=== PATIENT | female | born 1955 | race Caucasian/White ===

== ENCOUNTER 2016-10-08 17:24 | Emergency (ER) | payer MEDICARE ==
[2016-10-08 18:21] VITALS: PULSE 87
--- NOTE | 2016-10-08 18:54 | ERPHSYRPT ---
- History of Present Illness Source: patient, family Exam Limitations: no limitations Patient Subjective Stated Complaint: fall at noon Triage Nursing Assessment: fell back weedeating today and injured lt wrist and skin tear x2 to lt elbow. radial pulse present. swelling lt wrist noted. no other injury. pain with any movement Occurred: hours ago (6) Method of Injury: fell Quality: constant Severity of Pain-Max: moderate Severity of Pain-Current: moderate Extremities Pain Location: elbow: left, wrist: left Modifying Factors: Improves With: movement Hx Tetanus, Diphtheria Vaccination/Date Given: Yes Hx Influenza Vaccination/Date Given: No Hx Pneumococcal Vaccination/Date Given: No Immunizations Up to Date: Yes <ABEBE OLIVER - Last Filed: 10/08/16 18:50> <ARABELLA LIPSCOMB - Last Filed: 10/08/16 19:47> - History of Present Illness Time Seen by Provider: 10/08/16 18:30 Physician History: PT STATES SHE WAS WEED-EATING AT HOME AND FELL BACKWARDS WITH RESULTANT PAIN IN THE LEFT WRIST AND A SKIN TEAR ON THE LEFT ELBOW; PT CAN FEEL HER LEFT HAND DIGITS; DENIES ANY OTHER PAIN; DENIES PRIOR INJURY TO THE LEFT WRIST. (ARABELLA LIPSCOMB) Allergies/Adverse Reactions: No Known Drug Allergies Allergy (Verified 10/08/16 18:21) Home Medications: Clopidogrel Bisulfate [Plavix] 75 mg PO HS 04/09/12 [History] Albuterol Sulfate [Proventil Hfa] 2 puff IH QID 01/28/15 [History] Amlodipine Besylate 5 mg [Norvasc 5 mg] 5 mg PO HS 01/28/15 [History] Baclofen 20 mg PO QID 01/28/15 [History] Fluticasone/Salmeterol [Advair 250-50 Diskus] 1 puff IH BID 01/28/15 [History] Gabapentin Enacarbil [Horizant] 900 mg PO BID 01/28/15 [History] Ropinirole HCl 4 mg PO HS 01/28/15 [History] Tiotropium [place] [Spiriva] 18 mcg IH QAM 01/28/15 [History] Albuterol 2.5 mg/3 ml Neb [Proventil 2.5 mg/3 ml Neb] 2.5 mg IH Q6H [History] Escitalopram Oxalate 10 mg [Lexapro 10 MG] 20 mg PO HS 05/08/15 [History] Nitroglycerin 0.4 mg Tablet [Nitrostat 0.4 MG Tablet] 0.4 mg SL UD [History] Prednisone 10 mg [Deltasone 10 mg] 10 mg PO DAILY 08/24/15 [History] - Review of Systems Constitutional: No Symptoms Eyes: No Symptoms Ears, Nose, & Throat: No Symptoms Respiratory: No Symptoms Cardiac: No Symptoms Abdominal/Gastrointestinal: No Symptoms Musculoskeletal: Joint Pain (Left wrist and elbow), Joint Swelling Skin: Other (skin tear 3 cm length left elbow. Bleeding controlled.) Neurological: No Symptoms Psychological: No Symptoms Endocrine: No Symptoms Hematologic/Lymphatic: No Symptoms Immunological/Allergic: No Symptoms <ABEBE OLIVER - Last Filed: 10/08/16 18:50> - Past Medical History Pertinent Past Medical History: Yes Neurological History: Peripheral Neuropathy ENT History: No Pertinent History Cardiac History: Coronary Artery Disease, High Cholesterol, Hypertension, Myocardial Infarction ([place]) Respiratory History: COPD Endocrine Medical History: No Pertinent History Musculoskeletal History: Degenerative Disk Disease, Osteoarthritis GI Medical History: GERD, Gallbladder Disease History: No Pertinent History Psycho-Social History: Depression Female Reproductive Disorders: Fibroids Other Medical History: CERVICAL FUSION 08/2015. LEFT SHOULDER SURGERY 11/2015 - PER PATIENT HAD SPURS REMOVED. RESTLESS LEG SYNDROME. DEPRESSION - Past Surgical History Past Surgical History: Yes Neuro Surgical History: No Pertinent History Cardiac: Cardiac Catheterization, Cardiac Stent Respiratory: No Pertinent History Gastrointestinal: Cholecystectomy Genitourinary: No Pertinent History Musculoskeletal: Orthopedic Surgery Female Surgical History: Hysterectomy Other Surgical History: left knee scope. toe nail removel. shoulder surgery. thumb surgery - Social History Smoking Status: Current every day smoker How long have you smoked: 45 Exposure to second hand smoke: No Drug Use: none Patient Lives Alone: Yes - Female History Hx Now: No <ABEBE OLIVER - Last Filed: 10/08/16 18:50> - Physical Exam General Appearance: moderate distress Eyes, Ears, Nose, Throat Exam: normal ENT inspection, pharynx normal Neck Exam: normal inspection, non-tender, supple, full range of motion Cardiovascular/Respiratory Exam: chest non-tender, normal breath sounds Abdominal Exam: non-tender, soft Back Exam: normal inspection, normal range of motion Shoulder Exam: normal inspection, non-tender Elbow/Forearm Exam: abrasions Wrist Exam: bone tenderness, deformity, ecchymosis, soft tissue tenderness, swelling Hand Exam: normal inspection, non-tender, no evidence of injury Neuro/Tendon Exam: normal sensation, normal motor functions Mental Status Exam: alert, oriented x 3, cooperative Skin Exam: normal color, warm, dry SpO2 Interpretation: normal SpO2: 95 Oxygen Delivery: Room Air <ABEBE OLIVER - Last Filed: 10/08/16 18:50> - Course Nursing assessment & vital signs reviewed: Yes - Radiology Exams Left Wrist X-ray Interpretation: Interpreted by me, No Fracture <ARABELLA LIPSCOMB - Last Filed: 10/08/16 19:47> Ordered Tests: Active Orders 24 hr Category Date Time Status WRIST (MIN 3 VIEWS) Stat Exams 10/08/16 18:39 Taken <ABEBE OLIVER - Last Filed: 10/08/16 18:50> - Departure Time of Disposition: 19:47 Departure Disposition: Home Critical Care Time: No <ARABELLA LIPSCOMB - Last Filed: 10/08/16 19:47> - Departure Clinical Impression: SKIN TEAR TO THE LEFT ELBOW, LEFT WRIST SPRAIN Condition: Fair Referrals: JASVIR CALIXTO [Primary Care Provider] - Instructions: Prevent Falls, Wrist Sprain Additional Instructions: FOLLOW UP WITH PRIVATE DOCTOR TOMORROW. WEAR LEFT ARM SLING FOR COMFORT. WEAR FRED WRAP TO LEFT WRIST FOR 4 DAYS. ELEVATE LEFT WRIST ABOVE HEART LEVEL FOR 24 HOURS. KEEP BANDAGE ON LEFT ELBOW WOUND UNTIL PRIVATE DOCTOR IS SEEN TOMORROW. Prescriptions: Tramadol HCl 50 mg [Ultram 50 mg] 50 mg PO Q4H PRN PRN #14 tablet PRN Reason: Pain Cephalexin Monohydrate [Keflex] 500 mg PO TID #20 capsule
[2016-10-08] MEDS ORDERED: ULTRAM 50 MG PO ONE (19:47)
[2016-10-08] MEDS ORDERED: Rocephin 1000 MG INJ IM ONE (19:47)
[2016-10-08] MEDS ORDERED: Rocephin 1000 MG INJ ONE (19:59)
[2016-10-08] MEDS ORDERED: ULTRAM 50 MG ONE (19:59)
[2016-10-08] MEDS ORDERED: XYLOCAINE 1% HCL 20 ML MDV ONE (19:59)
[2016-10-08 20:31] VITALS: BP 118/60; O2SAT 100
--- NOTE | 2016-10-09 08:48 | XRAY ---
Indication: Pain following fall. Comparison: None 3 views of the left wrist demonstrates radiocarpal degenerative joint space narrowing, mild first metacarpal multangular degenerative changes, and what appears to be old nonunited ulnar styloid fracture. No other bony, articular, or soft tissue abnormalities.
== END 2016-10-08 20:31 | disposition home or self-care (01) ==
LOC: ED 17:24
DX: S51.012A Laceration without foreign body of left elbow, initial encounter (principal); S63.502A Unspecified sprain of left wrist, initial encounter; W01.0XXA Fall on same level from slipping, tripping and stumbling without subsequent striking against object, initial encounter; Y93.H2 Activity, gardening and landscaping
CPT/HCPCS: 73110; 96372; 99284; J0696; A9270-GY

== ENCOUNTER 2016-12-02 17:14 | Emergency (ER) | payer MEDICARE ==
[2016-12-02] MEDS ORDERED: NORCO 5/325 MG PO ONE (17:29)
[2016-12-02] MEDS ORDERED: BACIGUENT PACKET TP ONE (17:29)
[2016-12-02] MEDS ORDERED: BACIGUENT PACKET ONE (17:33)
[2016-12-02] MEDS ORDERED: NORCO 5/325 MG ONE (17:34)
[2016-12-02] MEDS ORDERED: Adacel Vial IM ONE ×2 (17:41→17:44)
--- NOTE | 2016-12-02 17:41 | ERPHSYRPT ---
- History of Present Illness Time Seen by Provider: 12/02/16 17:28 Source: patient Patient Subjective Stated Complaint: pt states she fell off of a ladder and injured left foot and ankle. pt c/o joshi to that area. denies hitting head. Triage Nursing Assessment: pt recinos, warm, dry. swelling and bruising noted to left foot. abrasion to left foot noted. pedal pulse strong. no deformity to ankle noted. Physician History: CC: fall Hx: 61 y/o patient of ROSIE Olson. She fell on a ladder. Hurt the left foot/ankle. She has an abrasion. Pain is moderate. Unsure last tetanus vaccine. No neck or back pain. Takes plavix. No head injury. No allergies. Hurts to walk. Occurred: just prior to arrival Lower Extremities Pain: foot: left, ankle: left Allergies/Adverse Reactions: No Known Drug Allergies Allergy (Verified 12/02/16 17:24) Home Medications: Clopidogrel Bisulfate [Plavix] 75 mg PO HS 04/09/12 [History] Albuterol Sulfate [Proventil Hfa] 2 puff IH QID 01/28/15 [History] Amlodipine Besylate 5 mg [Norvasc 5 mg] 5 mg PO HS 01/28/15 [History] Baclofen 20 mg PO QID 01/28/15 [History] Fluticasone/Salmeterol [Advair 250-50 Diskus] 1 puff IH BID 01/28/15 [History] Gabapentin Enacarbil [Horizant] 900 mg PO BID 01/28/15 [History] Ropinirole HCl 4 mg PO HS 01/28/15 [History] Tiotropium [place] [Spiriva] 18 mcg IH QAM 01/28/15 [History] Albuterol 2.5 mg/3 ml Neb [Proventil 2.5 mg/3 ml Neb] 2.5 mg IH Q6H [History] Escitalopram Oxalate 10 mg [Lexapro 10 MG] 20 mg PO HS 05/08/15 [History] Nitroglycerin 0.4 mg Tablet [Nitrostat 0.4 MG Tablet] 0.4 mg SL UD [History] Prednisone 10 mg [Deltasone 10 mg] 10 mg PO DAILY 08/24/15 [History] Hx Tetanus, Diphtheria Vaccination/Date Given: Yes (up to date) Hx Influenza Vaccination/Date Given: No Hx Pneumococcal Vaccination/Date Given: No Immunizations Up to Date: Yes - Review of Systems Constitutional: No Symptoms Eyes: No Symptoms Respiratory: No Dyspnea Cardiac: No Chest Pain, No Syncope Abdominal/Gastrointestinal: No Abdominal Pain, No Nausea, No Vomiting Musculoskeletal: Fall, Injury (left foot/ankle), No Back Pain, No Neck Pain Skin: No Rash Neurological: No Focal Weakness, No Headache, No Parasthesia All Other Systems: Reviewed and Negative - Past Medical History Pertinent Past Medical History: Yes Neurological History: Peripheral Neuropathy ENT History: No Pertinent History Cardiac History: Coronary Artery Disease, High Cholesterol, Hypertension, Myocardial Infarction ([place]) Respiratory History: COPD Endocrine Medical History: No Pertinent History Musculoskeletal History: Degenerative Disk Disease, Osteoarthritis GI Medical History: GERD, Gallbladder Disease History: No Pertinent History Psycho-Social History: Depression Female Reproductive Disorders: Fibroids Other Medical History: CERVICAL FUSION 08/2015. LEFT SHOULDER SURGERY 11/2015 - PER PATIENT HAD SPURS REMOVED. RESTLESS LEG SYNDROME. DEPRESSION - Past Surgical History Past Surgical History: Yes Neuro Surgical History: No Pertinent History Cardiac: Cardiac Catheterization, Cardiac Stent Respiratory: No Pertinent History Gastrointestinal: Cholecystectomy Genitourinary: No Pertinent History Musculoskeletal: Orthopedic Surgery Female Surgical History: Hysterectomy Other Surgical History: left knee scope. toe nail removel. shoulder surgery. thumb surgery - Social History Smoking Status: Current every day smoker How long have you smoked: 50 Exposure to second hand smoke: No Drug Use: none Patient Lives Alone: No - Female History Hx Now: No - Nursing Vital Signs Nursing Vital Signs: Initial Vital Signs Pulse Rate 76 Respiratory Rate 18 Blood Pressure [Right Arm] 144/71 Pain Intensity 9 - Physical Exam General Appearance: alert Eyes, Ears, Nose, Throat Exam: moist mucous membranes Neck Exam: normal inspection, non-tender, supple Cardiovascular/Respiratory Exam: chest non-tender, normal breath sounds, regular rate/rhythm Gastrointestinal/Abdominal Exam: non-tender, soft Hips Exam: bilateral: non-tender, normal inspection, normal range of motion Legs Exam: bilateral leg: non-tender, normal inspection, normal range of motion Knees Exam: bilateral knee: non-tender, normal inspection, normal range of motion Neuro/Tendon Exam: normal sensation, normal motor functions Mental Status Exam: alert, oriented x 3, cooperative Skin Exam: warm, dry, abrasion (left lateral ankle) Comments: swelling with ecchymosis left foot prox. Pulses intact. Some tenderness to foot and ankle. Left ankle tender. No fibular head or knee tenderness. - Course Nursing assessment & vital signs reviewed: Yes - Radiology Exams left foot/ankle X-ray Interpretation: Reviewed by me, No Fracture Ordered Tests: Active Orders 24 hr Category Date Time Status Cristobal Bandage Application -[facility] STAT Care 12/02/16 18:26 Active Cold Application STAT Care 12/02/16 17:29 Active Splint STAT Care 12/02/16 18:26 Active Wound Care STAT Care 12/02/16 17:29 Active ANKLE (3 VIEWS) Stat Exams 12/02/16 17:29 Taken FOOT (MINIMUM 3 VIEWS) Stat Exams 12/02/16 17:29 Taken Medication Summary Discontinued Medications Generic Name Dose Route Start Last Admin Trade Name Freq PRN Reason Stop Dose Admin Hydrocodone Bitart/Acetaminophen 1 tab 12/02/16 17:29 12/02/16 17:37 [place] 5/325 Mg PO 12/02/16 17:30 1 tab STAT ONE Administration Hydrocodone Bitart/Acetaminophen Confirm 12/02/16 17:34 [place] 5/325 Mg Administered 12/02/16 17:35 Dose 1 tab .ROUTE .STK-MED ONE Bacitracin 0.9 gm 12/02/16 17:29 12/02/16 17:57 Baciguent Packet TP 12/02/16 17:30 0.9 gm STAT ONE Administration Bacitracin Confirm 12/02/16 17:33 Baciguent Packet Administered 12/02/16 17:34 Dose 1 gm .ROUTE .STK-MED ONE Diphtheria/Tetanus/Acell Pertussis 0.5 ml 12/02/16 17:41 12/02/16 17:45 Adacel Vial IM 12/02/16 17:42 0.5 ml .ONCE ONE Administration Diphtheria/Tetanus/Acell Pertussis Confirm 12/02/16 17:44 Adacel Vial Administered 12/02/16 17:45 Dose 0.5 ml IM .STK-MED ONE - Progress Progress Note: 05/23/17 18:27 Sprain instructions given. Counseled pt/family regarding: diagnosis, need for follow-up, rad results - Departure Time of Disposition: 18:27 Departure Disposition: Home Clinical Impression: Abrasion of left ankle Left ankle sprain Qualifiers: Encounter type: initial encounter Involved ligament of ankle: other ligament Qualified Code(s): S93.492A - Sprain of other ligament of left ankle, initial encounter Condition: Stable Critical Care Time: No Referrals: JASVIR OLSON [Primary Care Provider] - Instructions: Ankle Sprain, Abrasion Additional Instructions: SPRAINS/STRAINS/CONTUSIONS 1. Rest the affected area as much as possible for the next few days. 2. Apply ice to the affected area for 20-30 minutes at a time, several times a day. 3. If you receive an elastic wrap, wear it only while awake for comfort and support. Re-wrap the elastic wrap if it feels too tight or too loose. 4. If swelling is present, elevate the affected part above the level of the heart for at least 2 to 3 days. 5. Use splints, slings, or crutches as instructed. 6. Watch for severe swelling, coldness, numbness, and discoloration of the fingers and toes. See your family physician or return to the emergency department if any of these are noted. Use ibuprofen 600mg three times a day with food. Follow up with ROSIE Olson. Limit weight bearing and ice, rest, cristobal, splint. Prescriptions: Ibuprofen 600 mg PO TID PRN PRN #20 tablet PRN Reason: Pain
[2016-12-02 18:43] VITALS: BP 148/70; PULSE 72; O2SAT 100
--- NOTE | 2016-12-03 08:55 | XRAY ---
Indication: Pain following fall. Comparison: January 28, 2015. 3 views of the left ankle demonstrates stable cuboid accessory ossicle. No new/acute bony, articular, or soft tissue abnormalities.
--- NOTE | 2016-12-03 08:57 | XRAY ---
Indication: Pain following fall. Comparison: January 28, 2015. 3 nonweightbearing views of the left foot demonstrates stable accessory ossicle adjacent to the cuboid and talonavicular articulation. No new/acute bony, articular, or soft tissue abnormalities.
== END 2016-12-02 18:43 | disposition home or self-care (01) ==
LOC: ED 17:14
DX: S93.492A Sprain of other ligament of left ankle, initial encounter (principal); S90.512A Abrasion, left ankle, initial encounter; S90.812A Abrasion, left foot, initial encounter; W11.XXXA Fall on and from ladder, initial encounter
CPT/HCPCS: 73610; 73630; 90471; 90715; 96372; 99283; 99284; A9270-GY

== ENCOUNTER 2017-06-28 07:20 | Emergency (ER) | payer MEDICARE ==
[2017-06-28] MEDS ORDERED: DUONEB 0.5-3 MG/3 ml Neb IH ONE ×2 (07:49→07:56)
[2017-06-28] MEDS ORDERED: solu-MEDROL 125 MG IV ONE (07:49)
[2017-06-28] MEDS ORDERED: Ativan 2 MG/1 ML VIAL IV ONE (07:49)
[2017-06-28] MEDS ORDERED: TORAdol 30 mg Injection IV ONE (07:51)
--- NOTE | 2017-06-28 07:52 | ERPHSYRPT ---
- History of Present Illness Time Seen by Provider: 06/28/17 07:44 Source: patient Exam Limitations: no limitations Patient Subjective Stated Complaint: PT C/O COUGH AND BACK PAIN FOR A COUPLE DAYS. REPORTS PAIN INCREASED WITH COUGH, Triage Nursing Assessment: PT IS AOX3, PUPILS PERRL, PT RESTLESS, UNABLE TO FIND POSITION OF COMFORT, AMBULATORY TO COT WITH STIFF GAIT, RESPS EASY AND NON LABORED, COARSE LUNG SOUNDS HEARD TO THE RIGHT MID-LOWER LOBE, DRY, NON PRODUCTIVE COUGH PRESENT, RADIAL PULSES STRONG AND EQUAL, NO EDEMA APPRECIATED. PAIN GENERALIZED TO THE LOWER BACK THAT IS NON RADIATED, WORSE WITH COUGH AND DEEP BREATH. SHORTNESS OF BREATH WITH EXERTION. Physician History: The patient is a 61-year-old female complains of a cough and back pain that is worsening for 2 days. The coughing has made her back started to hurt. She has low back pain on both sides. She smokes and has COPD. She denies fever or chills. She was up most of the night due to the back discomfort. Her past medical history is significant for COPD, coronary artery disease, cardiac stent , hypertension, and depression. Timing/Duration: day(s) (2), gradual onset, worse Cough Quality/Degree: dry cough Possible Cause: frequent episodes Modifying Factors: Improves With: coughing, deep breath Associated Symptoms: cough, other (back pain) Allergies/Adverse Reactions: No Known Drug Allergies Allergy (Verified 06/28/17 07:43) Home Medications: Clopidogrel Bisulfate [Plavix] 75 mg PO DAILY 04/09/12 [History] Amlodipine Besylate 5 mg [Norvasc 5 mg] 5 mg PO DAILY 01/28/15 [History] Gabapentin Enacarbil [Horizant] 800 mg PO TID 01/28/15 [History] Ropinirole HCl 4 mg PO HS 01/28/15 [History] Tiotropium [place] [Spiriva] 18 mcg IH QAM 01/28/15 [History] Prednisone 10 mg [Deltasone 10 mg] 10 mg PO DAILY 08/24/15 [History] Albuterol Sulfate [Ventolin Hfa] 8 gm IH QID 06/28/17 [History] Atorvastatin Calcium [Lipitor 40Mg] 40 mg PO DAILY 06/28/17 [History] Carvedilol 6.25 mg [Coreg 6.25 MG] 6.25 mg PO BID 06/28/17 [History] Isosorbide Mononitrate 30 mg [Imdur 30 MG] 30 mg PO DAILY 06/28/17 [History ] Venlafaxine HCl ER 75 mg [Effexor XR 75 MG] 75 mg PO DAILY 06/28/17 [ History] Hx Tetanus, Diphtheria Vaccination/Date Given: Yes Hx Influenza Vaccination/Date Given: Yes Hx Pneumococcal Vaccination/Date Given: No Immunizations Up to Date: Yes - Review of Systems Constitutional: No Fever, No Chills Eyes: No Symptoms Ears, Nose, & Throat: No Symptoms Respiratory: Cough Cardiac: No Chest Pain, No Edema, No Syncope Abdominal/Gastrointestinal: No Abdominal Pain, No Nausea, No Vomiting, No Diarrhea Genitourinary Symptoms: No Dysuria Musculoskeletal: Back Pain Skin: No Rash Neurological: No Dizziness, No Focal Weakness, No Sensory Changes Psychological: No Symptoms Endocrine: No Symptoms Hematologic/Lymphatic: No Symptoms Immunological/Allergic: No Symptoms All Other Systems: Reviewed and Negative - Past Medical History Pertinent Past Medical History: Yes Neurological History: Peripheral Neuropathy ENT History: No Pertinent History Cardiac History: Coronary Artery Disease Respiratory History: COPD Endocrine Medical History: No Pertinent History Musculoskeletal History: Other GI Medical History: GERD, Gallbladder Disease History: No Pertinent History Psycho-Social History: Depression Female Reproductive Disorders: Fibroids Other Medical History: CAD W/ 2 STENTS 2009; L SHOULDER RTC REPAIR - Past Surgical History Past Surgical History: Yes Neuro Surgical History: No Pertinent History Cardiac: Cardiac Catheterization, Cardiac Stent Respiratory: No Pertinent History Gastrointestinal: Cholecystectomy Genitourinary: No Pertinent History Musculoskeletal: Orthopedic Surgery Female Surgical History: Hysterectomy Other Surgical History: left knee scope. toe nail removel. shoulder surgery. thumb surgery - Social History Smoking Status: Current every day smoker How long have you smoked: 50 Exposure to second hand smoke: No Drug Use: none Patient Lives Alone: Yes - Female History Hx Now: No - Nursing Vital Signs Nursing Vital Signs: Initial Vital Signs Temperature 99.0 F 06/28/17 07:27 Pulse Rate 97 H 06/28/17 07:27 Respiratory Rate 22 06/28/17 07:27 Blood Pressure 125/84 06/28/17 07:27 O2 Sat by Pulse Oximetry 93 L 06/28/17 07:27 Pain Scale Pain Intensity 10 - Physical Exam General Appearance: moderate distress Eye Exam: PERRL/EOMI, eyes nml inspection Ears, Nose, Throat Exam: normal ENT inspection, TMs normal, pharynx normal, moist mucous membranes Neck Exam: normal inspection, non-tender, supple, full range of motion Respiratory Exam: rhonchi Cardiovascular Exam: regular rate/rhythm, normal heart sounds Gastrointestinal/Abdomen Exam: soft, No tenderness Pelvic Exam: not done Rectal Exam: not done Back Exam: decreased range of motion, muscle spasm (lumbar bilateral paraspinous muscles) Extremity Exam: normal inspection, normal range of motion Neurologic Exam: alert, oriented x 3, cooperative, normal mood/affect, sensation nml, No motor deficits Skin Exam: normal color, warm, dry, No rash Lymphatic Exam: No adenopathy SpO2 Interpretation: borderline oxygenation SpO2: 93 Oxygen Delivery: Room Air - Radiology Exams Chest X-ray Interpretation: Interpreted by me, Negative (stable nonacute chest with unchanged RML atelecstasis comp CXR 05/08/15.) Ordered Tests: Active Orders 24 hr Category Date Time Status IV Insertion STAT Care 06/28/17 07:37 Active Pulse Oximetry (ED) STAT Care 06/28/17 07:49 Active CHEST 2 VIEWS (PA AND LAT) Stat Exams 06/28/17 07:50 Taken Respiratory Nebulizer STAT RT 06/28/17 07:51 Completed Medication Summary Discontinued Medications Generic Name Dose Route Start Last Admin Trade Name Freq PRN Reason Stop Dose Admin Albuterol/Ipratropium 3 ml 06/28/17 07:49 06/28/17 08:00 Duoneb 0.5-3 Mg/3 Ml Neb IH 06/28/17 07:50 3 ml STAT ONE Administration Albuterol/Ipratropium Confirm 06/28/17 07:56 Duoneb 0.5-3 Mg/3 Ml Neb Administered 06/28/17 07:57 Dose 3 ml IH .STK-MED ONE Ketorolac Tromethamine 30 mg 06/28/17 07:51 06/28/17 08:04 Toradol 30 Mg Injection IV 06/28/17 07:52 30 mg STAT ONE Administration Ketorolac Tromethamine Confirm 06/28/17 07:58 Toradol 30 Mg Injection Administered 06/28/17 07:59 Dose 30 mg .ROUTE .STK-MED ONE Lorazepam 2 mg 06/28/17 07:49 06/28/17 08:04 Ativan 2 Mg/1 Ml Vial IV 06/28/17 07:50 2 mg STAT ONE Administration Lorazepam Confirm 06/28/17 07:58 Ativan 2 Mg/1 Ml Vial Administered 06/28/17 07:59 Dose 2 mg .ROUTE .STK-MED ONE Methylprednisolone Sodium Succinate 125 mg 06/28/17 07:49 06/28/17 08:04 Solu-Medrol 125 Mg IV 06/28/17 07:50 125 mg STAT ONE Administration Methylprednisolone Sodium Succinate Confirm 06/28/17 07:58 Solu-Medrol 125 Mg Administered 06/28/17 07:59 Dose 125 mg .ROUTE .STK-MED ONE - Progress Progress: improved Air Movement: good Progress Note: 06/28/17 08:23 After duoneb and ativan 2 mg and solumedrol 125 mg IV, pt is asleep and feeling better. 06/28/17 08:23 Counseled pt/family regarding: diagnosis, need for follow-up, rad results - Departure Time of Disposition: 08:26 Departure Disposition: Home Clinical Impression: Bronchitis, Back muscle spasm Condition: Stable Critical Care Time: No Referrals: JASVIR CALIXTO [Primary Care Provider] - Additional Instructions: You have bronchitis and low back muscle spasms. You were given a DuoNeb breathing treatment and Ativan 2 mg, Toradol 30 mg, and Solu-Medrol 125 mg by IV in the ER. Take prednisone 60 mg daily for 5 days. Take doxycycline 100 mg 2 times a day for 10 days. Take Flexeril 5 mg every 8 hours as needed for spasm. Follow up tomorrow. Prescriptions: Cyclobenzaprine HCl [Flexeril] 5 mg PO Q8H PRN PRN #10 tablet PRN Reason: Muscle Spasms Doxycycline Hyclate 100 mg [Vibramycin 100 MG] 1 tab PO BID #20 tab Prednisone 20 mg [Deltasone 20 mg] 3 tab PO DAILY #15 tablet
[2017-06-28] MEDS ORDERED: Ativan 2 MG/1 ML VIAL ONE (07:58)
[2017-06-28] MEDS ORDERED: TORAdol 30 mg Injection ONE (07:58)
[2017-06-28] MEDS ORDERED: solu-MEDROL 125 MG ONE (07:58)
--- NOTE | 2017-06-28 10:03 | XRAY ---
Indication: Cough. Comparison: May 12, 2015. PA/lateral chest hyperinflated and clear. Heart and mediastinal structures within normal limits. Bony thorax intact with minimal degenerative changes and pectus excavatum deformity. Impression: Nonacute hyperinflated chest.
[2017-06-28 10:28] VITALS: BP 144/62; PULSE 97; O2SAT 94
== END 2017-06-28 09:28 | disposition home or self-care (01) ==
LOC: ED 07:20
DX: J40 Bronchitis, not specified as acute or chronic (principal); M62.830 Muscle spasm of back; M54.9 Dorsalgia, unspecified; R05 Cough; M54.5 Low back pain; J44.9 Chronic obstructive pulmonary disease, unspecified; F17.200 Nicotine dependence, unspecified, uncomplicated; I25.10 Atherosclerotic heart disease of native coronary artery without angina pectoris; Z98.61 Coronary angioplasty status; I10 Essential (primary) hypertension; F32.9 Major depressive disorder, single episode, unspecified; Z79.899 Other long term (current) drug therapy
CPT/HCPCS: 36000; 71020; 94640; 96374; 96375; 99284; J1885; J2060; J2930; A9270-GY

== ENCOUNTER 2018-06-20 12:30 | Inpatient (IN) | payer MEDICARE ==
[2018-06-20] MEDS ORDERED: PROVENTIL 2.5 MG/3 ML NEB IH ONE ×3 (12:38→13:50)
[2018-06-20] MEDS ORDERED: DUONEB 0.5-3 MG/3 ml Neb IH ONE ×4 (12:42→18:57)
[2018-06-20] MEDS ORDERED: BABY ASPIRIN 81 MG CHEW PO ONE (12:44)
[2018-06-20] MEDS ORDERED: BABY ASPIRIN 81 MG CHEW ONE (12:46)
--- NOTE | 2018-06-20 12:50 | ERPHSYRPT ---
- History of Present Illness Time Seen by Provider: 06/20/18 12:40 Source: patient Exam Limitations: no limitations Patient Subjective Stated Complaint: Pt states "I have not been feeling well since and it is getting worse." Triage Nursing Assessment: Pt alert and oriented X 3, skin pwd. Pt ambulates with an upright steady gait, able to speak in clear full sentences. Pt has intermittant cough. PT able to speak in clear full sentences. Physician History: 62-year-old white female with history of coronary artery disease COPD peripheral neuropathy he arrives with shortness of breath and states that she feels like something heavy is on her chest symptoms 4 days fevers no nausea no vomiting states she has a nonproductive cough. Past medical history includes peripheral neuropathy, coronary disease, COPD, GERD, gallbladder, depression Past surgical history includes cardiac catheter, cardiac stents, left shoulder rotator cuff repair, hysterectomy. Social history positive for tobacco use Timing/Duration: day(s) (4 days) Activities at Onset: none Severity of Dyspnea-Max: moderate Severity of Dyspnea-Current: moderate Possible Cause: occasional episodes Modifying Factors: Improves With: albuterol nebulizer (patient uses nebulizers at home) Associated Symptoms: constant, cough, chest pain/discomfort (Heaviness in chest) , wheezing, No intermittent, No anxiety, No edema, No fever, No insomnia, No loss of appetite, No lightheadedness, No weakness, No ankle swelling, No chills , No hemoptysis, No calf pain, No dizziness, No heaviness, No heart racing, No lightheadedness, No leg swelling, No muscle spasms feet, No muscle spasms hands , No painful breathing, No productive cough, No sweating, No tightness, No tingling face, No tingling hands International travel in last 2 weeks: No Allergies/Adverse Reactions: No Known Drug Allergies Allergy (Verified 06/28/17 07:43) Home Medications: Clopidogrel Bisulfate [Plavix] 75 mg PO HS 04/09/12 [History] Amlodipine Besylate 5 mg [Norvasc 5 mg] 5 mg PO HS 01/28/15 [History] Ropinirole HCl 4 mg PO HS 01/28/15 [History] Atorvastatin Calcium [Lipitor 40Mg] 40 mg PO HS 06/28/17 [History] Carvedilol 6.25 mg [Coreg 6.25 MG] 6.25 mg PO BID 06/28/17 [History] Isosorbide Mononitrate 30 mg [Imdur 30 MG] 30 mg PO HS 06/28/17 [History] Albuterol Sulfate [Proair Hfa] 8.5 gm IH DAILY 06/20/18 [History] Gabapentin 800 mg PO TID 06/20/18 [History] Nitroglycerin 0.4 mg Tablet [Nitrostat 0.4 MG Tablet] 0.4 mg SL Q5MIN PRN MR X 3 PRN 06/20/18 [History] Ranolazine 500 MG [Ranexa 500 MG] 500 mg PO BID 06/20/18 [History] Venlafaxine HCl ER 75 mg [Effexor XR 75 MG] 75 mg PO HS 06/20/18 [History] Hx Tetanus, Diphtheria Vaccination/Date Given: Yes Hx Influenza Vaccination/Date Given: No Hx Pneumococcal Vaccination/Date Given: No Immunizations Up to Date: Yes - Review of Systems Constitutional: No Fever, No Chills Eyes: No Symptoms Ears, Nose, & Throat: No Symptoms Respiratory: Cough, Dyspnea, Wheezing Cardiac: Chest Pain (heaviness in chest), No Edema, No Palpitations, No Syncope , No Orthopnea, No PND, No Other Abdominal/Gastrointestinal: No Abdominal Pain, No Nausea, No Vomiting, No Diarrhea Genitourinary Symptoms: No Dysuria Musculoskeletal: No Back Pain, No Neck Pain Skin: No Rash Neurological: No Dizziness, No Focal Weakness, No Sensory Changes Psychological: No Symptoms Endocrine: No Symptoms All Other Systems: Reviewed and Negative - Past Medical History Pertinent Past Medical History: Yes Neurological History: Peripheral Neuropathy ENT History: No Pertinent History Cardiac History: High Cholesterol, Hypertension, Other Respiratory History: COPD Endocrine Medical History: No Pertinent History Musculoskeletal History: Other GI Medical History: GERD, Gallbladder Disease History: No Pertinent History Psycho-Social History: Depression Female Reproductive Disorders: Fibroids Other Medical History: RESTLESS LEG SYNDROME, - Past Surgical History Past Surgical History: Yes Neuro Surgical History: No Pertinent History Cardiac: Cardiac Catheterization, Cardiac Stent Respiratory: No Pertinent History Gastrointestinal: Cholecystectomy Genitourinary: No Pertinent History Musculoskeletal: Orthopedic Surgery Female Surgical History: Hysterectomy Other Surgical History: left knee scope. toe nail removel. shoulder surgery. thumb surgery - Social History Smoking Status: Current every day smoker How long have you smoked: years Exposure to second hand smoke: Yes Drug Use: none Patient Lives Alone: Yes - Female History Hx Now: No - Nursing Vital Signs Nursing Vital Signs: Initial Vital Signs Temperature 98.1 F 06/20/18 12:31 Pulse Rate 102 H 06/20/18 12:31 Respiratory Rate 22 06/20/18 12:31 Blood Pressure 136/72 06/20/18 12:31 O2 Sat by Pulse Oximetry 91 L 06/20/18 12:31 Pain Scale Pain Intensity 2 - Physical Exam General Appearance: mild distress Eye Exam: PERRL/EOMI Ears, Nose, Throat Exam: hearing grossly normal, normal ENT inspection, normal pharynx, No abnormal TM (R), No abnormal TM (L), No sinus pain/drainage, No hearing decreased, No nasal congestion, No pharyngeal erythema, No tonsillar exudate, No tonsillar swelling Neck Exam: normal inspection, supple, full range of motion Respiratory Exam: diminished breath sounds, wheezing Cardiovascular/Chest Exam: normal heart sounds, regular rate/rhythm, normal peripheral pulses, No murmur Abdominal/Gastrointestinal Exam: soft, No tenderness, No distention, No mass Extremity Exam: non-tender, normal range of motion, normal inspection, no calf tenderness, no pedal edema Peripheral Pulses Exam: dorsalis-pedis (R): 2+, dorsalis-pedis (L): 2+ Neurologic Exam: alert (all), oriented x 3, cooperative, performance test consultant II-XII nml as tested, sensation nml, No motor deficits Skin Exam: normal color, warm, No dry SpO2 Interpretation: normal (92%) SpO2: 92 Oxygen Delivery: Nasal Cannula - Course Nursing assessment & vital signs reviewed: Yes EKG Interpreted by Me: RATE (96 bpm), Sinus Rhythm, NORMAL AXIS, Other (EKG: Sinus rhythm, rate 96 beats per minute, normal axis, ST depression inferior leads present on previous EKGs compared to September 09, 2016) - Radiology Exams Chest X-ray Interpretation: Interpreted by me (right middle lobe atelectasis, no acute disease process noted) - CT Exams Chest CT Interpretation: Tele-radiologist Report (CTA chest: Impression 1. No pulmonary embolism visualized. 2. bibasilar opacities more marked in the right and may be due to atelectasis, although an acute infiltrate in the right lower lobe is not excluded. Follow-up recommended until clear to exclude underlying disease.) Ordered Tests: Active Orders 24 hr Category Date Time Status Bedrest with BRP/BSC ROUTINE Activity 06/20/18 17:20 Active Call Admit Doctor for Orders ON ADMISSION Care 06/20/18 17:20 Active Government Sales Manager STAT Care 06/20/18 12:38 Completed Code Status Order ROUTINE Care 06/20/18 17:20 Active EKG-ER Only STAT Care 06/20/18 12:39 Completed IV Care Q6H Care 06/20/18 17:20 Active IV Insertion STAT Care 06/20/18 12:39 Completed Oxygen-ED Only NASAL CANNULA 2 lpm Care 06/20/18 12:[address] in Observation ROUTINE Care 06/20/18 17:20 Active Pulse Oximetry (ED) STAT Care 06/20/18 12:46 Completed Telemetry q6h Care 06/20/18 17:20 Active Weight,Daily 0600 Care 06/20/18 17:20 Active Cardiac Diet Diet 06/20/18 Breakfast Active CHEST 1 VIEW (PORTABLE) Stat Exams 06/20/18 12:38 Completed CHEST WITH CONTRAST [CT] Stat Exams 06/20/18 14:00 Completed BLOOD CULTURE Stat Lab 06/20/18 13:10 Received CBC W DIFF AM.LAB Lab 06/21/18 05:30 Completed CBC W DIFF Stat Lab 06/20/18 13:15 Completed CMP AM.LAB Lab 06/21/18 05:30 Completed CMP Stat Lab 06/20/18 12:45 Completed CULTURE,SPUTUM Stat Lab 06/20/18 12:38 Uncollected D-DIMER QUANTITATION Stat Lab 06/20/18 12:45 Completed NT PRO BNP Stat Lab 06/20/18 12:45 Completed PROTIME WITH INR Stat Lab 06/20/18 12:45 Completed PTT Stat Lab 06/20/18 12:45 Completed TROPONIN Q3H Lab 06/20/18 13:10 Completed TROPONIN Q3H Lab 06/20/18 15:45 Completed TROPONIN Q3H Lab 06/20/18 18:45 Completed TROPONIN Q3H Lab 06/20/18 21:45 Completed TROPONIN Q3H Lab 06/21/18 00:45 Completed VENOUS BLOOD GAS Stat Lab 06/20/18 12:38 Completed Oxygen NASAL CANNULA 2 lpm RT 06/20/18 17:20 Active Pulse Oximetry CONTINUOUS RT 06/20/18 17:20 Active Respiratory Nebulizer STAT RT 06/20/18 12:39 Completed Respiratory Nebulizer STAT RT 06/20/18 12:51 Completed Respiratory Nebulizer STAT RT 06/20/18 13:45 Completed Respiratory Therapy Assessment DAILY RT 06/20/18 13:09 Completed Respiratory Therapy Assessment DAILY RT 06/20/18 13:51 Completed Respiratory Therapy Consult ROUTINE RT 06/20/18 17:20 Completed Medication Summary Generic Name Dose Route Start Last Admin Trade Name Freq PRN Reason Stop Dose Admin Acetaminophen 650 mg 06/20/18 19:06 06/20/18 22:02 Tylenol 325 Mg PO 07/20/18 19:05 650 mg Q4H PRN PRN Administration PAIN AND/OR FEVER Albuterol/Ipratropium 3 ml 06/20/18 19:00 06/20/18 19:10 Duoneb 0.5-3 Mg/3 Ml Neb IH 07/20/18 18:59 3 ml QIDRT MOISES Administration Albuterol/Ipratropium 3 ml 06/20/18 19:09 Duoneb 0.5-3 Mg/3 Ml Neb IH 07/20/18 19:08 Q4HPRN PRN SHORTNESS OF BREATH/WHEEZING Amlodipine Besylate 5 mg 06/20/18 22:00 06/20/18 22:00 Norvasc 5 Mg PO 07/20/18 21:59 5 mg HS MOISES Administration Benzonatate 200 mg 06/20/18 19:06 06/20/18 22:12 Tessalon Perles 100 Mg PO 07/20/18 19:05 200 mg Q4HPRN PRN Administration COUGH Carvedilol 6.25 mg 06/20/18 22:00 06/20/18 21:59 Coreg 6.25 Mg PO 07/20/18 21:59 6.25 mg BID MOISES Administration Clopidogrel Bisulfate 75 mg 06/20/18 22:00 06/20/18 22:00 Plavix 75 Mg Tablet PO 07/20/18 21:59 75 mg HS MOISES Administration Enoxaparin Sodium 40 mg 06/21/18 21:00 Enoxaparin Sodium SQ 07/21/18 20:59 Q24H MOISES Gabapentin 800 mg 06/20/18 22:00 06/20/18 21:59 Neurontin 400 Mg PO 07/20/18 21:59 800 mg TID MOISES Administration Ceftriaxone Sodium/Dextrose 1 g in 50 mls @ 100 mls/hr 06/21/18 10:00 Rocephin 1 Gm-D5w 50 Ml Bag IV 07/21/18 09:59 Q24H10 MOISES Azithromycin 500 mg in 250 mls @ 250 mls/hr 06/20/18 19:24 06/20/18 19:25 Zithromax 500 Mg/ 250 Ml Nacl Premix IV 07/20/18 18:59 250 mls/hr 1900 MOISES Administration Isosorbide Mononitrate 30 mg 06/20/18 22:00 06/20/18 21:59 Imdur 30 Mg PO 07/20/18 21:59 30 mg HS MOISES Administration Methylprednisolone Sodium Succinate 80 mg 06/21/18 08:00 Solu-Medrol 125 Mg IV 07/21/18 07:59 Q6H MOISES Nitroglycerin 0.4 mg 06/20/18 20:10 Nitrostat 0.4 Mg Tablet SL 07/20/18 20:09 PRN PRN CHEST PAIN Ranolazine 500 mg 06/20/18 22:00 06/20/18 22:00 Ranexa 500 Mg PO 07/20/18 21:59 500 mg Q12HT MOISES Administration Ropinirole HCl 4 mg 06/20/18 22:00 06/20/18 22:00 Requip 2mg Tab PO 07/20/18 21:59 4 mg HS MOISES Administration Simvastatin 40 mg 06/20/18 22:00 06/20/18 22:01 Zocor 20mg PO 07/20/18 21:59 40 mg HS MOISES Administration Venlafaxine HCl 75 mg 06/20/18 22:00 06/20/18 21:59 Effexor Xr 75 Mg PO 07/20/18 21:59 75 mg HS MOISES Administration Discontinued Medications Generic Name Dose Route Start Last Admin Trade Name Freq PRN Reason Stop Dose Admin Albuterol Sulfate 2.5 mg 06/20/18 12:38 06/20/18 13:02 Proventil 2.5 Mg/3 Ml Neb IH 06/20/18 12:39 Not Given STAT ONE Albuterol Sulfate Confirm 06/20/18 13:45 Proventil 2.5 Mg/3 Ml Neb Administered 06/20/18 13:46 Dose 2.5 mg IH .STK-MED ONE Albuterol Sulfate 2.5 mg 06/20/18 13:50 06/20/18 14:45 Proventil 2.5 Mg/3 Ml Neb IH 06/20/18 13:51 Not Given STAT ONE Albuterol/Ipratropium Confirm 06/20/18 12:42 Duoneb 0.5-3 Mg/3 Ml Neb Administered 06/20/18 12:43 Dose 3 ml IH .STK-MED ONE Albuterol/Ipratropium 3 ml 06/20/18 12:51 06/20/18 13:06 Duoneb 0.5-3 Mg/3 Ml Neb IH 06/20/18 12:52 3 ml STAT ONE Administration Albuterol/Ipratropium 3 ml 06/20/18 13:44 06/20/18 14:46 Duoneb 0.5-3 Mg/3 Ml Neb IH 06/20/18 13:45 Not Given STAT ONE Albuterol/Ipratropium Confirm 06/20/18 18:57 Duoneb 0.5-3 Mg/3 Ml Neb Administered 06/20/18 18:58 Dose 3 ml IH .STK-MED ONE Aspirin 324 mg 06/20/18 12:44 06/20/18 12:47 Baby Aspirin 81 Mg Chew PO 06/20/18 12:45 324 mg STAT ONE Administration Aspirin Confirm 06/20/18 12:46 Baby Aspirin 81 Mg Chew Administered 06/20/18 12:47 Dose 324 mg .ROUTE .STK-MED ONE Enoxaparin Sodium 40 mg 06/20/18 19:46 06/20/18 21:58 Enoxaparin Sodium SQ 06/20/18 19:47 Not Given 1XONLY ONE Ceftriaxone Sodium/Dextrose 1 g in 50 mls @ 100 mls/hr 06/20/18 15:50 16:33 Rocephin 1 Gm-D5w 50 Ml Bag IV 06/20/18 16:19 Infused STAT STA Infusion Ceftriaxone Sodium/Dextrose Confirm 06/20/18 15:55 Rocephin 1 Gm-D5w 50 Ml Bag Administered 06/20/18 15:56 Dose 1 g in 50 mls @ ud IV .STK-MED ONE Azithromycin 500 mg in 250 mls @ 250 mls/hr 06/21/18 10:00 Zithromax 500 Mg/ 250 Ml Nacl Premix IV 07/21/18 09:59 Q24H10 MOISES Azithromycin Confirm 06/20/18 18:44 Zithromax 500 Mg/ 250 Ml Nacl Premix Administered 06/20/18 18:45 Dose 500 mg in 250 mls @ ud IV .STK-MED ONE Azithromycin 500 mg in 250 mls @ 250 mls/hr 06/20/18 19:22 Zithromax 500 Mg/ 250 Ml Nacl Premix IV 07/20/18 19:21 Q24H10 MOISES Methylprednisolone Sodium Succinate 125 mg 06/20/18 13:45 06/20/18 13:49 Solu-Medrol 125 Mg IV 06/20/18 13:46 125 mg STAT ONE Administration Methylprednisolone Sodium Succinate Confirm 06/20/18 13:47 Solu-Medrol 125 Mg Administered 06/20/18 13:48 Dose 125 mg .ROUTE .STK-MED ONE Methylprednisolone Sodium Succinate 80 mg 06/20/18 17:20 06/21/18 01:43 Solu-Medrol 125 Mg IV 07/20/18 17:19 80 mg Q6H MOISES Administration Nitroglycerin 0.4 mg 06/20/18 19:42 Nitrostat 0.4 Mg (Ed) SL 06/20/18 19:43 STAT ONE Ondansetron HCl 4 mg 06/20/18 13:52 06/20/18 13:58 Zofran 4 Mg/2 Ml Vial IV 06/20/18 13:53 4 mg STAT ONE Administration Ondansetron HCl Confirm 06/20/18 13:56 Zofran 4 Mg/2 Ml Vial Administered 06/20/18 13:57 Dose 4 mg .ROUTE .STK-MED ONE Lab/Rad Data: Laboratory Result Diagrams 06/20/18 13:15 06/20/18 12:45 Laboratory Results 06/20/18 06/20/18 06/20/18 Range/Units 15:45 13:15 13:10 WBC 10.6 H (4.0-10.5) K/mm3 RBC 4.29 (4.1-5.4) M/mm3 Hgb 14.7 (12.0-16.0) gm/dl Hct 44.8 (35-47) % MCV 104.4 H (78-100) fl MCH 34.3 H (26-32) pg MCHC 32.8 (32-36) g/dl RDW 12.2 (11.5-14.0) % Plt Count 183 (150-450) K/mm3 MPV 10.2 H (6-9.5) fl Gran % 69.7 H (36.0-66.0) % Eos # (Auto) 0.02 (0-0.5) Absolute Lymphs (auto) 1.98 (1.0-4.6) Absolute Monos (auto) 1.18 (0.0-1.3) Lymphocytes % 18.8 L (24.0-44.0) % Monocytes % 11.2 (0.0-12.0) % Eosinophils % 0.2 (0.00-5.0) % Basophils % 0.1 (0.0-0.4) % Absolute Granulocytes 7.36 H (1.4-6.9) Basophils # 0.01 (0-0.4) PT (9.95-12.35) SECONDS INR (0.8-3.0) APTT (25.3-37.0) SECONDS D-Dimer (215-500) ng/mL pO2/FiO2 Ratio % VBG pH (7.32-7.42) VBG pCO2 at Pat Temp (42-55) mm/Hg VBG pO2 at Pat Temp (25-40) mm/Hg VBG HCO3 (22-28) meq/L VBG O2 Sat (Josefina) (95-100) VBG Base Excess (-2.0-2.0) VBG Hemoglobin VBG Carboxyhemoglobin (0.0-6.9) % T HGB POC Potassium Sodium (137-145) mmol/L Potassium (3.5-5.1) mmol/L Chloride (98-107) mmol/L Carbon Dioxide (22-30) mmol/L Anion Gap (5-15) MEQ/L BUN (7-17) mg/dL Creatinine (0.52-1.04) mg/dL Estimated GFR ML/MIN Glucose (74-106) mg/dL Calcium (8.4-10.2) mg/dL Total Bilirubin (0.2-1.3) mg/dL AST (14-36) U/L ALT (0-35) U/L Alkaline Phosphatase (38-126) U/L Troponin I < 0.012 < 0.012 (0.000-0.034) ng/mL NT-Pro-B Natriuret Pep (0-900) pg/mL Serum Total Protein (6.3-8.2) g/dL Albumin (3.5-5.0) g/dL 06/20/18 06/20/18 06/20/18 Range/Units 12:45 12:45 12:38 WBC (4.0-10.5) K/mm3 RBC (4.1-5.4) M/mm3 Hgb (12.0-16.0) gm/dl Hct (35-47) % MCV (78-100) fl MCH (26-32) pg MCHC (32-36) g/dl RDW (11.5-14.0) % Plt Count (150-450) K/mm3 MPV (6-9.5) fl Gran % (36.0-66.0) % Eos # (Auto) (0-0.5) Absolute Lymphs (auto) (1.0-4.6) Absolute Monos (auto) (0.0-1.3) Lymphocytes % (24.0-44.0) % Monocytes % (0.0-12.0) % Eosinophils % (0.00-5.0) % Basophils % (0.0-0.4) % Absolute Granulocytes (1.4-6.9) Basophils # (0-0.4) PT 12.8 H (9.95-12.35) SECONDS INR 1.10 (0.8-3.0) APTT 31.1 (25.3-37.0) SECONDS D-Dimer 809 H* (215-500) ng/mL pO2/FiO2 Ratio 28.0 % VBG pH 7.41 (7.32-7.42) VBG pCO2 at Pat Temp 43 (42-55) mm/Hg VBG pO2 at Pat Temp 18 L (25-40) mm/Hg VBG HCO3 27.3 (22-28) meq/L VBG O2 Sat (Josefina) 40.4 L (95-100) VBG Base Excess 2.2 H (-2.0-2.0) VBG Hemoglobin 14.5 VBG Carboxyhemoglobin 1.9 (0.0-6.9) % T HGB POC Potassium [employer] Sodium 135 L (137-145) mmol/L Potassium 3.8 (3.5-5.1) mmol/L Chloride 100 (98-107) mmol/L Carbon Dioxide 27 (22-30) mmol/L Anion Gap 11.7 (5-15) MEQ/L BUN 17 (7-17) mg/dL Creatinine 0.87 (0.52-1.04) mg/dL Estimated GFR > 60.0 ML/MIN Glucose 112 H (74-106) mg/dL Calcium 9.1 (8.4-10.2) mg/dL Total Bilirubin 0.90 (0.2-1.3) mg/dL AST 16 (14-36) U/L ALT 15 (0-35) U/L Alkaline Phosphatase 113 (38-126) U/L Troponin I (0.000-0.034) ng/mL NT-Pro-B Natriuret Pep 123 (0-900) pg/mL Serum Total Protein 7.3 (6.3-8.2) g/dL Albumin 4.3 (3.5-5.0) g/dL - Progress Progress: improved Air Movement: fair Progress Note: 06/20/18 16:39 Patient improved but still short of breath after DuoNeb treatment, albuterol treatment IV Solu-Medrol I patient given Rocephin 1 g IV also given aspirin [address] of the chest pain secondary to elevated d-dimer negative for pulmonary embolism did show atelectasis in the bases and pneumonia could not be ruled out. Case discussed with Dr staton interventionist for Dr. Hernández will place patient on observation. Continue duo neb treatments IV Rocephin begin Zithromax continue Solu-Medrol. Continue serial troponins. Continue telemetry. - Departure Time of Disposition: 17:10 Departure Disposition: Observation Clinical Impression: Shortness of breath COPD (chronic obstructive pulmonary disease) Qualifiers: COPD type: COPD with acute exacerbation Qualified Code(s): J44.1 - Chronic obstructive pulmonary disease with (acute) exacerbation Condition: Fair Critical Care Time: No
[2018-06-20 13:05] LABS: VBG BASE EXCESS 2.2 (-2.0-2.0); VBG CARBOXYHEMOGLOBIN 1.9 % T HGB (0.0-6.9); VBG HCO3- 27.3 meq/L (22-28); VBG HEMOGLOBIN 14.5; VBG O2 SATURATION 40.4 (95-100); VBG PCO2 43 mm/Hg (42-55); VBG pH 7.41 (7.32-7.42)
[2018-06-20 13:20] LABS: BASOPHIL % 0.1 % (0.0-0.4); Basophil (Absolute #) 0.01 (0-0.4); Eosinophil % 0.2 % (0.00-5.0); Eosinophil (Absolute #) 0.02 (0-0.5); Granulocyte Absolute (ANC) 7.36 (1.4-6.9); Granulocytes % 69.7 % (36.0-66.0); Hematocrit 44.8 % (35-47); Hemoglobin 14.7 gm/dl (12.0-16.0); Lymphocyte (Absolute #) 1.98 (1.0-4.6); Lymphocytes % 18.8 % (24.0-44.0); Mean Cell Volume 104.4 fl (78-100); Mean Corpuscular Hemoglobin 34.3 pg (26-32); Mean Corpuscular Hgb Concent. 32.8 g/dl (32-36); Mean Platelet Volume 10.2 fl (6-9.5); Monocyte (Absolute #) 1.18 (0.0-1.3); Monocytes % 11.2 % (0.0-12.0); Platelet Count 183 K/mm3 (150-450); Red Blood Count 4.29 M/mm3 (4.1-5.4); Red Cell Distribution Width 12.2 % (11.5-14.0); White Blood Count 10.6 K/mm3 (4.0-10.5)
[2018-06-20 13:39] LABS: INR 1.1 (0.8-3.0); PTT 31.1 SECONDS (25.3-37.0)
[2018-06-20] MEDS ORDERED: solu-MEDROL 125 MG IV ONE (13:45)
[2018-06-20] MEDS ORDERED: solu-MEDROL 125 MG ONE (13:47)
[2018-06-20 13:51] LABS: ALBUMIN 4.3 g/dL (3.5-5.0); ALKALINE PHOSPHATASE 113 U/L (38-126); ANION GAP 11.7 MEQ/L (5-15); BLOOD UREA NITROGEN 17 mg/dL (7-17); CHLORIDE 100 mmol/L (98-107); Calcium 9.1 mg/dL (8.4-10.2); Carbon Dioxide 27 mmol/L (22-30); Creatinine 1 0.87 mg/dL (0.52-1.04); Glucose 112 mg/dL (74-106); NT PRO BNP 123 pg/mL (0-900); Potassium 3.8 mmol/L (3.5-5.1); SGOT/AST 16 U/L (14-36); SGPT/ALT 15 U/L (0-35); SODIUM 135 mmol/L (137-145); Total Protein 7.3 g/dL (6.3-8.2)
[2018-06-20] MEDS ORDERED: Zofran 4 MG/2 ML VIAL IV ONE (13:52)
[2018-06-20] MEDS ORDERED: Zofran 4 MG/2 ML VIAL ONE (13:56)
[2018-06-20] MEDS ORDERED: ROCEPHIN 1 Gm-D5w 50 ml Bag** 1 G/50 ML IVPB IV STA (15:50)
[2018-06-20] MEDS ORDERED: ROCEPHIN 1 Gm-D5w 50 ml Bag** 1 G/50 ML IVPB IV ONE (15:55)
[2018-06-20] MEDS: solu-MEDROL 125 MG IV SCH (18:36)
[2018-06-20] MEDS ORDERED: Zithromax 500 MG/ 250 ML NaCl Premix 500 MG/250 ML IVPB IV ONE (18:44)
[2018-06-20] MEDS ORDERED: Tessalon Perles 100 MG PO PRN (19:06)
[2018-06-20] MEDS ORDERED: TYLENOL 325 MG PO PRN (19:06)
[2018-06-20] MEDS ORDERED: DUONEB 0.5-3 MG/3 ml Neb IH PRN (19:09)
[2018-06-20] MEDS: DUONEB 0.5-3 MG/3 ml Neb IH SCH (19:10)
[2018-06-20] MEDS ORDERED: Zithromax 500 MG/ 250 ML NaCl Premix 500 MG/250 ML IVPB IV SCH (19:22)
[2018-06-20] MEDS: Zithromax 500 MG/ 250 ML NaCl Premix 500 MG/250 ML IVPB IV SCH (19:25)
[2018-06-20] MEDS ORDERED: Nitrostat 0.4 MG (ED) SL ONE (19:42)
[2018-06-20] MEDS ORDERED: ENOXAPARIN SODIUM SQ ONE (19:46)
--- NOTE | 2018-06-20 20:00 | XRAY ---
Indication: Short of breath and elevated d-dimer. Multiple contiguous axial images obtained through the chest using 80 cc of Isovue-370 contrast and PE protocol. Comparison: None There is satisfactory opacification of the pulmonary arteries to include the lobar and segmental branches. No filling defect or pulmonary embolus. Heart is not enlarged. Aorta minimally arteriosclerotic without aneurysm/dissection. No pathologic mediastinal/hilar lymphadenopathy. Examination of the lung parenchyma demonstrates mild pulmonary emphysema. Bilateral lower lobe and lesser degree inferior lingula infiltrates/atelectasis, right greater than left. No effusion. Bony thorax is intact. Limited upper abdomen demonstrates cholecystectomy clips. Impression: 1. Negative pulmonary embolus. 2. Bilateral lower lobe and lingula infiltrates/atelectasis. Correlate clinically. 3. Mild pulmonary emphysema. Comment: Preliminary interpretation was made by [facility]. No critical discrepancy. CTDI 10.22
--- NOTE | 2018-06-20 20:02 | XRAY ---
Indication: Short of breath. Comparison: June 28, 2017. Portable chest demonstrates new right basilar infiltrates versus atelectasis. Remaining heart and lungs unremarkable. Bony thorax intact again with cervical thoracic junction fusion surgery.
[2018-06-20] MEDS ORDERED: Nitrostat 0.4 MG Tablet SL PRN (20:10)
[2018-06-20] MEDS: Neurontin 400 MG PO SCH (21:59)
[2018-06-20] MEDS: Effexor XR 75 MG PO SCH (21:59)
[2018-06-20] MEDS: Coreg 6.25 MG PO SCH (21:59)
[2018-06-20] MEDS: PLAVIX 75 MG Tablet PO SCH (22:00)
[2018-06-20] MEDS: REQUIP 2MG TAB PO SCH (22:00)
[2018-06-20] MEDS: Ranexa 500 MG PO SCH (22:00)
[2018-06-20] MEDS: NORVASC 5 MG PO SCH (22:00)
[2018-06-20] MEDS ORDERED: Imdur 30 MG PO SCH (22:00)
[2018-06-20] MEDS: ZOCOR 20MG PO SCH (22:01)
[2018-06-21] MEDS: solu-MEDROL 125 MG IV SCH ×4 (01:43→20:27)
[2018-06-21 05:43] LABS: BASOPHIL % 0.1 % (0.0-0.4); Basophil (Absolute #) 0.01 (0-0.4); Eosinophil (Absolute #) 0 (0-0.5); Granulocyte Absolute (ANC) 8.33 (1.4-6.9); Granulocytes % 86.2 % (36.0-66.0); Hematocrit 40.4 % (35-47); Hemoglobin 13.4 gm/dl (12.0-16.0); Lymphocyte (Absolute #) 0.97 (1.0-4.6); Mean Cell Volume 102.8 fl (78-100); Mean Corpuscular Hgb Concent. 33.2 g/dl (32-36); Mean Platelet Volume 9.9 fl (6-9.5); Monocyte (Absolute #) 0.36 (0.0-1.3); Monocytes % 3.7 % (0.0-12.0); Platelet Count 173 K/mm3 (150-450); Red Blood Count 3.93 M/mm3 (4.1-5.4); Red Cell Distribution Width 11.8 % (11.5-14.0); White Blood Count 9.7 K/mm3 (4.0-10.5)
[2018-06-21 06:01] LABS: ALBUMIN 3.8 g/dL (3.5-5.0); ALKALINE PHOSPHATASE 100 U/L (38-126); ANION GAP 12.4 MEQ/L (5-15); BLOOD UREA NITROGEN 19 mg/dL (7-17); CHLORIDE 104 mmol/L (98-107); Calcium 8.9 mg/dL (8.4-10.2); Carbon Dioxide 25 mmol/L (22-30); Creatinine 1 0.76 mg/dL (0.52-1.04); Glucose 134 mg/dL (74-106); Potassium 4.1 mmol/L (3.5-5.1); SGOT/AST 15 U/L (14-36); SGPT/ALT 16 U/L (0-35); SODIUM 137 mmol/L (137-145); Total Protein 6.8 g/dL (6.3-8.2)
[2018-06-21] MEDS: DUONEB 0.5-3 MG/3 ml Neb IH SCH ×4 (07:25→21:25)
--- NOTE | 2018-06-21 09:12 | PCM.HP ---
History of Present Illness - Chief Complaint Chief Complaint: Shortness of Breath History of Present Illness: is a 62 year old female pt of [email or web address] with hx COPD and CAD who was admitted yesterday with cough, feeling poorly, and chest pain. Chest pain was 8/10, L sided, non radiating, with SOB, without nausea, diaphoresis, or palpitations. She had troponins neg x 5. She started feeling badly about 4 days ago, unsure if any fever, but increased nonproductive cough. Extremely fatigued, "sleeping all the time." Worse yesterday so she drove herself to ER. Pt was found to have CT chest negative for PE, but bilat lower lobe/lingula infiltrates v atelectasis. mild emphysema. She was admitted on IV rocephin and zithromax and nebulizer treatments. Methylprednisolone 80mg IV q6h. She is feeling better this morning. - Review of Systems Constitutional: Fatigue Respiratory: Cough, Short Of Breath Cardiac: Chest Pain Psychological: No Anxiety, No Depression, No Suicidal Ideations All Other Systems: Reviewed and Negative Medications & Allergies Home Medications: Home Medication List Clopidogrel Bisulfate [Plavix] 75 mg PO HS 04/09/12 [History Confirmed 06/20/18] Amlodipine Besylate 5 mg [Norvasc 5 mg] 5 mg PO HS 01/28/15 [History Confirmed 06/20/18] Ropinirole HCl 4 mg PO HS 01/28/15 [History Confirmed 06/20/18] Atorvastatin Calcium [Lipitor 40Mg] 40 mg PO HS 06/28/17 [History Confirmed 03/30] Carvedilol 6.25 mg [Coreg 6.25 MG] 6.25 mg PO BID 06/28/17 [History Confirmed 06/20/18] Isosorbide Mononitrate 30 mg [Imdur 30 MG] 60 mg PO HS 06/28/17 [History Confirmed 06/21/18] Albuterol Sulfate [Proair Hfa] 8.5 gm IH DAILY 06/20/18 [History Confirmed 06/20] Gabapentin 800 mg PO TID 06/20/18 [History Confirmed 06/20/18] Nitroglycerin 0.4 mg Tablet [Nitrostat 0.4 MG Tablet] 0.4 mg SL Q5MIN PRN MR X 3 PRN 06/20/18 [History Confirmed 06/20/18] Ranolazine 500 MG [Ranexa 500 MG] 500 mg PO BID 06/20/18 [History Confirmed 06/20/18] Venlafaxine HCl ER 75 mg [Effexor XR 75 MG] 75 mg PO HS 06/20/18 [History Confirmed 06/20/18] Allergies/Adverse Reactions: Allergies Allergy/AdvReac Type Severity Reaction Status Date / Time No Known Drug Allergies Allergy Verified 06/28/17 07:43 - Past Medical History Past Medical History: Yes Neurological History: Peripheral Neuropathy ENT History: No Pertinent History Cardiac History: High Cholesterol, Hypertension, Other Respiratory History: COPD Endocrine Medical History: No Pertinent History Musculoskelatal History: Other GI Medical History: GERD, Gallbladder Disease History: No Pertinent History Pyscho-Social History: Depression Reproductive Disorders: Fibroids Comment: RESTLESS LEG SYNDROME, - Female History Hx Last Menstrual Period: post Are you now?: No - Past Surgical History Past Surgical History: Yes Neuro Surgical History: No Pertinent History Cardiac History: Cardiac Catheterization, Cardiac Stent Respiratory Surgery: No Pertinent History GI Surgical History: Cholecystectomy Genitourinary Surgical Hx: No Pertinent History Musculskeletal Surgical Hx: Orthopedic Surgery Female Surgical History: Hysterectomy Other Surgical History: left knee scope. toe nail removel. shoulder surgery. thumb surgery - Social History Smoking Status: Current every day smoker How long have you smoked: years Exposure to second hand smoke: Yes Alcohol: None Drug Use: none - Physical Exam Vital Signs: Vital Signs - 24 hr Temp Pulse Resp BP Pulse Ox 06/21/18 08:00 20 06/21/18 07:32 98.4 F 87 18 126/58 93 L 06/21/18 07:28 95 H 18 96 06/21/18 07:21 92 L 06/21/18 04:00 98 F 86 18 110/60 94 L 06/21/18 00:15 98.5 F 92 H 24 124/58 93 L 06/20/18 22:09 88 21 91 L 06/20/18 20:11 98.3 F 110 H 18 124/56 97 06/20/18 17:40 98.3 F 90 20 119/59 90 L 12/09/18 17:33 98.3 F 90 20 119/59 93 L 06/20/18 17:25 86 20 95 06/20/18 17:03 90 20 131/84 94 L 06/20/18 16:05 92 H 20 106/64 94 L 06/20/18 15:15 90 22 111/71 95 06/20/18 14:46 98.1 F 90 18 139/56 98 06/20/18 13:53 86 20 94 L 06/20/18 13:39 94 H 24 107/57 95 06/20/18 13:10 84 20 97 06/20/18 13:01 96 H 22 107/61 94 L 06/20/18 12:46 92 L 06/20/18 12:31 98.1 F 102 H 22 136/72 92 L Oxygen-Last 24 hours O2 Percentage 2 Liters = 28% O2 Percentage 3 Liters = 32% O2 Percentage 3 Liters = 32% O2 Percentage 2 Liters = 28% O2 Percentage 2 Liters = 28% O2 Percentage 2 Liters = 28% O2 Percentage 2 Liters = 28% O2 Percentage 2 Liters = 28% O2 Percentage 2 Liters = 28% O2 Percentage 2 Liters = 28% O2 Percentage 2 Liters = 28% General Appearance: no apparent distress, alert Neurologic Exam: oriented x 3, cooperative Eye Exam: eyes nml inspection Ears, Nose, Throat Exam: moist mucous membranes Neck Exam: normal inspection, non-tender, No lymphadenopathy Respiratory Exam: lungs clear, diminished breath sounds (fair to good air exchange), wheezing (faint scattered), No crackles/rales, No rhonchi Cardiovascular Exam: regular rate/rhythm, normal heart sounds, No murmur Gastrointestinal/Abdomen Exam: soft, normal bowel sounds, No tenderness, No distention, No mass, No guarding, No rebound Back Exam: No CVA tenderness Extremity Exam: normal inspection, No pedal edema, No swelling Skin Exam: normal color, warm, dry, No rash Results - Labs Lab/Micro Results: Lab Results-Last 24 Hours 06/20/18 06/20/18 06/20/18 Range/Units 12:38 12:45 12:45 WBC (4.0-10.5) K/mm3 RBC (4.1-5.4) M/mm3 Hgb (12.0-16.0) gm/dl Hct (35-47) % MCV (78-100) fl MCH (26-32) pg MCHC (32-36) g/dl RDW (11.5-14.0) % Plt Count (150-450) K/mm3 MPV (6-9.5) fl Gran % (36.0-66.0) % Eos # (Auto) (0-0.5) Absolute Lymphs (auto) (1.0-4.6) Absolute Monos (auto) (0.0-1.3) Lymphocytes % (24.0-44.0) % Monocytes % (0.0-12.0) % Eosinophils % (0.00-5.0) % Basophils % (0.0-0.4) % Absolute Granulocytes (1.4-6.9) Basophils # (0-0.4) PT 12.8 H (9.95-12.35) SECONDS INR 1.10 (0.8-3.0) APTT 31.1 (25.3-37.0) SECONDS D-Dimer 809 H* (215-500) ng/mL pO2/FiO2 Ratio 28.0 % VBG pH 7.41 (7.32-7.42) VBG pCO2 at Pat Temp 43 (42-55) mm/Hg VBG pO2 at Pat Temp 18 L (25-40) mm/Hg VBG HCO3 27.3 (22-28) meq/L VBG O2 Sat (Josefina) 40.4 L (95-100) VBG Base Excess 2.2 H (-2.0-2.0) VBG Hemoglobin 14.5 VBG Carboxyhemoglobin 1.9 (0.0-6.9) % T HGB POC Potassium [employer] Sodium 135 L (137-145) mmol/L Potassium 3.8 (3.5-5.1) mmol/L Chloride 100 (98-107) mmol/L Carbon Dioxide 27 (22-30) mmol/L Anion Gap 11.7 (5-15) MEQ/L BUN 17 (7-17) mg/dL Creatinine 0.87 (0.52-1.04) mg/dL Estimated GFR > 60.0 ML/MIN Glucose 112 H (74-106) mg/dL Calcium 9.1 (8.4-10.2) mg/dL Total Bilirubin 0.90 (0.2-1.3) mg/dL AST 16 (14-36) U/L ALT 15 (0-35) U/L Alkaline Phosphatase 113 (38-126) U/L Troponin I (0.000-0.034) ng/mL NT-Pro-B Natriuret Pep 123 (0-900) pg/mL Serum Total Protein 7.3 (6.3-8.2) g/dL Albumin 4.3 (3.5-5.0) g/dL 06/20/18 06/20/18 06/20/18 Range/Units 13:10 13:15 15:45 WBC 10.6 H (4.0-10.5) K/mm3 RBC 4.29 (4.1-5.4) M/mm3 Hgb 14.7 (12.0-16.0) gm/dl Hct 44.8 (35-47) % MCV 104.4 H (78-100) fl MCH 34.3 H (26-32) pg MCHC 32.8 (32-36) g/dl RDW 12.2 (11.5-14.0) % Plt Count 183 (150-450) K/mm3 MPV 10.2 H (6-9.5) fl Gran % 69.7 H (36.0-66.0) % Eos # (Auto) 0.02 (0-0.5) Absolute Lymphs (auto) 1.98 (1.0-4.6) Absolute Monos (auto) 1.18 (0.0-1.3) Lymphocytes % 18.8 L (24.0-44.0) % Monocytes % 11.2 (0.0-12.0) % Eosinophils % 0.2 (0.00-5.0) % Basophils % 0.1 (0.0-0.4) % Absolute Granulocytes 7.36 H (1.4-6.9) Basophils # 0.01 (0-0.4) PT (9.95-12.35) SECONDS INR (0.8-3.0) APTT (25.3-37.0) SECONDS D-Dimer (215-500) ng/mL pO2/FiO2 Ratio % VBG pH (7.32-7.42) VBG pCO2 at Pat Temp (42-55) mm/Hg VBG pO2 at Pat Temp (25-40) mm/Hg VBG HCO3 (22-28) meq/L VBG O2 Sat (Josefina) (95-100) VBG Base Excess (-2.0-2.0) VBG Hemoglobin VBG Carboxyhemoglobin (0.0-6.9) % T HGB POC Potassium Sodium (137-145) mmol/L Potassium (3.5-5.1) mmol/L Chloride (98-107) mmol/L Carbon Dioxide (22-30) mmol/L Anion Gap (5-15) MEQ/L BUN (7-17) mg/dL Creatinine (0.52-1.04) mg/dL Estimated GFR ML/MIN Glucose (74-106) mg/dL Calcium (8.4-10.2) mg/dL Total Bilirubin (0.2-1.3) mg/dL AST (14-36) U/L ALT (0-35) U/L Alkaline Phosphatase (38-126) U/L Troponin I < 0.012 < 0.012 (0.000-0.034) ng/mL NT-Pro-B Natriuret Pep (0-900) pg/mL Serum Total Protein (6.3-8.2) g/dL Albumin (3.5-5.0) g/dL 06/20/18 06/20/18 06/21/18 Range/Units 18:45 21:45 00:45 WBC (4.0-10.5) K/mm3 RBC (4.1-5.4) M/mm3 Hgb (12.0-16.0) gm/dl Hct (35-47) % MCV (78-100) fl MCH (26-32) pg MCHC (32-36) g/dl RDW (11.5-14.0) % Plt Count (150-450) K/mm3 MPV (6-9.5) fl Gran % (36.0-66.0) % Eos # (Auto) (0-0.5) Absolute Lymphs (auto) (1.0-4.6) Absolute Monos (auto) (0.0-1.3) Lymphocytes % (24.0-44.0) % Monocytes % (0.0-12.0) % Eosinophils % (0.00-5.0) % Basophils % (0.0-0.4) % Absolute Granulocytes (1.4-6.9) Basophils # (0-0.4) PT (9.95-12.35) SECONDS INR (0.8-3.0) APTT (25.3-37.0) SECONDS D-Dimer (215-500) ng/mL pO2/FiO2 Ratio % VBG pH (7.32-7.42) VBG pCO2 at Pat Temp (42-55) mm/Hg VBG pO2 at Pat Temp (25-40) mm/Hg VBG HCO3 (22-28) meq/L VBG O2 Sat (Josefina) (95-100) VBG Base Excess (-2.0-2.0) VBG Hemoglobin VBG Carboxyhemoglobin (0.0-6.9) % T HGB POC Potassium Sodium (137-145) mmol/L Potassium (3.5-5.1) mmol/L Chloride (98-107) mmol/L Carbon Dioxide (22-30) mmol/L Anion Gap (5-15) MEQ/L BUN (7-17) mg/dL Creatinine (0.52-1.04) mg/dL Estimated GFR ML/MIN Glucose (74-106) mg/dL Calcium (8.4-10.2) mg/dL Total Bilirubin (0.2-1.3) mg/dL AST (14-36) U/L ALT (0-35) U/L Alkaline Phosphatase (38-126) U/L Troponin I < 0.012 < 0.012 < 0.012 (0.000-0.034) ng/mL NT-Pro-B Natriuret Pep (0-900) pg/mL Serum Total Protein (6.3-8.2) g/dL Albumin (3.5-5.0) g/dL 06/21/18 06/21/18 Range/Units 05:30 05:30 WBC 9.7 (4.0-10.5) K/mm3 RBC 3.93 L (4.1-5.4) M/mm3 Hgb 13.4 (12.0-16.0) gm/dl Hct 40.4 (35-47) % MCV 102.8 H (78-100) fl MCH 34.0 H (26-32) pg MCHC 33.2 (32-36) g/dl RDW 11.8 (11.5-14.0) % Plt Count 173 (150-450) K/mm3 MPV 9.9 H (6-9.5) fl Gran % 86.2 H (36.0-66.0) % Eos # (Auto) 0 (0-0.5) Absolute Lymphs (auto) 0.97 L (1.0-4.6) Absolute Monos (auto) 0.36 (0.0-1.3) Lymphocytes % 10.0 L (24.0-44.0) % Monocytes % 3.7 (0.0-12.0) % Eosinophils % 0.0 (0.00-5.0) % Basophils % 0.1 (0.0-0.4) % Absolute Granulocytes 8.33 H (1.4-6.9) Basophils # 0.01 (0-0.4) PT (9.95-12.35) SECONDS INR (0.8-3.0) APTT (25.3-37.0) SECONDS D-Dimer (215-500) ng/mL pO2/FiO2 Ratio % VBG pH (7.32-7.42) VBG pCO2 at Pat Temp (42-55) mm/Hg VBG pO2 at Pat Temp (25-40) mm/Hg VBG HCO3 (22-28) meq/L VBG O2 Sat (Josefina) (95-100) VBG Base Excess (-2.0-2.0) VBG Hemoglobin VBG Carboxyhemoglobin (0.0-6.9) % T HGB POC Potassium Sodium 137 (137-145) mmol/L Potassium 4.1 (3.5-5.1) mmol/L Chloride 104 (98-107) mmol/L Carbon Dioxide 25 (22-30) mmol/L Anion Gap 12.4 (5-15) MEQ/L BUN 19 H (7-17) mg/dL Creatinine 0.76 (0.52-1.04) mg/dL Estimated GFR > 60.0 ML/MIN Glucose 134 H (74-106) mg/dL Calcium 8.9 (8.4-10.2) mg/dL Total Bilirubin 0.40 (0.2-1.3) mg/dL AST 15 (14-36) U/L ALT 16 (0-35) U/L Alkaline Phosphatase 100 (38-126) U/L Troponin I (0.000-0.034) ng/mL NT-Pro-B Natriuret Pep (0-900) pg/mL Serum Total Protein 6.8 (6.3-8.2) g/dL Albumin 3.8 (3.5-5.0) g/dL - Radiology Impressions Radiology Exams & Impressions: Radiology Procedures Category Date Time Status CHEST 1 VIEW (PORTABLE) Stat Exams 06/20/18 12:38 Completed CHEST WITH CONTRAST [CT] Stat Exams 06/20/18 14:00 Completed - Other Procedures and Tests Respiratory Therapy 06/20/18 17:20 Oxygen NASAL CANNULA 2 lpm 06/20/18 17:22 Peak Expiratory Flow Rate ONCE Respiratory Therapy Assessment DAILY Assessment/Plan (1) COPD exacerbation Current Visit: Yes Status: Acute Assessment & Plan: Doing better. Advised she will likely need a couple of days in the hospital to treat. Currently on 2L O2 per NC. She is not on O2 at home. However should she go off O2 this afternoon and be off all night, feeling great in the morning , I would not be opposed to discharge but I anticipate she will be here several days. Code(s): J44.1 - CHRONIC OBSTRUCTIVE PULMONARY DISEASE W (ACUTE) EXACERBATION (2) Chest pain Current Visit: Yes Status: Resolved Assessment & Plan: KS ruled out Code(s): R07.9 - CHEST PAIN, UNSPECIFIED
[2018-06-21] MEDS: Coreg 6.25 MG PO SCH ×2 (09:48→20:48)
[2018-06-21] MEDS: Ranexa 500 MG PO SCH ×2 (09:48→20:48)
[2018-06-21] MEDS: Neurontin 400 MG PO SCH ×3 (09:48→20:48)
[2018-06-21] MEDS: ROCEPHIN 1 Gm-D5w 50 ml Bag** 1 G/50 ML IVPB IV SCH (09:49)
[2018-06-21] MEDS ORDERED: Zithromax 500 MG/ 250 ML NaCl Premix 500 MG/250 ML IVPB IV SCH (10:00)
[2018-06-21] MEDS: Zithromax 500 MG/ 250 ML NaCl Premix 500 MG/250 ML IVPB IV SCH (18:31)
[2018-06-21] MEDS: ENOXAPARIN SODIUM SQ SCH (20:43)
[2018-06-21] MEDS: REQUIP 2MG TAB PO SCH (20:46)
[2018-06-21] MEDS: Effexor XR 75 MG PO SCH (20:46)
[2018-06-21] MEDS: ZOCOR 20MG PO SCH (20:47)
[2018-06-21] MEDS: Imdur 60MG PO SCH (20:47)
[2018-06-21] MEDS: PLAVIX 75 MG Tablet PO SCH (20:48)
[2018-06-21] MEDS: NORVASC 5 MG PO SCH (20:49)
[2018-06-22] MEDS: solu-MEDROL 125 MG IV SCH ×4 (01:55→20:52)
[2018-06-22] MEDS: DUONEB 0.5-3 MG/3 ml Neb IH SCH ×4 (07:09→19:34)
[2018-06-22] MEDS: Neurontin 400 MG PO SCH ×3 (09:50→20:53)
[2018-06-22] MEDS: Coreg 6.25 MG PO SCH ×2 (09:50→20:53)
[2018-06-22] MEDS: ROCEPHIN 1 Gm-D5w 50 ml Bag** 1 G/50 ML IVPB IV SCH (09:50)
[2018-06-22] MEDS: Ranexa 500 MG PO SCH ×2 (09:50→20:53)
--- NOTE | 2018-06-22 16:06 | PCM.NOTE ---
Date and Time: 06/22/18 1604 Subjective Assessment: Pt's O2 decreased into the 80s when up walking to the restroom. Still on 2L O2 per NC. - Review of Systems Constitutional: No Fever Respiratory: Cough, Short Of Breath Objective Exam General Appearance: no apparent distress, alert Neurologic Exam: oriented x 3, cooperative Skin Exam: normal color, warm, dry, No rash Respiratory Exam: diminished breath sounds (fair to good air exchange), wheezing (faint scattered exp wheezes), No crackles/rales, No rhonchi Cardiovascular Exam: regular rate/rhythm, normal heart sounds, No murmur Gastrointestinal/Abdomen Exam: soft, normal bowel sounds, No tenderness OBJECTIVE DATA Vital Signs: Vital Signs - 24 hr Temp Pulse Resp BP Pulse Ox 06/22/18 15:20 74 16 94 L 06/22/18 12:00 20 06/22/18 11:06 98.2 F 86 20 114/52 94 L 06/22/18 10:54 86 16 96 06/22/18 08:00 16 06/22/18 07:11 88 16 93 L 06/22/18 07:06 98.1 F 85 20 108/58 92 L 06/22/18 04:41 98.4 F 92 H 16 105/57 90 L 06/22/18 00:00 18 06/21/18 21:27 92 H 18 94 L 06/21/18 20:00 22 06/21/18 19:32 98.3 F 90 22 114/54 92 L Oxygen-Last 24 hours O2 Percentage 2 Liters = 28% O2 Percentage 2 Liters = 28% O2 Percentage 2 Liters = 28% O2 Percentage 3 Liters = 32% Pain Assessment - Last Documented Pain Intensity 0 Pain Scale Used 0-10 Pain Scale Intake and Output: Intake & Output 06/20/18 06/21/18 06/22/18 06/23/18 11:59 11:59 11:59 11:59 Intake Total 1522 1560 240 Output Total 300 850 550 Balance 1222 710 -310 Weight 60.3 kg 63.8 kg Multi-Disciplinary Progress Notes: Multi-Disciplinary Progress Notes 06/22/18 13:52 Case Management Note by Xochitl Mcclendon S/W PATIENT ABOUT ANY NEW NEEDS THAT SHE MIGHT HAVE AT D/C. PT DENIED NEED FOR ANY COMMUNITY SERVICES AT THIS TIME. SHE IS ABLE TO PERFORM ADL'S INDEPENDENTLY. WILL CONT. TO FOLLOW DURING THIS STAY TO ASSESS FOR ANY NEEDS AT D/C. Initialized on 06/22/18 13:52 - END OF NOTE Assessment/Plan (1) COPD exacerbation Current Visit: Yes Status: Acute Onset Date: ~06/20/18 Assessment & Plan: sounds better today. Will start decreasing steroids in the afternoon. Will need at least another day. May end up going home on oxygen. Code(s): J44.1 - CHRONIC OBSTRUCTIVE PULMONARY DISEASE W (ACUTE) EXACERBATION (2) Chest pain Current Visit: Yes Status: Resolved Onset Date: ~06/20/18 Assessment & Plan: CO ruled out. Code(s): R07.9 - CHEST PAIN, UNSPECIFIED
[2018-06-22] MEDS: Zithromax 500 MG/ 250 ML NaCl Premix 500 MG/250 ML IVPB IV SCH (19:40)
[2018-06-22] MEDS: ENOXAPARIN SODIUM SQ SCH (20:52)
[2018-06-22] MEDS: PLAVIX 75 MG Tablet PO SCH (20:52)
[2018-06-22] MEDS: ZOCOR 20MG PO SCH (20:53)
[2018-06-22] MEDS: Imdur 60MG PO SCH (20:53)
[2018-06-22] MEDS: NORVASC 5 MG PO SCH (20:53)
[2018-06-22] MEDS: REQUIP 2MG TAB PO SCH (20:53)
[2018-06-22] MEDS: Effexor XR 75 MG PO SCH (20:54)
[2018-06-23] MEDS: solu-MEDROL 125 MG IV SCH (05:45)
[2018-06-23] MEDS: DUONEB 0.5-3 MG/3 ml Neb IH SCH ×4 (07:14→19:12)
--- NOTE | 2018-06-23 08:58 | PCM.NOTE ---
Date and Time: 06/23/18856 Subjective Assessment: Feeling somewhat better, still lots of cough and SOB. Angel po. - Review of Systems Constitutional: No Fever Respiratory: Cough, Short Of Breath Objective Exam General Appearance: no apparent distress, alert Neurologic Exam: oriented x 3, cooperative Skin Exam: normal color, warm, dry, No rash Respiratory Exam: diminished breath sounds, prolonged expirations, No crackles/ rales, No rhonchi, No wheezing Cardiovascular Exam: regular rate/rhythm, normal heart sounds, No murmur Extremity Exam: normal inspection, No pedal edema, No swelling OBJECTIVE DATA Vital Signs: Vital Signs - 24 hr Temp Pulse Resp BP Pulse Ox 06/23/18 08:00 18 06/23/18 07:31 98 F 89 18 124/62 93 L 06/23/18 07:17 94 H 22 93 L 06/23/18 04:00 98.3 F 86 20 114/59 96 06/23/18 00:25 98.5 F 87 20 99/50 95 06/23/18 00:00 20 06/22/18 20:00 22 06/22/18 19:35 88 22 94 L 06/22/18 19:32 97.6 F 91 H 22 127/60 90 L 06/22/18 16:00 16 06/22/18 15:20 74 16 94 L 06/22/18 12:00 20 06/22/18 11:06 98.2 F 86 20 114/52 94 L 06/22/18 10:54 86 16 96 Oxygen-Last 24 hours O2 Percentage 2 Liters = 28% O2 Percentage 2 Liters = 28% O2 Percentage 2 Liters = 28% O2 Percentage 2 Liters = 28% Pain Assessment - Last Documented Pain Intensity 0 Pain Scale Used 0-10 Pain Scale Intake and Output: Intake & Output 06/20/18 06/21/18 06/22/18 06/23/18 11:59 11:59 11:59 11:59 Intake Total 1522 1560 1951 Output Total 039 318 8500 Balance 1222 710 401 Weight 60.3 kg 63.8 kg 63.1 kg Multi-Disciplinary Progress Notes: Multi-Disciplinary Progress Notes 06/22/18 13:52 Case Management Note by Xochitl Mcclendon S/W PATIENT ABOUT ANY NEW NEEDS THAT SHE MIGHT HAVE AT D/C. PT DENIED NEED FOR ANY COMMUNITY SERVICES AT THIS TIME. SHE IS ABLE TO PERFORM ADL'S INDEPENDENTLY. WILL CONT. TO FOLLOW DURING THIS STAY TO ASSESS FOR ANY NEEDS AT D/C. Initialized on 06/22/18 13:52 - END OF NOTE Assessment/Plan (1) COPD exacerbation Current Visit: Yes Status: Acute Onset Date: ~06/20/18 Assessment & Plan: Doing better. Will decrease steroid more and likely d/c home tomorrow - will probably need home O2. Code(s): J44.1 - CHRONIC OBSTRUCTIVE PULMONARY DISEASE W (ACUTE) EXACERBATION (2) Chest pain Current Visit: Yes Status: Resolved Onset Date: ~06/20/18 Code(s): R07.9 - CHEST PAIN, UNSPECIFIED
[2018-06-23] MEDS: ROCEPHIN 1 Gm-D5w 50 ml Bag** 1 G/50 ML IVPB IV SCH (09:40)
[2018-06-23] MEDS: Neurontin 400 MG PO SCH ×3 (09:40→21:04)
[2018-06-23] MEDS: Ranexa 500 MG PO SCH ×2 (09:40→21:04)
[2018-06-23] MEDS: Coreg 6.25 MG PO SCH ×2 (09:40→21:03)
[2018-06-23] MEDS: Zithromax 500 MG/ 250 ML NaCl Premix 500 MG/250 ML IVPB IV SCH (18:38)
[2018-06-23] MEDS: Imdur 60MG PO SCH (21:03)
[2018-06-23] MEDS: Effexor XR 75 MG PO SCH (21:03)
[2018-06-23] MEDS: ENOXAPARIN SODIUM SQ SCH (21:03)
[2018-06-23] MEDS: REQUIP 2MG TAB PO SCH (21:04)
[2018-06-23] MEDS: PLAVIX 75 MG Tablet PO SCH (21:04)
[2018-06-23] MEDS: NORVASC 5 MG PO SCH (21:04)
[2018-06-23] MEDS: solu-MEDROL 40 MG IV SCH (21:05)
[2018-06-23] MEDS: ZOCOR 20MG PO SCH (21:05)
[2018-06-24] MEDS: DUONEB 0.5-3 MG/3 ml Neb IH SCH (07:04)
[2018-06-24 07:34] VITALS: BP 127/60; PULSE 91; O2SAT 95
--- NOTE | 2018-06-24 08:43 | PCM.DS ---
Discharge Summary Date of Admission: 06/21/18 09:07 Admitting Physician: JONNY ROSS Primary Care Provider: JASVIR OLSON Allergies Allergies No Known Drug Allergies Allergy (Verified 06/28/17 07:43) Hospital Summary - Hospital Course Hospital Course: Pt is 62 yo female pt of Jasvir Olson who was admitted through ER with COPD exacerbation. CXR with R basilar infiltrate v atelectasis; CT chest neg for PE , + for bilat basilar/lingular infiltrates. She has been on rocephin and zitrhomax IV with IV solumedrol. She has been on 2L NC throughout her stay - not on O2 at home. This morning her O2 is off and she is breathing "fine." She did wear O2 all night. Initially she would desaturate into the 80s with any exertion, despite the O2, so she will be evaluated for her need for O2 this morning and sent home on oxygen as appropriate. Also home on augmentin for 10 more days and prednisone x 7d. - Vitals & Intake/Output Vital Signs: Vital Signs Temperature 98.1 F 06/24/18 07:33 Pulse Rate 91 H 06/24/18 07:33 Respiratory Rate 20 06/24/18 07:33 Blood Pressure 127/60 06/24/18 07:33 O2 Sat by Pulse Oximetry 95 06/24/18 07:33 Oxygen-Last Documented O2 Percentage 2 Liters = 28% Intake & Output: Intake & Output 06/21/18 06/22/18 06/23/18 06/24/18 11:59 11:59 11:59 11:59 Intake Total 1522 1560 1951 1740 Output Total 415 093 0853 900 Balance 1222 710 401 840 Weight 60.3 kg 63.8 kg 63.1 kg 64.5 kg - Lab Result Diagrams: 06/21/18 05:30 06/21/18 05:30 Micro Results-Entire Visit: Microbiology 06/20/18 13:10 Blood Culture - Preliminary Blood NO GROWTH TO DATE 06/20/18 12:45 Blood Culture - Preliminary Blood NO GROWTH TO DATE - Procedures and Test Procedures and Tests throughout Hospitalization: Therapy Orders & Screens 06/20/18 12:39 Respiratory Nebulizer STAT Comment: Diagnosis: Shortness of Breath 06/20/18 12:51 Respiratory Nebulizer STAT Comment: Diagnosis: Shortness of Breath 06/20/18 13:09 Respiratory Therapy Assessment DAILY Comment: Diagnosis: Shortness of Breath 06/20/18 13:45 Respiratory Nebulizer STAT Comment: Diagnosis: Shortness of Breath 06/20/18 13:51 Respiratory Therapy Assessment DAILY Comment: Diagnosis: Shortness of Breath 06/20/18 17:20 Oxygen NASAL CANNULA 2 lpm Comment: Diagnosis: Shortness of Breath Respiratory Therapy Consult ROUTINE Comment: Reason For Exam: Diagnosis: Shortness of Breath 06/20/18 17:22 Peak Expiratory Flow Rate ONCE Comment: Reason For Exam: Diagnosis: Shortness of Breath Respiratory Therapy Assessment DAILY Comment: Diagnosis: Shortness of Breath 06/20/18 18:27 RT Screen per Nursing Assess ONCE Comment: Protocol Order Physician Instructions: Greater than 3 points order RT Admission Screen Reason For Exam: Triggered on Admission Diagnosis: Shortness of Breath Diagnosis: Shortness of Breath Pneumonia: No Home O2: No Asthma: No CHF: Yes Home CPAP/BIPAP: No Home Nebs/MDI: Yes Total Points: 8 Smoking Cessation Education ONCE Comment: Diagnosis: Shortness of Breath Smoking Status: Current every day smoker How long have you smoked: "30 years" Have you smoked in the past 12 months: Yes Approximately how many cigarettes per day: 10 Do you dip or chew tobacco: No 06/23/18 08:08 Flutter Therapy UD Comment: Diagnosis: EXACERBATION COPD, RLL INFILTRATE, SOB Discharge Exam General Appearance: no apparent distress (sitting up in the chair), alert Neurologic Exam: oriented x 3, cooperative Skin Exam: normal color, warm, dry, No rash Ears, Nose, Throat Exam: moist mucous membranes Respiratory Exam: lungs clear, diminished breath sounds, wheezing (occ exp wheeze), No crackles/rales, No rhonchi Cardiovascular Exam: regular rate/rhythm, normal heart sounds, No murmur Extremity Exam: normal inspection, No pedal edema, No swelling Final Diagnosis/Problem List - Final Discharge Diagnosis/Problem (1) COPD exacerbation Current Visit: Yes Status: Acute Onset Date: ~06/20/18 Assessment & Plan: Doing much better this morning. home on augmentin, prednisone, and o2 as appropriate. (2) Chest pain Current Visit: Yes Status: Resolved Onset Date: ~06/20/18 - Discharge Disposition: Home, Self-Care Condition: Good Prescriptions: New Amoxicillin/Potassium Clav [Augmentin 875-125 Tablet] 875 mg PO BID #20 tablet Prednisone 20 mg [Deltasone 20 mg] 20 mg PO DAILY #17 tablet Continue Clopidogrel Bisulfate [Plavix] 75 mg PO HS Ropinirole HCl 4 mg PO HS Amlodipine Besylate 5 mg [Norvasc 5 mg] 5 mg PO HS Isosorbide Mononitrate 30 mg [Imdur 30 MG] 60 mg PO HS Carvedilol 6.25 mg [Coreg 6.25 MG] 6.25 mg PO BID Atorvastatin Calcium [Lipitor 40Mg] 40 mg PO HS Ranolazine 500 MG [Ranexa 500 MG] 500 mg PO BID Venlafaxine HCl ER 75 mg [Effexor XR 75 MG] 75 mg PO HS Nitroglycerin 0.4 mg Tablet [Nitrostat 0.4 MG Tablet] 0.4 mg SL Q5MIN PRN MR X 3 PRN PRN Reason: Chest Pain Albuterol Sulfate [Proair Hfa] 8.5 gm IH DAILY Gabapentin 800 mg PO TID Follow up with: JASVIR OLSON [Primary Care Provider] - 1 Week
[2018-06-24] MEDS: ROCEPHIN 1 Gm-D5w 50 ml Bag** 1 G/50 ML IVPB IV SCH (09:19)
[2018-06-24] MEDS: solu-MEDROL 40 MG IV SCH (09:19)
[2018-06-24] MEDS: Neurontin 400 MG PO SCH (09:19)
[2018-06-24] MEDS: Ranexa 500 MG PO SCH (09:20)
[2018-06-24] MEDS: Coreg 6.25 MG PO SCH (09:20)
[2018-06-28 16:36] LABS: VBG PO2 18 mm/Hg (25-40)
== END 2018-06-24 11:14 | disposition home or self-care (01) | DRG 192 ==
LOC: ED 12:30 → MED SURG 17:14 → OBSVTOIN 06-21 09:07
PROVIDERS: ADMIT Internal Medicine; ATTEND Family Medicine
DX: R06.02 Shortness of breath (principal); J44.1 Chronic obstructive pulmonary disease with (acute) exacerbation; I25.10 Atherosclerotic heart disease of native coronary artery without angina pectoris; G62.9 Polyneuropathy, unspecified; E78.00 Pure hypercholesterolemia, unspecified; I10 Essential (primary) hypertension; K21.9 Gastro-esophageal reflux disease without esophagitis; K82.9 Disease of gallbladder, unspecified; F32.9 Major depressive disorder, single episode, unspecified; Z72.0 Tobacco use; R07.9 Chest pain, unspecified; Z79.899 Other long term (current) drug therapy
CPT/HCPCS: 36000; 36415; 71045; 71260; 80053; 82805; 83880; 84484; 85025; 85379; 85610; 85730; 87040; 93005; 93041; 93268; 94150; 94640; 94667; 94760; 94762; 96374; 96375; 99285; G0378; J0456; J0696; J1650; J2405; J2920; J2930; J7609; Q3014; A9270-GY

== ENCOUNTER 2018-07-08 12:21 | Emergency (ER) | payer MEDICARE ==
--- NOTE | 2018-07-08 13:48 | ERPHSYRPT ---
- History of Present Illness Time Seen by Provider: 07/08/18 13:40 Source: patient, family Patient Subjective Stated Complaint: FELL LAST THURSDAY AND INJURED LEFT HAND AND LEFT UPPER ARM Triage Nursing Assessment: AMBULATED TO ROOM PER SELF. SKIN W/D, COLOR NORMAL. MODERATE SWELLING NOTED TO LEFT HAND. LIMITED ROM TO FINGERS. BRUISING NOTED TO LEFT UPPER ARM. DOES HAVE FULL ROM TO L ARM. GOOD RADIAL PULSE. Physician History: 62 y/o right handed white female presents to ED 3 days after a fall onto left upper ext. pt has bruising and pain left upper arm, left hand and left wrist. denies head injury.pt drove herself here Occurred: days ago (3) Method of Injury: fell Quality: intermittent, aching Severity of Pain-Max: moderate Severity of Pain-Current: moderate Extremities Pain Location: arm: left, wrist: left, hand: left, 3rd finger: left Modifying Factors: Improves With: movement Associated Symptoms: none Allergies/Adverse Reactions: No Known Drug Allergies Allergy (Verified 06/28/17 07:43) Home Medications: Clopidogrel Bisulfate [Plavix] 75 mg PO HS 04/09/12 [History] Amlodipine Besylate 5 mg [Norvasc 5 mg] 5 mg PO HS 01/28/15 [History] Ropinirole HCl 4 mg PO HS 01/28/15 [History] Atorvastatin Calcium [Lipitor 40Mg] 40 mg PO HS 06/28/17 [History] Carvedilol 6.25 mg [Coreg 6.25 MG] 6.25 mg PO BID 06/28/17 [History] Isosorbide Mononitrate 30 mg [Imdur 30 MG] 60 mg PO HS 06/28/17 [History] Albuterol Sulfate [Proair Hfa] 8.5 gm IH DAILY 06/20/18 [History] Gabapentin 800 mg PO TID 06/20/18 [History] Nitroglycerin 0.4 mg Tablet [Nitrostat 0.4 MG Tablet] 0.4 mg SL Q5MIN PRN MR X 3 PRN 06/20/18 [History] Ranolazine 500 MG [Ranexa 500 MG] 500 mg PO BID 06/20/18 [History] Venlafaxine HCl ER 75 mg [Effexor XR 75 MG] 75 mg PO HS 06/20/18 [History] Hx Tetanus, Diphtheria Vaccination/Date Given: Yes Hx Influenza Vaccination/Date Given: No Hx Pneumococcal Vaccination/Date Given: No - Review of Systems Constitutional: No Symptoms Eyes: No Symptoms Ears, Nose, & Throat: No Symptoms Respiratory: No Symptoms Cardiac: No Symptoms Abdominal/Gastrointestinal: No Symptoms Genitourinary Symptoms: No Symptoms Musculoskeletal: Fall, Injury (left hand and left wrist and arm) Neurological: No Symptoms Psychological: No Symptoms Endocrine: No Symptoms Hematologic/Lymphatic: No Symptoms Immunological/Allergic: No Symptoms All Other Systems: Reviewed and Negative - Past Medical History Pertinent Past Medical History: Yes Neurological History: Peripheral Neuropathy ENT History: No Pertinent History Cardiac History: High Cholesterol, Hypertension, Other Respiratory History: COPD Endocrine Medical History: No Pertinent History Musculoskeletal History: Other GI Medical History: GERD, Gallbladder Disease History: No Pertinent History Psycho-Social History: Depression Female Reproductive Disorders: Fibroids Other Medical History: RESTLESS LEG SYNDROME, - Past Surgical History Past Surgical History: Yes Neuro Surgical History: No Pertinent History Cardiac: Cardiac Catheterization, Cardiac Stent Respiratory: No Pertinent History Gastrointestinal: Cholecystectomy Genitourinary: No Pertinent History Musculoskeletal: Orthopedic Surgery Female Surgical History: Hysterectomy Other Surgical History: left knee scope. toe nail removel. shoulder surgery. thumb surgery - Social History Smoking Status: Current every day smoker How long have you smoked: 30 Exposure to second hand smoke: No Drug Use: none Patient Lives Alone: Yes - Female History Hx Now: No - Nursing Vital Signs Nursing Vital Signs: Initial Vital Signs Temperature 97.9 F 07/08/18 13:28 Pulse Rate 79 07/08/18 13:28 Respiratory Rate 16 07/08/18 13:28 Blood Pressure 138/79 07/08/18 13:28 O2 Sat by Pulse Oximetry 97 07/08/18 13:28 Pain Scale Pain Intensity 9 - Physical Exam General Appearance: mild distress, alert, anxiety Eyes, Ears, Nose, Throat Exam: normal ENT inspection, moist mucous membranes Neck Exam: normal inspection, non-tender, supple, full range of motion Cardiovascular/Respiratory Exam: chest non-tender Abdominal Exam: non-tender, No guarding, No tenderness Back Exam: normal inspection, normal range of motion, No CVA tenderness, No vertebral tenderness Shoulder Exam: normal inspection, non-tender, no evidence of injury, normal ROM Elbow/Forearm Exam: normal inspection, non-tender, no evidence of injury, normal ROM Wrist Exam: normal inspection, normal ROM, bone tenderness, soft tissue tenderness Hand Exam: bone tenderness, ecchymosis, soft tissue tenderness, swelling Neuro/Tendon Exam: normal sensation, normal tendon functions, no evidence tendon injury Mental Status Exam: alert, oriented x 3, cooperative Skin Exam: warm, ecchymosis (see above) SpO2 Interpretation: normal SpO2: 97 Oxygen Delivery: Room Air - Course Nursing assessment & vital signs reviewed: Yes Ordered Tests: Active Orders 24 hr Category Date Time Status HAND (MINIMUM 3 VIEWS) Stat Exams 07/08/18 13:49 Completed HUMERUS Stat Exams 07/08/18 13:49 Completed WRIST (MIN 3 VIEWS) Stat Exams 07/08/18 13:49 Completed - Progress Progress: pain not gone completely, re-examined Progress Note: 07/08/18 14:45 xrays of left hand, wrist and humerus-no acute fx or dislocation Counseled pt/family regarding: diagnosis, need for follow-up, rad results - Departure Time of Disposition: 14:46 Departure Disposition: Home Clinical Impression: Contusion Condition: Stable Critical Care Time: No Referrals: JASVIR CALIXTO [Primary Care Provider] - Additional Instructions: ice bath 3 times daily for 3 days. follow up with primary doctor for persistent symptoms. Prescriptions: Hydrocodone/APAP 5/325 [Ralston 5/325 mg] 1 each PO BID #6 tablet MDD 2
--- NOTE | 2018-07-08 14:22 | XRAY ---
Indication: Pain following fall 3 days ago. Comparison: None 2 views of the left humerus obtained. No bony, articular, or soft tissue abnormalities.
--- NOTE | 2018-07-08 14:25 | XRAY ---
Indication: Pain following fall 3 days ago. Comparison: October 08, 2016. 3 views of the left wrist demonstrates stable radiocarpal degenerative joint space narrowing, mild 1st metacarpal multangular degenerative changes, and old nonunited ulnar styloid tip fracture. No new/acute bony, articular, or soft tissue abnormalities.
--- NOTE | 2018-07-08 14:27 | XRAY ---
Indication: Pain following fall 3 days ago. Comparison: None 3 views of the left hand demonstrates radiocarpal degenerative joint space narrowing, mild 1st metacarpal multangular degenerative changes, old nonunited ulnar styloid tip fracture, and a ring base of the 3rd finger. No other bony, articular, or soft tissue abnormalities.
[2018-07-08 14:59] VITALS: BP 137/72; PULSE 87; O2SAT 94
== END 2018-07-08 15:00 | disposition home or self-care (01) ==
LOC: ED 12:21
DX: S50.12XA Contusion of left forearm, initial encounter (principal); S60.212A Contusion of left wrist, initial encounter; M79.622 Pain in left upper arm; M79.642 Pain in left hand; M25.532 Pain in left wrist; I10 Essential (primary) hypertension; Z79.899 Other long term (current) drug therapy; W19.XXXA Unspecified fall, initial encounter
CPT/HCPCS: 73060; 73110; 73130; 99283

== ENCOUNTER 2018-08-10 16:52 | Observation (INO) | payer MEDICARE ==
[2018-08-10] MEDS ORDERED: DUONEB 0.5-3 MG/3 ml Neb IH ONE ×2 (17:10→18:00)
[2018-08-10] MEDS ORDERED: solu-MEDROL 125 MG IV ONE (17:10)
[2018-08-10] MEDS ORDERED: Sodium Chloride 0.9% 1000 ML 1,000 ML IV SCH ×2 (17:15→21:16)
--- NOTE | 2018-08-10 17:17 | ERPHSYRPT ---
- History of Present Illness Time Seen by Provider: 08/10/18 17:13 Source: patient Exam Limitations: no limitations Patient Subjective Stated Complaint: states has been coughing for four days. nonproductive. denies fever. Triage Nursing Assessment: ambulated to room per self. skin w/d, color normal, resp easy. frequent dry cough noted. coarse breath sounds right lower posterior base noted. Physician History: 62-year-old white female arrives with complaint of cough shortness of breath and wheezing symptoms for 4 days. She denies any fevers denies runny nose states that she is not having any chest pain. Past medical history includes peripheral neuropathy, hyperlipidemia, high blood pressure, COPD, GERD, gallbladder disease, depression, fibroids, restless leg syndrome Past surgical history includes cardiac catheter, cardiac stents, cholecystectomy , orthopedic surgery, left knee scope, toenail removed, rotator cuff repair, thumb surgery, hysterectomy. Social history positive tobacco use denies alcohol or illicit drug use. Timing/Duration: day(s) (4 days) Activities at Onset: none Severity of Dyspnea-Max: moderate Severity of Dyspnea-Current: moderate Possible Cause: occasional episodes Modifying Factors: Improves With: albuterol nebulizer Associated Symptoms: constant, cough, wheezing, No intermittent, No anxiety, No chest pain/discomfort, No edema, No fever, No insomnia, No loss of appetite, No lightheadedness, No weakness, No ankle swelling, No chills, No hemoptysis, No calf pain, No dizziness, No heaviness, No heart racing, No lightheadedness, No leg swelling, No muscle spasms feet, No muscle spasms hands, No painful breathing, No productive cough, No sweating, No tightness, No tingling face International travel in last 2 weeks: No Allergies/Adverse Reactions: No Known Drug Allergies Allergy (Verified 08/10/18 17:02) Home Medications: Clopidogrel Bisulfate [Plavix] 75 mg PO HS 04/09/12 [History] Amlodipine Besylate 5 mg [Norvasc 5 mg] 5 mg PO HS 01/28/15 [History] Ropinirole HCl 4 mg PO HS 01/28/15 [History] Atorvastatin Calcium [Lipitor 40Mg] 40 mg PO HS 06/28/17 [History] Carvedilol 6.25 mg [Coreg 6.25 MG] 6.25 mg PO BID 06/28/17 [History] Isosorbide Mononitrate 30 mg [Imdur 30 MG] 60 mg PO HS 06/28/17 [History] Albuterol Sulfate [Proair Hfa] 8.5 gm IH DAILY 06/20/18 [History] Gabapentin 800 mg PO TID 06/20/18 [History] Nitroglycerin 0.4 mg Tablet [Nitrostat 0.4 MG Tablet] 0.4 mg SL Q5MIN PRN MR X 3 PRN 06/20/18 [History] Ranolazine 500 MG [Ranexa 500 MG] 500 mg PO BID 06/20/18 [History] Venlafaxine HCl ER 75 mg [Effexor XR 75 MG] 75 mg PO HS 06/20/18 [History] Hx Tetanus, Diphtheria Vaccination/Date Given: Yes Hx Influenza Vaccination/Date Given: No Hx Pneumococcal Vaccination/Date Given: No - Review of Systems Constitutional: No Fever, No Chills Eyes: No Symptoms Ears, Nose, & Throat: No Symptoms Respiratory: Cough, Dyspnea, Wheezing, No Stridor Cardiac: No Chest Pain, No Edema, No Syncope Abdominal/Gastrointestinal: No Abdominal Pain, No Nausea, No Vomiting, No Diarrhea Genitourinary Symptoms: No Dysuria Musculoskeletal: No Back Pain, No Neck Pain Skin: No Rash Neurological: No Dizziness, No Focal Weakness, No Sensory Changes Psychological: No Symptoms Endocrine: No Symptoms All Other Systems: Reviewed and Negative - Past Medical History Pertinent Past Medical History: Yes Neurological History: Peripheral Neuropathy ENT History: No Pertinent History Cardiac History: High Cholesterol, Hypertension, Other Respiratory History: COPD Endocrine Medical History: No Pertinent History Musculoskeletal History: Other GI Medical History: GERD, Gallbladder Disease History: No Pertinent History Psycho-Social History: Depression Female Reproductive Disorders: Fibroids Other Medical History: RESTLESS LEG SYNDROME, - Past Surgical History Past Surgical History: Yes Neuro Surgical History: No Pertinent History Cardiac: Cardiac Catheterization, Cardiac Stent Respiratory: No Pertinent History Gastrointestinal: Cholecystectomy Genitourinary: No Pertinent History Musculoskeletal: Orthopedic Surgery Female Surgical History: Hysterectomy Other Surgical History: left knee scope. toe nail removel. shoulder surgery. thumb surgery - Social History Smoking Status: Current every day smoker How long have you smoked: 30 Exposure to second hand smoke: No Drug Use: none Patient Lives Alone: Yes - Female History Hx Now: No - Nursing Vital Signs Nursing Vital Signs: Initial Vital Signs Temperature 97.6 F 08/10/18 16:56 Pulse Rate 82 08/10/18 16:56 Respiratory Rate 18 08/10/18 16:56 Blood Pressure 139/79 08/10/18 16:56 O2 Sat by Pulse Oximetry 99 08/10/18 16:56 Pain Scale Pain Intensity 0 - Physical Exam General Appearance: moderate distress, alert, other (well-developed well- nourished white female moderate distress frequent cough) Eye Exam: PERRL/EOMI, other (fundi are unremarkable) Ears, Nose, Throat Exam: normal ENT inspection, normal pharynx, No abnormal TM ( R), No abnormal TM (L), No sinus pain/drainage, No hearing decreased, No nasal congestion, No pharyngeal erythema, No tonsillar exudate, No tonsillar swelling Neck Exam: normal inspection, supple, full range of motion Respiratory Exam: diminished breath sounds, wheezing, other (bilateral wheezes) Cardiovascular/Chest Exam: normal heart sounds, regular rate/rhythm Abdominal/Gastrointestinal Exam: soft, No tenderness, No distention, No mass Extremity Exam: non-tender, normal range of motion, normal inspection, no calf tenderness, no pedal edema Peripheral Pulses Exam: dorsalis-pedis (R): 2+, dorsalis-pedis (L): 2+ Neurologic Exam: alert, oriented x 3, cooperative, systems engineering manager II-XII nml as tested, normal mood/affect, nml cerebellar function, sensation nml, No motor deficits, No sensory deficit, No disoriented, No confusion, No agitation, No uncooperative , No intoxicated appearance, No depressed mood/affect, No motor weakness, No facial droop, No slurred speech Skin Exam: normal color, warm, No dry SpO2 Interpretation: normal (99%) SpO2: 99 - Course Nursing assessment & vital signs reviewed: Yes EKG Interpreted by Me: RATE (85 bpm), Sinus Rhythm, Left Misenheimer Deviation, Other ( EKG: Sinus arrhythmia, 85 bpm, left axis deviation, no acute ST or T wave changes.) - Radiology Exams Chest X-ray Interpretation: Interpreted by me (no acute disease process noted) Ordered Tests: Active Orders 24 hr Category Date Time Status Wire Spooler STAT Care 08/10/18 17:11 Active EKG-ER Only STAT Care 08/10/18 17:10 Active IV Insertion STAT Care 08/10/18 17:10 Active Pulse Oximetry (ED) STAT Care 08/10/18 17:10 Active CHEST 1 VIEW (PORTABLE) Stat Exams 08/10/18 17:10 Taken BLOOD CULTURE Stat Lab 08/10/18 17:25 Received CBC W DIFF Stat Lab 08/10/18 17:25 Completed CMP Stat Lab 08/10/18 17:25 Completed CULTURE,SPUTUM Stat Lab 08/10/18 17:11 Uncollected NT PRO BNP Stat Lab 08/10/18 17:25 Completed TROPONIN Q3H Lab 08/10/18 17:25 Completed TROPONIN Q3H Lab 08/10/18 20:15 Ordered TROPONIN Q3H Lab 08/10/18 23:15 Ordered TROPONIN Q3H Lab 08/11/18 02:15 Ordered TROPONIN Q3H Lab 08/11/18 05:15 Ordered VENOUS BLOOD GAS Stat Lab 08/10/18 18:10 Completed Peak Expiratory Flow Rate DAILY RT 08/10/18 18:21 Active Pulse Oximetry ROUTINE RT 08/10/18 18:22 Active Respiratory Nebulizer STAT RT 08/10/18 17:12 Completed Respiratory Nebulizer STAT RT 08/10/18 19:25 Active Respiratory Therapy Assessment DAILY RT 08/11/18 07:00 Active Medication Summary Generic Name Dose Route Start Last Admin Trade Name Freq PRN Reason Stop Dose Admin Sodium Chloride 1,000 mls @ 100 mls/hr 08/10/18 17:15 08/10/18 17:43 Sodium Chloride 0.9% 1000 Ml IV 09/09/18 17:14 100 mls/hr .Q10H MOISES Administration Ceftriaxone Sodium/Dextrose 1 g in 50 mls @ 100 mls/hr 08/10/18 19:25 Rocephin 1 Gm-D5w 50 Ml Bag IV 08/10/18 19:54 STAT STA Discontinued Medications Generic Name Dose Route Start Last Admin Trade Name Freq PRN Reason Stop Dose Admin Albuterol Sulfate 2.5 mg 08/10/18 19:25 Proventil 2.5 Mg/3 Ml Neb IH 08/10/18 19:26 STAT ONE Albuterol/Ipratropium 3 ml 08/10/18 17:10 08/10/18 18:04 Duoneb 0.5-3 Mg/3 Ml Neb IH 08/10/18 17:11 3 ml STAT ONE Administration Albuterol/Ipratropium Confirm 08/10/18 18:00 Duoneb 0.5-3 Mg/3 Ml Neb Administered 08/10/18 18:01 Dose 3 ml IH .STK-MED ONE Methylprednisolone Sodium Succinate 125 mg 08/10/18 17:10 08/10/18 17:43 Solu-Medrol 125 Mg IV 08/10/18 17:11 125 mg STAT ONE Administration Methylprednisolone Sodium Succinate Confirm 08/10/18 17:40 Solu-Medrol 125 Mg Administered 08/10/18 17:41 Dose 125 mg .ROUTE .STK-MED ONE Lab/Rad Data: Laboratory Result Diagrams 08/10/18 17:25 08/10/18 17:25 Laboratory Results 08/10/18 08/10/18 08/10/18 Range/Units 18:10 17:25 17:25 WBC (4.0-10.5) K/mm3 RBC (4.1-5.4) M/mm3 Hgb (12.0-16.0) gm/dl Hct (35-47) % MCV (78-100) fl MCH (26-32) pg MCHC (32-36) g/dl RDW (11.5-14.0) % Plt Count (150-450) K/mm3 MPV (6-9.5) fl Gran % (36.0-66.0) % Eos # (Auto) (0-0.5) Absolute Lymphs (auto) (1.0-4.6) Absolute Monos (auto) (0.0-1.3) Lymphocytes % (24.0-44.0) % Monocytes % (0.0-12.0) % Eosinophils % (0.00-5.0) % Basophils % (0.0-0.4) % Absolute Granulocytes (1.4-6.9) Basophils # (0-0.4) pO2/FiO2 Ratio 21.0 % VBG pH 7.40 (7.32-7.42) VBG pCO2 at Pat Temp 43 (42-55) mm/Hg VBG pO2 at Pat Temp 44 H (25-40) mm/Hg VBG HCO3 26.6 (22-28) meq/L VBG O2 Sat (Josefina) 87.5 L (95-100) VBG Base Excess 1.4 (-2.0-2.0) VBG Hemoglobin 15.1 VBG Carboxyhemoglobin 6.5 (0.0-6.9) % T HGB POC Potassium 4.0 (3.5-5.1) Sodium (137-145) mmol/L Potassium (3.5-5.1) mmol/L Chloride (98-107) mmol/L Carbon Dioxide (22-30) mmol/L Anion Gap (5-15) MEQ/L BUN (7-17) mg/dL Creatinine (0.52-1.04) mg/dL Estimated GFR ML/MIN Glucose (74-106) mg/dL Calcium (8.4-10.2) mg/dL Total Bilirubin (0.2-1.3) mg/dL AST (14-36) U/L ALT (0-35) U/L Alkaline Phosphatase (38-126) U/L Troponin I < 0.012 (0.000-0.034) ng/mL NT-Pro-B Natriuret Pep (0-900) pg/mL Serum Total Protein (6.3-8.2) g/dL Albumin (3.5-5.0) g/dL Influenza Type A Ag NEGATIVE (NEGATIVE) Influenza Type B Ag NEGATIVE (NEGATIVE) RSV (PCR) NEGATIVE (Negative) 08/10/18 08/10/18 Range/Units 17:25 17:25 WBC 4.8 (4.0-10.5) K/mm3 RBC 4.23 (4.1-5.4) M/mm3 Hgb 14.4 (12.0-16.0) gm/dl Hct 43.7 (35-47) % MCV 103.3 H (78-100) fl MCH 34.0 H (26-32) pg MCHC 33.0 (32-36) g/dl RDW 12.6 (11.5-14.0) % Plt Count 161 (150-450) K/mm3 MPV 9.8 H (6-9.5) fl Gran % 44.3 (36.0-66.0) % Eos # (Auto) 0.11 (0-0.5) Absolute Lymphs (auto) 1.98 (1.0-4.6) Absolute Monos (auto) 0.56 (0.0-1.3) Lymphocytes % 41.5 (24.0-44.0) % Monocytes % 11.7 (0.0-12.0) % Eosinophils % 2.3 (0.00-5.0) % Basophils % 0.2 (0.0-0.4) % Absolute Granulocytes 2.11 (1.4-6.9) Basophils # 0.01 (0-0.4) pO2/FiO2 Ratio % VBG pH (7.32-7.42) VBG pCO2 at Pat Temp (42-55) mm/Hg VBG pO2 at Pat Temp (25-40) mm/Hg VBG HCO3 (22-28) meq/L VBG O2 Sat (Josefina) (95-100) VBG Base Excess (-2.0-2.0) VBG Hemoglobin VBG Carboxyhemoglobin (0.0-6.9) % T HGB POC Potassium (3.5-5.1) Sodium 138 (137-145) mmol/L Potassium 3.9 (3.5-5.1) mmol/L Chloride 106 (98-107) mmol/L Carbon Dioxide 25 (22-30) mmol/L Anion Gap 11.4 (5-15) MEQ/L BUN 8 (7-17) mg/dL Creatinine 0.78 (0.52-1.04) mg/dL Estimated GFR > 60.0 ML/MIN Glucose 108 H (74-106) mg/dL Calcium 8.6 (8.4-10.2) mg/dL Total Bilirubin 0.50 (0.2-1.3) mg/dL AST 14 (14-36) U/L ALT 14 (0-35) U/L Alkaline Phosphatase 107 (38-126) U/L Troponin I (0.000-0.034) ng/mL NT-Pro-B Natriuret Pep 61.8 (0-900) pg/mL Serum Total Protein 6.7 (6.3-8.2) g/dL Albumin 4.0 (3.5-5.0) g/dL Influenza Type A Ag (NEGATIVE) Influenza Type B Ag (NEGATIVE) RSV (PCR) (Negative) - Progress Progress: improved Air Movement: fair Progress Note: 08/10/18 19:22 Patient still short of breath and wheezing despite iv normal saline, duoneb and solumedrol, case discussed with Dr Vásquez will place patient on rocephin, zithromax place patient on observation with diagnosis of exacerbation of copd . - Departure Time of Disposition: 19:28 Departure Disposition: Observation Clinical Impression: COPD exacerbation, Shortness of breath Condition: Fair Critical Care Time: No Referrals: JASVIR CALIXTO [Primary Care Provider] - Instructions: Chronic Obstructive Pulmonary Disease
[2018-08-10 17:39] LABS: BASOPHIL % 0.2 % (0.0-0.4); Basophil (Absolute #) 0.01 (0-0.4); Eosinophil % 2.3 % (0.00-5.0); Eosinophil (Absolute #) 0.11 (0-0.5); Granulocyte Absolute (ANC) 2.11 (1.4-6.9); Granulocytes % 44.3 % (36.0-66.0); Hematocrit 43.7 % (35-47); Hemoglobin 14.4 gm/dl (12.0-16.0); Lymphocyte (Absolute #) 1.98 (1.0-4.6); Lymphocytes % 41.5 % (24.0-44.0); Mean Cell Volume 103.3 fl (78-100); Mean Platelet Volume 9.8 fl (6-9.5); Monocyte (Absolute #) 0.56 (0.0-1.3); Monocytes % 11.7 % (0.0-12.0); Platelet Count 161 K/mm3 (150-450); Red Blood Count 4.23 M/mm3 (4.1-5.4); Red Cell Distribution Width 12.6 % (11.5-14.0); White Blood Count 4.8 K/mm3 (4.0-10.5)
[2018-08-10] MEDS ORDERED: Sodium Chloride 0.9% 1000 ML 1,000 ML ONE (17:40)
[2018-08-10] MEDS ORDERED: solu-MEDROL 125 MG ONE (17:40)
[2018-08-10 17:50] LABS: ALKALINE PHOSPHATASE 107 U/L (38-126); ANION GAP 11.4 MEQ/L (5-15); BLOOD UREA NITROGEN 8 mg/dL (7-17); CHLORIDE 106 mmol/L (98-107); Calcium 8.6 mg/dL (8.4-10.2); Carbon Dioxide 25 mmol/L (22-30); Creatinine 1 0.78 mg/dL (0.52-1.04); Glucose 108 mg/dL (74-106); NT PRO BNP 61.8 pg/mL (0-900); Potassium 3.9 mmol/L (3.5-5.1); SGOT/AST 14 U/L (14-36); SGPT/ALT 14 U/L (0-35); SODIUM 138 mmol/L (137-145); Total Protein 6.7 g/dL (6.3-8.2)
[2018-08-10 18:03] LABS: INFLUENZA A NEGATIVE (NEGATIVE); INFLUENZA B NEGATIVE (NEGATIVE); RESPIRATORY SYNCTIAL VIRUS NEGATIVE (Negative)
[2018-08-10 18:13] LABS: VBG BASE EXCESS 1.4 (-2.0-2.0); VBG CARBOXYHEMOGLOBIN 6.5 % T HGB (0.0-6.9); VBG HCO3- 26.6 meq/L (22-28); VBG HEMOGLOBIN 15.1; VBG O2 SATURATION 87.5 (95-100); VBG pH 7.4 (7.32-7.42)
[2018-08-10] MEDS ORDERED: PROVENTIL 2.5 MG/3 ML NEB IH ONE ×2 (19:25→19:55)
[2018-08-10] MEDS ORDERED: ROCEPHIN 1 Gm-D5w 50 ml Bag** 1 G/50 ML IVPB IV STA (19:25)
[2018-08-10] MEDS ORDERED: ROCEPHIN 1 Gm-D5w 50 ml Bag** 1 G/50 ML IVPB IV ONE (19:32)
[2018-08-10] MEDS ORDERED: DUONEB 0.5-3 MG/3 ml Neb IH PRN (21:16)
[2018-08-10] MEDS ORDERED: PLAVIX 75 MG Tablet PO SCH (22:00)
[2018-08-10] MEDS ORDERED: Zithromax 500 MG/ 250 ML NaCl Premix 500 MG/250 ML IVPB IV SCH (22:00)
[2018-08-10] MEDS ORDERED: Imdur 60MG PO SCH (22:00)
[2018-08-10] MEDS ORDERED: REQUIP 2MG TAB ONE (22:15)
[2018-08-10] MEDS ORDERED: Coreg 6.25 MG ONE (22:15)
[2018-08-10] MEDS ORDERED: Imdur 60MG PO ONE (22:15)
[2018-08-10] MEDS ORDERED: Neurontin 400 MG ONE (22:15)
[2018-08-10] MEDS ORDERED: Effexor XR 75 MG ONE (22:15)
[2018-08-10] MEDS ORDERED: PLAVIX 75 MG Tablet ONE (22:16)
[2018-08-10] MEDS ORDERED: NORVASC 5 MG ONE (22:16)
[2018-08-10] MEDS ORDERED: ZOCOR 20MG ONE (22:16)
[2018-08-10] MEDS ORDERED: Ranexa 500 MG PO ONE (22:16)
[2018-08-10] MEDS ORDERED: Nitrostat 0.4 MG Tablet SL PRN (22:45)
[2018-08-10] MEDS ORDERED: Effexor XR 75 MG PO SCH (22:45)
[2018-08-10] MEDS ORDERED: REQUIP 2MG TAB PO SCH (22:45)
[2018-08-10] MEDS ORDERED: MORPHINE SULFATE 4 MG INJ ONE (22:53)
[2018-08-10] MEDS ORDERED: ZOCOR 20MG PO SCH (23:00)
[2018-08-10] MEDS ORDERED: NORVASC 5 MG PO SCH (23:00)
[2018-08-10] MEDS: Ranexa 500 MG PO SCH (23:16)
[2018-08-10] MEDS: Coreg 6.25 MG PO SCH (23:16)
[2018-08-10] MEDS: solu-MEDROL 125 MG IV SCH (23:17)
[2018-08-10] MEDS: Neurontin 400 MG PO SCH (23:17)
[2018-08-11] MEDS: solu-MEDROL 125 MG IV SCH ×2 (05:29→11:28)
[2018-08-11 06:09] LABS: BASOPHIL % 0.2 % (0.0-0.4); Basophil (Absolute #) 0.01 (0-0.4); Eosinophil (Absolute #) 0 (0-0.5); Granulocyte Absolute (ANC) 3.72 (1.4-6.9); Granulocytes % 78.3 % (36.0-66.0); Hematocrit 39.5 % (35-47); Hemoglobin 13.6 gm/dl (12.0-16.0); Lymphocyte (Absolute #) 0.97 (1.0-4.6); Lymphocytes % 20.4 % (24.0-44.0); Mean Cell Volume 101.8 fl (78-100); Mean Corpuscular Hgb Concent. 34.4 g/dl (32-36); Mean Platelet Volume 10.1 fl (6-9.5); Monocyte (Absolute #) 0.05 (0.0-1.3); Monocytes % 1.1 % (0.0-12.0); Platelet Count 157 K/mm3 (150-450); Red Blood Count 3.88 M/mm3 (4.1-5.4); Red Cell Distribution Width 12.3 % (11.5-14.0); White Blood Count 4.8 K/mm3 (4.0-10.5)
[2018-08-11 06:32] LABS: ALBUMIN 3.7 g/dL (3.5-5.0); ALKALINE PHOSPHATASE 88 U/L (38-126); ANION GAP 11.8 MEQ/L (5-15); BLOOD UREA NITROGEN 11 mg/dL (7-17); CHLORIDE 109 mmol/L (98-107); Calcium 8.8 mg/dL (8.4-10.2); Carbon Dioxide 24 mmol/L (22-30); Creatinine 1 0.74 mg/dL (0.52-1.04); Glucose 131 mg/dL (74-106); SGOT/AST 13 U/L (14-36); SGPT/ALT 15 U/L (0-35); SODIUM 141 mmol/L (137-145); Total Protein 6.3 g/dL (6.3-8.2)
[2018-08-11] MEDS ORDERED: DUONEB 0.5-3 MG/3 ml Neb IH SCH (07:00)
[2018-08-11 08:00] VITALS: O2SAT 94
[2018-08-11] MEDS: Neurontin 400 MG PO SCH (08:58)
[2018-08-11] MEDS: Ranexa 500 MG PO SCH (08:58)
[2018-08-11] MEDS: Coreg 6.25 MG PO SCH (08:59)
--- NOTE | 2018-08-11 09:04 | XRAY ---
Indication: Cough and short of breath. Comparison: June 20, 2018. Portable chest is now clear. Heart and mediastinal structures within normal limits. Bony thorax intact again with cervical thoracic junction fusion surgery. Impression: Nonacute chest.
[2018-08-11] MEDS ORDERED: Coreg 6.25 MG PO SCH (10:00)
[2018-08-11 11:37] VITALS: BP 135/63; PULSE 100
--- NOTE | 2018-08-11 11:39 | SSS ---
DISCHARGE DIAGNOSIS: ACUTE EXACERBATION OF CHRONIC OBSTRUCTIVE PULMONARY DISEASE. HISTORY: The patient is a 62 year-old white female who had been sick for the past three to four days. She got to feeling bad and called the office for an appointment and was told she would be seen the next day. However, she got worse that evening. She lives alone. She presented herself to the emergency room and subsequently admitted for treatment. PAST MEDICAL/SURGICAL HISTORY: Significant for chronic obstructive pulmonary disease. She has been out of nebulizer medication recently. She also has gastroesophageal reflux disease, gallbladder disease, depression, restless leg syndrome. She has had cardiac stents, cholecystectomy, orthopedic surgery, knee scope, rotator cuff repair, hysterectomy. HOME MEDICATIONS: Plavix 75 mg a day, amlodipine 5 mg at night, ropinirole 4 mg at night, atorvastatin 40 mg at night, carvedilol 6.25 mg b.i.d., Imdur 30 mg a day, Albuterol on PRN basis, gabapentin 800 mg t.i.d., Nitrostat tablets PRN, Ranexa 500 mg b.i.d. and Effexor 75 mg at night. ALLERGIES: NKDA. PHYSICAL EXAMINATION: Presently reveals a well nourished, well developed, 62 year-old white female in no obvious distress presently. Her vital signs on admission showed a temperature 97.6F, pulse 82, respiratory rate 18, blood pressure 139/79. O2 saturation 99% on room air. HEENT: Normocephalic, atraumatic. Pupils equal round reactive to light. Extraocular movements intact. Oropharynx is pink and moist. NECK: Supple without lymphadenopathy, thyromegaly or JVD. CHEST: Revealed coarse rales, slight wheezes but good air movement otherwise. HEART: Regular rate and rhythm without murmurs, rubs or gallops. ABDOMEN: Soft, nontender, nondistended without hepatosplenomegaly or palpable masses. EXTREMITIES: Without clubbing, cyanosis or edema. NEUROLOGIC: The patient is alert and oriented x3. No focal deficits are noted. LAB DATA AND TESTS: Revealed a white blood cell count on 08/11/2018 of 4,800, hemoglobin 13.6, PLT count 157,000. There was 78.3% granulocytes. Troponins have been less than 0.012 on multiple occasions tested throughout the last several hours. The patient's metabolic panel showed a sugar 131 nonfasting, BUN 11, creatinine 0.74. Electrolytes normal. Liver enzymes were normal. Influenza A/B and respiratory syncytial virus were negative on the swab. Venous blood gas with pH 7.40, pCO2 43. Chest x-ray showed no acute disease process. HOSPITAL COURSE: The patient was admitted and given Rocephin, Zithromax and IV steroids. By the next morning she reported she was feeling improved. She felt she could care for herself at home and wished to go back home. We allowed her to be discharged home at this time. We refilled her Albuterol. She was given Augmentin 875 mg twice a day for ten days and prednisone 30 mg a day for another ten days for 20 mg, and then 10 mg over three days each. She was given an appointment to see me in the office within the next week and she was instructed to call us back if she has any worsening of her condition.
[2018-08-11] MEDS ORDERED: ROCEPHIN 1 Gm-D5w 50 ml Bag** 1 G/50 ML IVPB IV SCH (22:00)
[2018-08-11] MEDS ORDERED: NORVASC 5 MG PO SCH (22:00)
[2018-08-11] MEDS ORDERED: ZOCOR 20MG PO SCH (22:00)
== END 2018-08-11 12:34 | disposition home or self-care (01) ==
LOC: ED 16:52 → MED SURG 21:04
PROVIDERS: ADMIT Family Medicine; ATTEND Family Medicine
DX: J44.1 Chronic obstructive pulmonary disease with (acute) exacerbation (principal); Z79.01 Long term (current) use of anticoagulants; Z79.899 Other long term (current) drug therapy
CPT/HCPCS: 36000; 36415; 71045; 80053; 82805; 83880; 84484; 85025; 87040; 87631; 93005; 93041; 94150; 94640; 94760; 96360; 96361; 96365; 96374; 99285; G0378; J0456; J0696; J2270; J2930; J7609; A9270-GY

== ENCOUNTER 2021-04-21 16:06 | Emergency (ER) | payer MEDICARE ==
[2021-04-21] MEDS ORDERED: XYLOCAINE 1% HCL 20 ML MDV IJ ONE (16:17)
[2021-04-21] MEDS ORDERED: XYLOCAINE 1% HCL 20 ML MDV ONE (16:17)
--- NOTE | 2021-04-21 16:57 | ERPHSYRPT ---
- History of Present Illness Time Seen by Provider: 04/21/21 16:10 Source: patient Exam Limitations: no limitations Patient Subjective Stated Complaint: lacerations to R lower leg r/t mechanical fall today Triage Nursing Assessment: . Physician History: 65 years old female presented in the ER with complaint of right anterior knee/upper leg laceration after she tripped on a wire and fell hitting her knee against the ground. Did not hit head, no loss of consciousness she is complaining of more. 10 to sharp pain with ambulation/weightbearing, no difficulty movements of knee. There was bleeding initially which improved with applying pressure. Up-to-date with tetanus. Method of Injury: fell Occurred: just prior to arrival Quality: sharpness Severity of Pain-Max: moderate Severity of Pain-Current: mild Lower Extremities Pain: knee: right Modifying Factors: Improves With: immobilization. Worsens With: movement Allergies/Adverse Reactions: No Known Drug Allergies Allergy (Verified 04/21/21 16:11) Home Medications: Clopidogrel Bisulfate [Plavix] 75 mg PO HS 04/09/12 [History] Amlodipine Besylate 5 mg [Norvasc 5 mg] 5 mg PO HS 01/28/15 [History] Ropinirole HCl 4 mg PO HS 01/28/15 [History] Atorvastatin Calcium [Lipitor 40Mg] 40 mg PO HS 06/28/17 [History] Carvedilol 6.25 mg [Coreg 6.25 MG] 6.25 mg PO BID 06/28/17 [History] Isosorbide Mononitrate 30 mg [Imdur 30 MG] 60 mg PO HS 06/28/17 [History] Albuterol Sulfate [Proair Hfa] 8.5 gm IH DAILY 06/20/18 [History] Gabapentin 800 mg PO TID 06/20/18 [History] Nitroglycerin 0.4 mg Tablet [Nitrostat 0.4 MG Tablet] 0.4 mg SL Q5MIN PRN MR X 3 PRN 06/20/18 [History] Ranolazine 500 MG [Ranexa 500 MG] 500 mg PO BID 06/20/18 [History] Venlafaxine HCl ER 75 mg [Effexor XR 75 MG] 75 mg PO HS 06/20/18 [History] Hx Tetanus, Diphtheria Vaccination/Date Given: Yes Hx Influenza Vaccination/Date Given: Yes Hx Pneumococcal Vaccination/Date Given: No Immunizations Up to Date: Yes Travel Risk - International Travel Have you traveled outside of the country in past 3 weeks: No - Coronavirus Screening Are you exhibiting any of the following symptoms?: No Close contact with a COVID-19 positive Pt in past 14-21 Days: No - Vaccine Status Have you recieved a Covid-19 vaccination: No - Review of Systems Constitutional: No Symptoms Ears, Nose, & Throat: No Symptoms Respiratory: No Symptoms Cardiac: No Symptoms Abdominal/Gastrointestinal: No Symptoms Genitourinary Symptoms: No Symptoms Musculoskeletal: Injury Skin: Skin Lesions Neurological: No Symptoms Psychological: No Symptoms Endocrine: No Symptoms Hematologic/Lymphatic: No Symptoms - Past Medical History Pertinent Past Medical History: Yes Neurological History: Peripheral Neuropathy ENT History: No Pertinent History Cardiac History: Coronary Artery Disease, High Cholesterol, Hypertension, Myocardial Infarction ([place]) Respiratory History: COPD Endocrine Medical History: No Pertinent History Musculoskeletal History: No Pertinent History GI Medical History: GERD, Gallbladder Disease History: No Pertinent History Psycho-Social History: Depression Female Reproductive Disorders: No Pertinent History Other Medical History: HX OF 2 MIs WITH STENT PLACEMENT 2009. HX OF RESTLESS LEG SYNDROME. PERIPHERAL NEUROPATHY BILATERAL LOWER LEGS. 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 toe nail removel. shoulder surgery. thumb surgery. CARDIAC STENTS X2 - Social History Smoking Status: Current every day smoker How long have you smoked: 30 Exposure to second hand smoke: No Drug Use: none Patient Lives Alone: Yes - Female History Hx Now: No - Nursing Vital Signs Nursing Vital Signs: Initial Vital Signs Temperature 98.6 F 04/21/21 16:12 Pulse Rate 89 04/21/21 16:12 Respiratory Rate 18 04/21/21 16:12 Blood Pressure 170/95 04/21/21 16:12 O2 Sat by Pulse Oximetry 98 04/21/21 16:12 Pain Scale Pain Intensity 8 - Physical Exam General Appearance: no apparent distress, alert Neck Exam: normal inspection, full range of motion Cardiovascular/Respiratory Exam: normal breath sounds, regular rate/rhythm Back Exam: normal inspection, normal range of motion Legs Exam: right leg: bone tenderness (Tibial tuberosity area laceration 4 cm. No active bleeding or spurting.), left leg: non-tender, normal inspection, no evidence of injury, bilateral leg: normal range of motion Knees Exam: left knee: normal inspection, no evidence of injury, bilateral knee: non-tender Ankle Exam: bilateral ankle: non-tender, normal inspection, normal range of motion, no evidence of injury Neuro/Tendon Exam: normal sensation, normal motor functions Mental Status Exam: alert, oriented x 3 Skin Exam: normal color SpO2 Interpretation: normal SpO2: 98 O2 Delivery: Room Air Procedures - Laceration/Wound Repair Right Anterior Knee Time of Procedure: 16:56 Wound Location: Right Wound Length (cm): 4 Wound's Depth, Shape: superficial Wound Explored: clean Irrigated: Yes Hibiclens Prep: Yes Anesthesia: 1% Lidocaine Volume Anesthetic (ccs): 5 Wound Repaired With: sutures Suture Size/Type: 3-0 Number of Sutures: 5 Layer Closure?: No Sterile Dressing Applied?: Yes Ordered Tests: Active Orders 24 hr Category Date Time Status Wound Care STAT Care 04/21/21 16:23 Active KNEE (3 VIEWS) Stat Exams 04/21/21 Ordered Medication Summary Discontinued Medications Generic Name Dose Route Start Last Admin Trade Name Freq PRN Reason Stop Dose Admin Lidocaine HCl 10 ml 04/21/21 16:17 04/21/21 16:19 Xylocaine 1% Hcl 20 Ml Mdv IJ 04/21/21 16:18 10 ml STAT ONE Administration Lidocaine HCl Confirm 04/21/21 16:17 Xylocaine 1% Hcl 20 Ml Mdv Administered 04/21/21 16:18 Dose 10 ml .ROUTE .STK-MED ONE - Progress Progress: improved Progress Note: 04/21/21 17:02 Laceration is repaired. Appreciate any fracture x-rays reviewed by me, follow- up. Counseled pt/family regarding: diagnosis, need for follow-up, rad results - Departure Departure Disposition: Home Clinical Impression: Laceration of leg Qualifiers: Encounter type: initial encounter Laterality: right Qualified Code(s): S81.811A - Laceration without foreign body, right lower leg, initial encounter Condition: Stable Critical Care Time: No Referrals: JASVIR CALIXTO NP [Primary Care Provider] - Follow Up with PCP/3 days Instructions: Laceration Repair With Stitches (DC) Additional Instructions: Take Tylenol as needed for pain. Follow-up with primary care for reevaluation. Suture removal in 2 weeks. Return to ER for increasing swelling pain, difficulty ambulation, redness, discharge, fever chills etc.
[2021-04-21] MEDS ORDERED: BACIGUENT PACKET TP ONE (17:18)
[2021-04-21] MEDS ORDERED: BACIGUENT PACKET ONE (17:18)
[2021-04-21 17:24] VITALS: BP 161/83; PULSE 80; O2SAT 96
--- NOTE | 2021-04-22 08:41 | XRAY ---
Indication: Laceration following fall. Comparison: None 3 portable views right knee demonstrate mild osteopenia. No other bony, articular, or soft tissue abnormalities.
== END 2021-04-21 17:28 | disposition home or self-care (01) ==
LOC: ED 16:06
DX: S81.811A Laceration without foreign body, right lower leg, initial encounter (principal); W26.8XXA Contact with other sharp object(s), not elsewhere classified, initial encounter
CPT/HCPCS: 12002; 73562; 96372; 99284; A9270-GY

== ENCOUNTER 2022-01-19 16:05 | Emergency (ER) | payer MEDICARE ==
[2022-01-19] MEDS ORDERED: Rocephin 1000 MG INJ IM ONE (16:49)
--- NOTE | 2022-01-19 16:54 | ERPHSYRPT ---
- History of Present Illness Time Seen by Provider: 01/19/22 16:49 Source: patient Exam Limitations: no limitations Patient Subjective Stated Complaint: PT HERE FOR INFECTION TO CATH SITE RIGHT LEG, WAS DONE A WEEK AND HALF AGO, NO FEVER Triage Nursing Assessment: PT ALERT, RESP EASY, FACE MASK IN PLACE, SKIN W/D/P, HAS YELLOW DRAINAGE, MOIST SKIN AND REDNESS TO SITE, HAS PURPLE 5TH TOE ON RIGHT FOOT FROM POOR CIRCULATION Physician History: Patient is 66-year-old female with significant history of peripheral vascular disease for which approximately week ago patient underwent right femoral angioplasty. Patient had a surgical wound in her right groin. Since last 2 days that wound has been having some discharge and some foul-smelling from the wound so patient came to the emergency room to get it checked out. Patient denies any fever redness or erythema around the wound. Patient denies any other symptoms. Timing/Duration: yesterday Associated Symptoms: denies symptoms Allergies/Adverse Reactions: No Known Drug Allergies Allergy (Verified 01/19/22 16:34) Home Medications: Clopidogrel Bisulfate [Plavix] 75 mg PO HS 04/09/12 [History] Amlodipine Besylate 5 mg [Norvasc 5 mg] 5 mg PO HS 01/28/15 [History] Ropinirole HCl 4 mg PO HS 01/28/15 [History] Atorvastatin Calcium [Lipitor 40Mg] 40 mg PO HS 06/28/17 [History] Carvedilol [Coreg ] 6.25 mg PO BID 06/28/17 [History] Isosorbide Mononitrate 30 mg [Imdur 30 MG] 60 mg PO HS 06/28/17 [History] Albuterol Sulfate [Proair Hfa] 8.5 gm IH DAILY 06/20/18 [History] Gabapentin 800 mg PO TID 06/20/18 [History] Nitroglycerin 0.4 mg Tablet [Nitrostat 0.4 MG Tablet] 0.4 mg SL Q5MIN PRN MR X 3 PRN 06/20/18 [History] Ranolazine 500 MG [Ranexa 500 MG] 500 mg PO BID 06/20/18 [History] Venlafaxine HCl ER 75 mg [Effexor XR 75 MG] 75 mg PO HS 06/20/18 [History] Hx Tetanus, Diphtheria Vaccination/Date Given: Yes Hx Influenza Vaccination/Date Given: Yes Hx Pneumococcal Vaccination/Date Given: No Immunizations Up to Date: Yes Travel Risk - International Travel Have you traveled outside of the country in past 3 weeks: No - Coronavirus Screening Are you exhibiting any of the following symptoms?: No Close contact with a COVID-19 positive Pt in past 14-21 Days: No - Vaccine Status Have you recieved a Covid-19 vaccination: No - Review of Systems Constitutional: No Fever, No Chills Eyes: No Symptoms Ears, Nose, & Throat: No Symptoms Respiratory: No Cough, No Dyspnea Cardiac: No Chest Pain, No Edema, No Syncope Abdominal/Gastrointestinal: No Abdominal Pain, No Nausea, No Vomiting, No Diarrhea Genitourinary Symptoms: No Dysuria Musculoskeletal: No Back Pain, No Neck Pain Skin: Cellulitis (right groin surgical wound area), No Rash Neurological: No Dizziness, No Focal Weakness, No Sensory Changes Psychological: No Symptoms Endocrine: No Symptoms All Other Systems: Reviewed and Negative - Past Medical History Pertinent Past Medical History: Yes Neurological History: Peripheral Neuropathy ENT History: No Pertinent History Cardiac History: Coronary Artery Disease, High Cholesterol, Hypertension, Myocardial Infarction ([place]) Respiratory History: COPD Endocrine Medical History: No Pertinent History Musculoskeletal History: No Pertinent History GI Medical History: GERD, Gallbladder Disease History: No Pertinent History Psycho-Social History: Depression Female Reproductive Disorders: No Pertinent History Other Medical History: HX OF 2 MIs WITH STENT PLACEMENT 2009. HX OF RESTLESS LEG SYNDROME. PERIPHERAL NEUROPATHY BILATERAL LOWER LEGS. 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 toe nail removel. shoulder surgery. thumb surgery. CARDIAC STENTS X2 - Social History Smoking Status: Current every day smoker How long have you smoked: 30 Exposure to second hand smoke: Yes Drug Use: none Patient Lives Alone: Yes - Nursing Vital Signs Nursing Vital Signs: Initial Vital Signs Temperature 97.8 F 01/19/22 16:28 Pulse Rate 82 07/10/22 16:28 Respiratory Rate 18 01/19/22 16:28 Blood Pressure 171/82 01/19/22 16:28 O2 Sat by Pulse Oximetry 97 01/19/22 16:28 Pain Scale Pain Intensity 10 - Physical Exam General Appearance: no apparent distress Eye Exam: PERRL/EOMI Ears, Nose, Throat Exam: normal ENT inspection Neck Exam: normal inspection Respiratory Exam: normal breath sounds Cardiovascular Exam: regular rate/rhythm Gastrointestinal/Abdomen Exam: soft Back Exam: normal inspection Extremity Exam: normal inspection Skin Exam: normal color, other (mucopurulent discharge from right groin surgical wound) SpO2: 97 - Course Nursing assessment & vital signs reviewed: Yes - Progress Progress: unchanged Counseled pt/family regarding: diagnosis, need for follow-up - Departure Departure Disposition: Home Clinical Impression: Surgical wound infection Condition: Stable Critical Care Time: No Referrals: JASVIR CALIXTO FI[employer] RETURN REPAIRER [Primary Care Provider] - Follow up/PCP as directed Instructions: Wound Care (DC) Additional Instructions: Discharge/Care Plan DAYAMI COTTO was seen on 01/19/22 in the Emergency Room. The patient was counseled regarding Diagnosis,Lab results, Imaging studies, need for follow up and when to return to the Emergency Room. Prescriptions given: Discharge Note I have spoken with the patient and/or caregivers. I have explained the patient's condition, diagnosis and treatment plan based on the information available to me at this time. I have answered the patient's and/or caregiver's questions and addressed any concerns. The patient and/or caregivers have as good understanding of the patient's diagnosis, condition and treatment plan as can be expected at this point. The vital signs have been stable. The patient's condition is stable and appropriate for discharge from the emergency department. The patient will pursue further outpatient evaluation with the primary care physician or other designated or consulting physician as outlined in the discharge instructions. The patient and/or caregivers are agreeable to this plan of care and follow-up instructions have been explained in detail. The patient and/or caregivers have received these instruction. The patient/and or caregivers are aware that any significant change in condition or worsening of symptoms should prompt an immediate return to this or the closest emergency department or call 911. DAYAMI COTTO was seen on 01/19/22 n the Emergency Room. At that time you were treated for an emergent condition, during your visit Laboratory, Radiology and/or other procedures may have been ordered. It is very important that you follow-up with your Primary Care Physician JASVIR CALIXTO within the next 24-48 hours to review your Emergency Room visit and the final results of testing that was ordered. Some test results such as Urine Cultures, Blood Cultures, and other cultures if ordered will not be finalized for 24-48 hours. If you do not have a Primary Care Provider please call the medical records department at [phone] ext [phone] to obtain a copy of your results or you may sign into our patient portal to obtain these results by visiting us @ [email or web address] and completing the following steps: 1. Click on the Patient Portal link 2. Click the Patient Self Enrollment Link to complete the enrollment form and entering your 3. Once the enrollment form is completed you will receive an email with a temporary ID and password at the email address you provided. 4. Next choose a user name and password. Your user name must be at least 4 characters long and your password must be at least 4 characters long. 5. Choose a security question from the list and provide your answer to the question. If you already have signed into the Health Portal you may access your Health Care Information 02/02 by the following steps: 1. Login to our website @ [email or web address] 2. Enter your original user name and password. FAQS The [facility] Portal is an online tool that contains your Lab Results, Radiology Reports, Visit History, Discharge Instructions and Health Summary Lab and Radiology Results will not be available for 72 hours on the portal. The Portal is a secure site, passwords are encryted and URLs are re-written so they cannot be copied and pasted. You and authorized family members are the only ones who can access your Portal. Also there is a timeout feature that protects your information if you leave the Portal page open. If you have technical difficulty please use the Contact Us link on the page this will allow you to submit any questions you have regarding the Portal or you may contact the Medical Record Department at [phone]. Prescriptions: Cephalexin Mh 500 mg [Keflex 500 mg] 500 mg PO Q6H #40 cap
[2022-01-19] MEDS ORDERED: Rocephin 1000 MG INJ ONE (16:57)
[2022-01-19] MEDS ORDERED: BACIGUENT PACKET ONE (17:06)
[2022-01-19] MEDS ORDERED: BACIGUENT PACKET TP ONE (17:17)
[2022-01-19 17:18] VITALS: BP 154/72; PULSE 80; O2SAT 98
== END 2022-01-19 17:25 | disposition home or self-care (01) ==
LOC: ED 16:05
DX: T81.41XA Infection following a procedure, superficial incisional surgical site, initial encounter (principal); E78.5 Hyperlipidemia, unspecified; I10 Essential (primary) hypertension; J44.9 Chronic obstructive pulmonary disease, unspecified; Z72.0 Tobacco use; Z79.02 Long term (current) use of antithrombotics/antiplatelets; Z79.899 Other long term (current) drug therapy; Z28.310 Unvaccinated for COVID-19
CPT/HCPCS: 96372; 99283; J0696; A9270-GY

== ENCOUNTER 2023-09-28 23:29 | Emergency (ER) | payer MEDICARE ==
--- NOTE | 2023-09-28 23:34 | ERPHSYRPT ---
- History of Present Illness Time Seen by Provider: 09/28/23 23:34 Source: patient, EMS Exam Limitations: no limitations Physician History: This is a thin, 68-year-old white female patient of nurse practitioner Wesley who was brought into the emergency department by the ambulance secondary to significant headache and associated hypertension. Patient states that she has had a severe headache intermittently for 3 weeks. She has known that her blood pressure has been significantly elevated with the systolic blood pressure in the 190s to over 200. She describes the headache as constant and sharp in the bilateral forehead region as well as the right occipital region. Patient even states approximately 3 weeks ago she was having trouble speaking and had trouble moving her right upper and lower extremities. This resolved. Her son wanted to take her to the emergency department however she declined at that time. She states that she was also seen by her filterer who told her that they were going to schedule an outpatient CAT scan to evaluate for possible CVA. She stated that that never took place. Today, patient states that she did not take any of her medications. Patient has 3 different medications that she uses to help control blood pressure. Patient has history of coronary disease and has [address] She is on Plavix. She has a history of hyperlipidemia COPD and peripheral neuropathy. Patient currently has no shortness of breath and no chest pain. Timing/Duration: week(s) (3), worse (Today) Head Pain Location: frontal (Bilateral), occipital (Right) Severity of Pain-Max: moderate Severity of Pain-Current: moderate Recent Head Trauma: no recent headache/trauma, chronic headaches Modifying Factors: Improves With: cold therapy Associated Symptoms: No confusion, No dizziness, No loss of consciousness, No nausea/vomiting, No sensitive to light, No stiff neck, No vision changes, No visual disturbance Allergies/Adverse Reactions: No Known Drug Allergies Allergy (Verified 09/28/23 23:32) Home Medications: Clopidogrel Bisulfate [Plavix] 75 mg PO HS 04/09/12 [History] Ropinirole HCl 8 mg PO HS 01/28/15 [History] Atorvastatin Calcium [Lipitor 40Mg] 40 mg PO HS 06/28/17 [History] Venlafaxine HCl ER 75 mg [Effexor XR 75 MG] 150 mg PO HS 06/20/18 [History] Gabapentin [Neurontin ] 300 mg PO TID 09/28/23 [History] Hydroxyzine HCl 25 mg [Atarax 25 mg] 25 mg PO HS 09/28/23 [History] Losartan Potassium 50 mg [Cozaar 50 MG] 50 mg PO HS 09/28/23 [History] Nebivolol HCl 20 mg PO BID 09/28/23 [History] carvediloL [Coreg] 25 mg PO BID 09/28/23 [History] Hx Tetanus, Diphtheria Vaccination/Date Given: Yes Hx Influenza Vaccination/Date Given: Yes Hx Pneumococcal Vaccination/Date Given: No Travel Risk - International Travel Have you traveled outside of the country in past 3 weeks: No - Coronavirus Screening Are you exhibiting any of the following symptoms?: No Close contact with a COVID-19 positive Pt in past 14-21 Days: No - Vaccine Status Have you recieved a Covid-19 vaccination: No - Review of Systems Constitutional: No Symptoms Eyes: No Symptoms Ears, Nose, & Throat: No Symptoms Respiratory: No Symptoms Cardiac: No Symptoms Abdominal/Gastrointestinal: No Symptoms Genitourinary Symptoms: No Symptoms Musculoskeletal: No Symptoms Skin: No Symptoms Neurological: Headache Psychological: No Symptoms Endocrine: No Symptoms Hematologic/Lymphatic: No Symptoms Immunological/Allergic: No Symptoms All Other Systems: Reviewed and Negative - Past Medical History Pertinent Past Medical History: Yes Neurological History: Peripheral Neuropathy ENT History: No Pertinent History Cardiac History: Coronary Artery Disease, High Cholesterol, Hypertension, Myocardial Infarction ([place]) Respiratory History: COPD Endocrine Medical History: No Pertinent History Musculoskeletal History: No Pertinent History GI Medical History: GERD, Gallbladder Disease History: No Pertinent History Psycho-Social History: Depression Female Reproductive Disorders: No Pertinent History Other Medical History: HX OF 2 MIs WITH STENT PLACEMENT 2009. HX OF RESTLESS LEG SYNDROME. PERIPHERAL NEUROPATHY BILATERAL LOWER LEGS. 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 toe nail removel. shoulder surgery. thumb surgery. CARDIAC STENTS X2 - Social History Smoking Status: Current every day smoker How long have you smoked: 30 Exposure to second hand smoke: Yes Drug Use: none Patient Lives Alone: Yes - Nursing Vital Signs Nursing Vital Signs: Initial Vital Signs Temperature 97.4 F 09/28/23 23:31 Pulse Rate 100 H 09/28/23 23:31 Respiratory Rate 28 H 09/28/23 23:31 Blood Pressure 219/105 09/28/23 23:31 O2 Sat by Pulse Oximetry 98 09/28/23 23:31 Pain Scale Pain Intensity 10 - Physical Exam General Appearance: no apparent distress, alert, anxiety, thin Eye Exam: PERRL/EOMI, eyes nml inspection Ears, Nose, Throat Exam: normal ENT inspection, moist mucous membranes Neck Exam: normal inspection, non-tender, supple, full range of motion Respiratory Exam: normal breath sounds, lungs clear, airway intact, No chest tenderness, No respiratory distress Cardiovascular Exam: regular rate/rhythm, normal heart sounds, normal peripheral pulses Gastrointestinal/Abdominal Exam: soft, normal bowel sounds, No tenderness Back Exam: normal inspection, normal range of motion, No CVA tenderness, No vertebral tenderness Extremity Exam: normal inspection, normal range of motion, pelvis stable Mental Status Exam: alert, oriented x 3, 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 Exam: normal hearing, normal speech, PERRL Coordination/Gait Exam: normal finger to nose, normal gait, normal cerebellar function Motor/Sensory Exam: no motor deficit, no sensory deficit Skin Exam: normal color, warm, dry Lymphatic Exam: No adenopathy SpO2 Interpretation: normal O2 Delivery: Room Air - Course Nursing assessment & vital signs reviewed: Yes Ordered Tests: Active Orders 24 hr Category Date Time Status EKG-ER Only STAT Care 09/29/23 00:18 Active IV Insertion STAT Care 09/29/23 00:18 Active NPO (ED) STAT Care 09/29/23 00:18 Active Pulse Oximetry (ED) STAT Care 09/29/23 00:18 Active HEAD WITHOUT CONTRAST [CT] Stat Exams 09/29/23 00:18 Completed CBC W DIFF Stat Lab 09/29/23 00:30 Completed CMP Stat Lab 09/29/23 00:30 Completed UA W/RFX UR CULTURE Stat Lab 09/29/23 00:31 Completed Medication Summary Discontinued Medications Generic Name Dose Route Start Last Admin Trade Name Freq PRN Reason Stop Dose Admin Labetalol HCl 10 mg 09/29/23 00:19 09/29/23 00:36 Labetalol Hcl 20 Mg/4 Ml Disp.Syringe IV 09/29/23 00:20 10 mg STAT ONE Administration Labetalol HCl Confirm 09/29/23 00:34 Labetalol Hcl 20 Mg/4 Ml Disp.Syringe Administered 09/29/23 00:35 Dose 20 mg IV .STK-MED ONE Lab/Rad Data: Laboratory Result Diagrams 09/29/23 00:30 09/29/23 00:30 Laboratory Results 09/29/23 09/29/23 09/29/23 Range/Units 00:31 00:30 00:30 WBC 5.5 (4.0-10.5) x10^3/uL RBC 4.45 (4.1-5.4) x10^6/uL Hgb 15.1 (12.0-16.0) g/dL Hct 46.2 (35-47) % MCV 103.8 H (78-100) fL MCH 33.9 H (26-32) pg MCHC 32.7 (32-36) g/dL RDW 12.8 (11.5-14.0) % Plt Count 179 (150-450) x10^3/uL MPV 9.0 (7.5-11.0) fL Gran % 52.8 (36.0-66.0) % Immature Gran % (Auto) 0.2 (0.00-0.4) % Nucleat RBC Rel Count 0.0 (0.00-0.1) % Eos # (Auto) 0.16 (0-0.5) x10^3/uL Immature Gran # (Auto) 0.01 (0.00-0.03) x10^3u/L Absolute Lymphs (auto) 1.95 (1.0-4.6) x10^3/uL Absolute Monos (auto) 0.42 (0.0-1.3) x10^3/uL Absolute Nucleated RBC 0.00 (0.00-0.01) x10^3u/L Lymphocytes % 35.5 (24.0-44.0) % Monocytes % 7.7 (0.0-12.0) % Eosinophils % 2.9 (0.00-5.0) % Basophils % 0.9 (0.0-0.4) % Absolute Granulocytes 2.90 (1.4-6.9) x10^3/uL Basophils # 0.05 (0-0.4) x10^3/uL Sodium 138 (135-145) mmol/L Potassium 3.8 (3.5-5.1) mmol/L Chloride 100 (98-107) mmol/L Carbon Dioxide 29 (22-30) mmol/L Anion Gap 13.3 (5-15) MEQ/L BUN 11 (7-17) mg/dL Creatinine 0.87 (0.52-1.04) mg/dL Estimated GFR 72.5 ML/MIN Glucose 90 (74-106) mg/dL Calcium 9.5 (8.4-10.2) mg/dL Total Bilirubin 0.30 (0.2-1.3) mg/dL AST 22 (14-36) U/L ALT 14 (0-35) U/L Alkaline Phosphatase 96 (38-126) U/L Serum Total Protein 8.5 H (6.3-8.2) g/dL Albumin 5.0 (3.5-5.0) g/dL Urine Color Yellow (Yellow) Urine Appearance Clear (Clear) Urine pH 7.5 (4.6-8.0) Ur Specific Fe [employer] <=1.005 (1.005-1.030) Urine Protein Negative (Negative) Urine Glucose (UA) Negative (Negative) mg/dL Urine Ketones Negative (Negative) Urine Blood Negative (Negative) Urine Nitrite Negative (Negative) Urine Bilirubin Negative (Negative) Urine Urobilinogen 0.2 (0.2) mg/dL Ur Leukocyte Esterase Negative (Negative) U Hyaline Cast (Auto) NONE SEEN (0-2) /LPF Urine Microscopic RBC 0-2 (0-5) /HPF Urine Microscopic WBC 0-2 (0-5) /HPF Ur Epithelial Cells None Seen (None Seen) /HPF Urine Bacteria None Seen (None Seen) /HPF Urine Culture Reflexed NO (NO) - Progress Progress: improved, re-examined Air Movement: good Progress Note: 09/29/23 00:36 This patient's medical issue is 1 of moderate complexity. The level complex in the workup performed is based on review of the patient's past medical history, review of the patient's medication list, review of patient drug allergy list, history present illness and physical findings on examination. The workup in this patient is placement of intravenous line, twelve-lead EKG, CBC, CMP, urinalysis, CT scan of the head without contrast. I will also provide her with labetalol 10 mg intravenously. My goal is to try to drop her systolic pressure approximately 25% 09/29/23 02:07 I interpreted the patient's laboratory data results. There is no evidence of any acute, emergent medical issues at this time. The CT scan of the head without contrast was interpreted by the radiologist and I reviewed the impression. There is no evidence for an acute, intracranial abnormality. There is mild cortical cerebral atrophy and chronic microvascular changes. There is a well-defined slightly hyperdense lesion in the extra-axial space along the frontal convexity with coarse peripheral calcifications. ? Calcified meningioma. When compared to CT scan of the head without contrast dated 05/12/2015, it has mildly increased in size. Patient was informed of the above-stated CT scan of the head findings. Patient's current systolic blood pressures in the 150s to 160s. Blood Culture(s) Obtained: No Antibiotics given: No Counseled pt/family regarding: lab results, diagnosis, need for follow-up, rad results Medical Desision Making - Independent Historian Additional History obtained from: Family - Diagnostic Testing Diagnostic test were ordered, analyzed, and reviewed by me: Yes Radiological Interpretation: Reviewed by me, Teleradiologist Report - Risk of complications Low Risk: Low risk of morbidity from additional dx testing or treatment - Departure Departure Disposition: Home Clinical Impression: Hypertensive urgency, Headache, Calcified cerebral meningioma, Noncompliance with medication regimen Condition: Stable Critical Care Time: No Referrals: JASVIR CALIXTO NP [Primary Care Provider] - Follow up/PCP as directed Additional Instructions: Take all your medications as prescribed. Call your primary care provider and your filterer later today, 09/29/2023 for obtaining follow-up appointment the next 3 to 5 days.
[2023-09-28 23:52] VITALS: TEMP 97.4
[2023-09-29] MEDS ORDERED: TRANDATE 20 MG/4 ML SYRINGE IV ONE (00:34)
[2023-09-29] MEDS: TRANDATE 20 MG/4 ML SYRINGE IV ONE (00:36)
[2023-09-29 00:41] LABS: Appearance Clear (Clear); Bacteria None Seen /HPF (None Seen); Bilirubin Negative (Negative); Blood Negative (Negative); Epithelial Cells None Seen /HPF (None Seen); Glucose, Urine Negative (Negative); Hyaline Casts NONE SEEN /LPF (0-2); Ketones Negative (Negative); Leukocyte Esterase Negative (Negative); Nitrite Negative (Negative); Ph 7.5 (4.6-8.0); Protein,Urine Dip Negative (Negative); RBC 0-2 /HPF (0-5); Specific Gravity <=1.005 (1.005-1.030); Urobilinogen 0.2 mg/dL (0.2); WBC 0-2 /HPF (0-5)
[2023-09-29 00:41] LABS: BASOPHIL % 0.9 % (0.0-0.4); Basophil (Absolute #) 0.05 x10^3/uL (0-0.4); Eosinophil % 2.9 % (0.00-5.0); Eosinophil (Absolute #) 0.16 x10^3/uL (0-0.5); Hematocrit 46.2 % (35-47); Hemoglobin 15.1 g/dL (12.0-16.0); IMMATURE GRAN # 0.01 x10^3u/L (0.00-0.03); IMMATURE GRAN % 0.2 % (0.00-0.4); Lymphocyte (Absolute #) 1.95 x10^3/uL (1.0-4.6); Lymphocytes % 35.5 % (24.0-44.0); Mean Cell Volume 103.8 fL (78-100); Mean Corpuscular Hemoglobin 33.9 pg (26-32); Mean Corpuscular Hgb Concent. 32.7 g/dL (32-36); Monocyte (Absolute #) 0.42 x10^3/uL (0.0-1.3); Monocytes % 7.7 % (0.0-12.0); Neutrophil % 52.8 % (36.0-66.0); Platelet Count 179 x10^3/uL (150-450); Red Blood Count 4.45 x10^6/uL (4.1-5.4); Red Cell Distribution Width 12.8 % (11.5-14.0); White Blood Count 5.5 x10^3/uL (4.0-10.5)
[2023-09-29 00:49] LABS: ANION GAP 13.3 MEQ/L (5-15); BILIRUBIN,TOTAL 0.3 mg/dL (0.2-1.3); Calcium 9.5 mg/dL (8.4-10.2); Creatinine 1 0.87 mg/dL (0.52-1.04); EST GLOMERULAR FILTRATION RATE 72.5 ML/MIN; Potassium 3.8 mmol/L (3.5-5.1); Total Protein 8.5 g/dL (6.3-8.2)
[2023-09-29 00:50] LABS: ADD URINE CULTURE? NO (NO)
--- NOTE | 2023-09-29 01:51 | XRAY ---
CLINICAL HISTORY: Severe headache; HTN TECHNIQUE: Multiple axial images are obtained from the skull base to the vertex without contrast. CT scan was performed according to ALARA (as low as reasonable achievable). COMPARISON: 05/12/2015 FINDINGS: The brain shows normal morphology, attenuation, and volume for age. Mild corticerebral atrophic changes with prominent sulci noted. Few scattered hypodensities in bilateral periventricular deep white matter-likely chronic microvascular ischemic changes. A well defined slightly hyperdense lesion noted in the extra axial space along the right frontal convexity measuring ~ 14 x 11.3 mm (previous 10 x 8.5 mm). The lesion shows peripheral coarse calcifications. No significant mass effect. Minimal adjacent bony hyperostosis noted. No evidence of hemorrhage, edema, mass effect, midline shift, extra axial collection, or hydrocephalus is noted. Ventricles, sulci, and basal cisterns are symmetric and normal in size and configuration. The travis-white matter differentiation is preserved. Visualized paranasal sinuses and mastoid air cells are well aerated. Orbital contents are within normal limits. Bony structures are intact. IMPRESSION: 1. No evidence of acute intracranial abnormality is demonstrated 2. Mild corticocerebral atrophy and chronic microvascular ischemic changes. 3. A well defined slightly hyperdense lesion in the extra axial space along the right frontal convexity, with peripheral coarse calcifications. No significant mass effect. Minimal adjacent bony hyperostosis noted. - calcified mengioma. The lesion has mildly increased in size as compared to prior. Electronically Signed by: Dr. Jaleel Seay MD. (09/29/2023 01:48:26 EDT)
[2023-09-29] MEDS ORDERED: Zofran 4 MG/2 ML VIAL ONE (02:24)
[2023-09-29] MEDS ORDERED: MORPHINE SULFATE 2 MG INJ ONE (02:24)
[2023-09-29] MEDS: Zofran 4 MG/2 ML VIAL IV ONE (02:27)
[2023-09-29] MEDS: MORPHINE SULFATE 2 MG INJ IV ONE (02:28)
[2023-09-29 02:38] VITALS: BP 170/72; PULSE 78; RESP 17; O2SAT 96
== END 2023-09-29 02:59 | disposition home or self-care (01) ==
LOC: ED 23:29
DX: I16.0 Hypertensive urgency (principal); R51.9 Headache, unspecified; D32.0 Benign neoplasm of cerebral meninges; Z91.148 Patient's other noncompliance with medication regimen for other reason; I10 Essential (primary) hypertension; E78.5 Hyperlipidemia, unspecified; Z79.02 Long term (current) use of antithrombotics/antiplatelets; Z79.899 Other long term (current) drug therapy; Z28.310 Unvaccinated for COVID-19; Z72.0 Tobacco use
CPT/HCPCS: 36000; 36415; 70450; 80053; 81001; 85025; 93005; 94760; 96374; 96375; 99284; J2270; J2405

== ENCOUNTER 2024-02-28 21:50 | Emergency (ER) | payer MEDICARE, OTHER ==
--- NOTE | 2024-02-28 22:04 | ERPHSYRPT ---
- History of Present Illness Time Seen by Provider: 02/28/24 22:04 Source: patient Exam Limitations: no limitations Physician History: The patient, who recently underwent stent placement in the leg on the , presented with redness and swelling in the same leg starting from Thursday morning. They also noticed a new rash characterized by small red dots. The patient reported significant pain in the leg, describing it as "miserable." The pain seemed to increase with swelling. Despite the discomfort, the patient had not taken any pain medication. The patient was on Plavix post-procedure, but no other blood thinners were reported. They denied any known allergies or issues with platelets. The patient also reported no knowledge of the exact location of the stents. The entry point for the procedure was on the right side. The patient's symptoms and recent medical intervention suggest a possible complication from the stent placement, such as infection or thrombosis, which needs further investigation. Method of Injury: other (stents placed in left leg on 02/23) Occurred: yesterday Quality: sharpness, stabbing Severity of Pain-Max: severe Severity of Pain-Current: severe Lower Extremities Pain: leg: left Modifying Factors: Worsens With: movement Associated Symptoms: none Allergies/Adverse Reactions: No Known Drug Allergies Allergy (Verified 09/28/23 23:32) Home Medications: Clopidogrel Bisulfate [Plavix] 75 mg PO HS 04/09/12 [History] Ropinirole HCl 8 mg PO HS 01/28/15 [History] Atorvastatin Calcium [Lipitor 40Mg] 40 mg PO HS 06/28/17 [History] Venlafaxine HCl ER 75 mg [Effexor XR 75 MG] 150 mg PO HS 06/20/18 [History] Gabapentin [Neurontin ] 300 mg PO TID 09/28/23 [History] Hydroxyzine HCl 25 mg [Atarax 25 mg] 25 mg PO HS 09/28/23 [History] Losartan Potassium 50 mg [Cozaar 50 MG] 50 mg PO HS 09/28/23 [History] Nebivolol HCl 20 mg PO BID 09/28/23 [History] carvediloL [Coreg] 25 mg PO BID 09/28/23 [History] Hx Tetanus, Diphtheria Vaccination/Date Given: Yes Hx Influenza Vaccination/Date Given: Yes Hx Pneumococcal Vaccination/Date Given: No - Review of Systems All Other Systems: Reviewed and Negative - Past Medical History Pertinent Past Medical History: Yes Neurological History: No Pertinent History ENT History: No Pertinent History Cardiac History: Coronary Artery Disease, High Cholesterol, Hypertension, Myocardial Infarction ([place]) Respiratory History: COPD Endocrine Medical History: No Pertinent History Musculoskeletal History: No Pertinent History GI Medical History: GERD, Gallbladder Disease History: No Pertinent History Psycho-Social History: Depression Female Reproductive Disorders: No Pertinent History Other Medical History: PSH: L WRIST ORIF X 2, L RTC REPAIR,. CARDIAC STENTS, GALL BLADDER SURGERY. PMH: CURRENT SMOKER - Past Surgical History Past Surgical History: Yes Neuro Surgical History: No Pertinent History Cardiac: Cardiac Catheterization, Cardiac Stent Respiratory: No Pertinent History Gastrointestinal: Cholecystectomy Genitourinary: No Pertinent History Musculoskeletal: Orthopedic Surgery Female Surgical History: Hysterectomy Other Surgical History: left knee scope. toe nail removel. shoulder surgery. thumb surgery. CARDIAC STENTS X2 - Social History Smoking Status: Current every day smoker How long have you smoked: 30 Exposure to second hand smoke: Yes Drug Use: none Patient Lives Alone: Yes - Nursing Vital Signs Nursing Vital Signs: Initial Vital Signs Temperature 98.9 F 02/28/24 22:07 Pulse Rate 102 H 02/28/24 22:07 Respiratory Rate 18 02/28/24 22:07 Blood Pressure 162/62 02/28/24 22:07 O2 Sat by Pulse Oximetry 96 02/28/24 22:07 Pain Scale Pain Intensity 10 - Physical Exam General Appearance: no apparent distress Legs Exam: left leg: pain, soft tissue tenderness, swelling, other (erythema, petichial rash from knee to foot) Neuro/Tendon Exam: normal sensation, normal motor functions, normal tendon functions, responds to pain Mental Status Exam: alert, oriented x 3, cooperative Skin Exam: petechiae, No cyanosis, No embolic lesions SpO2 Interpretation: normal O2 Delivery: Room Air Comments: 2+ DP, TP pulse on left - Course Nursing assessment & vital signs reviewed: Yes - Radiology Ultrasound Exam Left Venous Lower Extremity Ultrasound: tele radiology report, Other (No DVT) Ordered Tests: Active Orders 24 hr Category Date Time Status Strip Presser STAT Care 02/28/24 22:11 Active IV Insertion STAT Care 02/28/24 22:11 Active Pulse Oximetry (ED) STAT Care 02/28/24 22:11 Active VENOUS UNILAT/LIMITED EXTREMIT [US] Stat Exams 02/28/24 22:05 Taken CBC W DIFF Stat Lab 02/28/24 22:10 Completed CMP Stat Lab 02/28/24 23:00 Completed Erythrocyte Sedimentation Rate Stat Lab 02/28/24 22:11 Completed Lactic Acid Stat Lab 02/28/24 22:30 Completed PROTIME WITH INR Stat Lab 02/28/24 23:01 Completed PTT Stat Lab 02/28/24 23:01 Completed Medication Summary Discontinued Medications Generic Name Dose Route Start Last Admin Trade Name Freq PRN Reason Stop Dose Admin Enoxaparin Sodium 60 mg 02/28/24 22:13 02/28/24 22:49 Enoxaparin Sodium 60 Mg/0.6 Ml Syringe SQ 02/28/24 22:14 60 mg STAT ONE Administration Ceftriaxone Sodium 1 gm in 100 mls @ 200 mls/hr 02/28/24 22:12 02/28/24 22:47 Rocephin 1 Gm / 100 Ml Nacl IV 02/28/24 22:41 200 ml/hr STAT ONE 200 mls/hr Administration Ceftriaxone Sodium Confirm 02/28/24 22:44 Rocephin 1 Gm / 100 Ml Nacl Administered 02/28/24 22:45 Dose 1 gm in 100 mls @ ud IV .STK-MED ONE Morphine Sulfate 2 mg 02/28/24 22:14 02/28/24 22:47 Morphine Sulfate 2 Mg/Ml Inj IV 02/28/24 22:15 2 mg STAT ONE Administration Morphine Sulfate Confirm 02/28/24 22:44 Morphine Sulfate 2 Mg/Ml Inj Administered 02/28/24 22:45 Dose 2 mg .ROUTE .STK-MED ONE Lab/Rad Data: Laboratory Result Diagrams 02/28/24 22:10 02/28/24 23:00 Laboratory Results 02/28/24 02/28/24 02/28/24 Range/Units 23:01 23:00 22:30 WBC (3.98-10.04) x10^3/uL RBC (3.93-5.22) x10^6/uL Hgb (11.2-15.7) g/dL Hct (34.1-44.9) % MCV (79.4-94.8) fL MCH (25.6-32.2) pg MCHC (32.2-35.5) g/dL RDW (11.7-14.4) % Plt Count (182-369) x10^3/uL MPV (9.4-12.3) fL Gran % (34.0-71.1) % Immature Gran % (Auto) (0.001-0.429) % Nucleat RBC Rel Count (0.00-0.2) % Eos # (Auto) (0.04-0.36) x10^3/uL Immature Gran # (Auto) (0.001-0.031) x10^3u/L Absolute Lymphs (auto) (1.18-3.74) x10^3/uL Absolute Monos (auto) (0.24-0.86) x10^3/uL Absolute Nucleated RBC (0.00-0.012) x10^3u/L Lymphocytes % (19.3-51.7) % Monocytes % (4.7-12.5) % Eosinophils % (0.7-5.8) % Basophils % (0.1-1.2) % Absolute Granulocytes (1.56-6.13) x10^3/uL Basophils # (0.01-0.08) x10^3/uL ESR (0-20) mm/hr PT 9.8 (9.4-12.5) SECONDS INR 0.89 (0.8-3.0) APTT 26.7 (25.1-36.5) SECONDS Sodium 137 (135-145) mmol/L Potassium 4.6 (3.5-5.1) mmol/L Chloride 105 (98-107) mmol/L Carbon Dioxide 27 (22-30) mmol/L Anion Gap 9.5 (5-15) MEQ/L BUN 18 H (7-17) mg/dL Creatinine 0.98 (0.52-1.04) mg/dL Estimated GFR 62.9 ML/MIN Glucose 90 (74-106) mg/dL Lactic Acid 2.0 (0.4-2.0) Calcium 9.0 (8.4-10.2) mg/dL Total Bilirubin 0.50 (0.2-1.3) mg/dL AST 25 (14-36) U/L ALT 16 (0-35) U/L Alkaline Phosphatase 82 (38-126) U/L Serum Total Protein 6.4 (6.3-8.2) g/dL Albumin 3.7 (3.5-5.0) g/dL 02/28/24 02/28/24 Range/Units 22:11 22:10 WBC 6.0 (3.98-10.04) x10^3/uL RBC 3.81 L (3.93-5.22) x10^6/uL Hgb 12.7 (11.2-15.7) g/dL Hct 38.5 (34.1-44.9) % MCV 101.0 H (79.4-94.8) fL MCH 33.3 H (25.6-32.2) pg MCHC 33.0 (32.2-35.5) g/dL RDW 12.5 (11.7-14.4) % Plt Count 189 (182-369) x10^3/uL MPV 9.2 L (9.4-12.3) fL Gran % 54.9 (34.0-71.1) % Immature Gran % (Auto) 0.8 H (0.001-0.429) % Nucleat RBC Rel Count 0.0 (0.00-0.2) % Eos # (Auto) 0.36 (0.04-0.36) x10^3/uL Immature Gran # (Auto) 0.05 H (0.001-0.031) x10^3u/L Absolute Lymphs (auto) 1.62 (1.18-3.74) x10^3/uL Absolute Monos (auto) 0.61 (0.24-0.86) x10^3/uL Absolute Nucleated RBC 0.00 (0.00-0.012) x10^3u/L Lymphocytes % 27.1 (19.3-51.7) % Monocytes % 10.2 (4.7-12.5) % Eosinophils % 6.0 H (0.7-5.8) % Basophils % 1.0 (0.1-1.2) % Absolute Granulocytes 3.27 (1.56-6.13) x10^3/uL Basophils # 0.06 (0.01-0.08) x10^3/uL ESR 18 (0-20) mm/hr PT (9.4-12.5) SECONDS INR (0.8-3.0) APTT (25.1-36.5) SECONDS Sodium (135-145) mmol/L Potassium (3.5-5.1) mmol/L Chloride (98-107) mmol/L Carbon Dioxide (22-30) mmol/L Anion Gap (5-15) MEQ/L BUN (7-17) mg/dL Creatinine (0.52-1.04) mg/dL Estimated GFR ML/MIN Glucose (74-106) mg/dL Lactic Acid (0.4-2.0) Calcium (8.4-10.2) mg/dL Total Bilirubin (0.2-1.3) mg/dL AST (14-36) U/L ALT (0-35) U/L Alkaline Phosphatase (38-126) U/L Serum Total Protein (6.3-8.2) g/dL Albumin (3.5-5.0) g/dL - Progress Progress: improved Progress Note: Post-stent placement complications Redness, swelling, and pain in the leg started on Thursday after stent placement on the . New rash with red dots. No known allergies. Currently on Plavix. No history of platelet issues. Doppler sounds normal. -Order leg ultrasound to rule out deep vein thrombosis. -Start empiric antibiotics pending lab results. -Consider additional pain management. -Give loading dose of Lovenox for empiric DVT tx 02/28/24 23:34 No DVT on US Platelets 189, Hx 12.7, ESR wnl No other abnormality on labs noted. Will D/c home with Keflex 500mg TID x 10 days and [place] 5-325 Q6H disp 12 tabs. Call vascular surgeon tomorrow for f/u Counseled pt/family regarding: lab results, diagnosis, need for follow-up, rad results Medical Desision Making - Diagnostic Testing Diagnostic test were ordered, analyzed, and reviewed by me: Yes Radiological Interpretation: Interpreted by me, Reviewed by me, Teleradiologist Report - Risk of complications The pt has a mod risk of morbidity or mortality based on: Need for prescription drug management - Departure Departure Disposition: Home Clinical Impression: Status post arterial stent, Left leg cellulitis, Left leg swelling, Left leg pain Condition: Good Critical Care Time: No Referrals: JASVIR CALIXTO NP [Primary Care Provider] - Follow up/PCP as directed Instructions: Angioplasty and stents for peripheral artery disease Prescriptions: Cephalexin Mh 500 mg [Keflex 500 mg] 500 mg PO TID 10 Days #21 cap
[2024-02-28 22:27] VITALS: RESP 18; TEMP 98.9; O2SAT 96
[2024-02-28 22:36] LABS: Absolute Neutrophil Ct (ANC) 3.27 x10^3/uL (1.56-6.13); Basophil (Absolute #) 0.06 x10^3/uL (0.01-0.08); Eosinophil (Absolute #) 0.36 x10^3/uL (0.04-0.36); Hematocrit 38.5 % (34.1-44.9); Hemoglobin 12.7 g/dL (11.2-15.7); IMMATURE GRAN # 0.05 x10^3u/L (0.001-0.031); IMMATURE GRAN % 0.8 % (0.001-0.429); Lymphocyte (Absolute #) 1.62 x10^3/uL (1.18-3.74); Lymphocytes % 27.1 % (19.3-51.7); Mean Corpuscular Hemoglobin 33.3 pg (25.6-32.2); Mean Platelet Volume 9.2 fL (9.4-12.3); Monocyte (Absolute #) 0.61 x10^3/uL (0.24-0.86); Monocytes % 10.2 % (4.7-12.5); Neutrophil % 54.9 % (34.0-71.1); Platelet Count 189 x10^3/uL (182-369); Red Blood Count 3.81 x10^6/uL (3.93-5.22); Red Cell Distribution Width 12.5 % (11.7-14.4)
[2024-02-28] MEDS ORDERED: MORPHINE SULFATE 2 MG INJ ONE (22:44)
[2024-02-28] MEDS ORDERED: ROCEPHIN 1 GM / 100 ML NaCl 1 GM/100 ML IVPB IV ONE (22:44)
[2024-02-28] MEDS: ROCEPHIN 1 GM / 100 ML NaCl 1 GM/100 ML IVPB IV ONE (22:47)
[2024-02-28] MEDS: MORPHINE SULFATE 2 MG INJ IV ONE (22:47)
[2024-02-28 22:49] LABS: ALBUMIN 3.7 g/dL (3.5-5.0); BILIRUBIN,TOTAL 0.5 mg/dL (0.2-1.3); Creatinine 1 0.98 mg/dL (0.52-1.04); EST GLOMERULAR FILTRATION RATE 62.9 ML/MIN; Total Protein 6.4 g/dL (6.3-8.2)
[2024-02-28] MEDS: ENOXAPARIN SODIUM SQ ONE (22:49)
[2024-02-28 23:18] LABS: INR 0.89 (0.8-3.0); PROTIME 9.8 SECONDS (9.4-12.5); PTT 26.7 SECONDS (25.1-36.5)
[2024-02-28 23:41] VITALS: BP 166/68; PULSE 98
--- NOTE | 2024-02-29 08:46 | XRAY ---
Indication: Left leg swelling. Two-dimensional sonogram and color Doppler imaging major venous vessels left leg performed. Comparison: December 28, 2023 No thrombus seen in the examined deep venous vessels left leg including greater saphenous vein. Veins demonstrate normal compressibility. Venous waveforms are normal with and without augmentation. Impression: Left leg continues to be negative for DVT. Comment: Preliminary report was given.
== END 2024-02-28 23:48 | disposition home or self-care (01) ==
LOC: ED 21:50
DX: L03.116 Cellulitis of left lower limb (principal); R22.42 Localized swelling, mass and lump, left lower limb; M79.605 Pain in left leg; Z95.820 Peripheral vascular angioplasty status with implants and grafts; E78.5 Hyperlipidemia, unspecified; I10 Essential (primary) hypertension; Z79.02 Long term (current) use of antithrombotics/antiplatelets; Z79.899 Other long term (current) drug therapy; Z72.0 Tobacco use
CPT/HCPCS: 36000; 36415; 80053; 83605; 85025; 85610; 85652; 85730; 93041; 93971; 94760; 96365; 96372; 96374; 99284; J0696; J1650; J2270

== ENCOUNTER 2024-07-30 03:41 | Observation (INO) | payer MEDICARE, OTHER ==
[2024-07-30] MEDS ORDERED: DUONEB 0.5-3 MG/3 ml Neb IH ONE (04:29)
[2024-07-30] MEDS: DUONEB 0.5-3 MG/3 ml Neb IH ONE (04:31)
[2024-07-30 04:40] LABS: Absolute Neutrophil Ct (ANC) 6.61 x10^3/uL (1.56-6.13); BASOPHIL % 0.4 % (0.1-1.2); Basophil (Absolute #) 0.04 x10^3/uL (0.01-0.08); Eosinophil % 0.3 % (0.7-5.8); Eosinophil (Absolute #) 0.03 x10^3/uL (0.04-0.36); Hematocrit 37.6 % (34.1-44.9); Hemoglobin 12.4 g/dL (11.2-15.7); IMMATURE GRAN # 0.08 x10^3u/L (0.001-0.031); IMMATURE GRAN % 0.9 % (0.001-0.429); Lymphocyte (Absolute #) 1.23 x10^3/uL (1.18-3.74); Lymphocytes % 13.7 % (19.3-51.7); Mean Platelet Volume 9.8 fL (9.4-12.3); Monocyte (Absolute #) 0.97 x10^3/uL (0.24-0.86); Monocytes % 10.8 % (4.7-12.5); Neutrophil % 73.9 % (34.0-71.1); Platelet Count 187 x10^3/uL (182-369); Red Blood Count 3.76 x10^6/uL (3.93-5.22); Red Cell Distribution Width 12.7 % (11.7-14.4)
[2024-07-30] MEDS ORDERED: Zofran 4 MG/2 ML VIAL ONE (04:46)
[2024-07-30] MEDS ORDERED: SUBLIMAZE 100 MCG/2 ML ONE (04:47)
[2024-07-30] MEDS ORDERED: Zithromax 500 MG/ 250 ML NaCl Premix 500 MG/250 ML IVPB IV ONE (04:47)
[2024-07-30] MEDS: SUBLIMAZE 100 MCG/2 ML IV ONE (04:50)
[2024-07-30] MEDS: Zofran 4 MG/2 ML VIAL IV ONE (04:50)
--- NOTE | 2024-07-30 04:50 | ERPHSYRPT ---
- History of Present Illness Time Seen by Provider: 07/30/24 04:44 Source: patient Exam Limitations: no limitations Patient Subjective Stated Complaint: pt states she has had a nonproductive cough for a few days. tonight when she got up to go to bathroom has pain in rt rib s.04/21 Triage Nursing Assessment: pt alert and oriented, answers questions approp. pt arrive per ambualnce and transfers to stretcher with assist of 3. skin warm and dry. exp wheezes noted throughout. coarse lung sounds to right. Physician History: 68 years old female with history of COPD, tobacco abuse presented in the ER with little over a week history of increasing cough with worsening and productive of yellow-green sputum. Patient reports she woke up earlier go to the bathroom, was coughing really hard and had sharp shooting pain in the right lower chest and hurts to move and take a deep breath. Patient denies any feeling of popping sensations. No fever or chills reported. Patient was hypoxic with saturation around 87% on room air, currently on 2 L oxygen with sats in the low 90s. Allergies/Adverse Reactions: No Known Drug Allergies Allergy (Verified 07/30/24 04:08) Home Medications: Clopidogrel Bisulfate [Plavix] 75 mg PO HS 04/09/12 [History] Ropinirole HCl 8 mg PO HS 01/28/15 [History] Atorvastatin Calcium [Lipitor 40Mg] 40 mg PO HS 06/28/17 [History] Venlafaxine HCl ER 75 mg [Effexor XR 75 MG] 150 mg PO HS 06/20/18 [History] Gabapentin [Neurontin ] 300 mg PO TID 09/28/23 [History] Hydroxyzine HCl 25 mg [Atarax 25 mg] 25 mg PO HS 09/28/23 [History] Losartan Potassium 50 mg [Cozaar 50 MG] 50 mg PO HS 09/28/23 [History] Nebivolol HCl 20 mg PO BID 09/28/23 [History] carvediloL [Coreg] 25 mg PO BID 09/28/23 [History] Hx Tetanus, Diphtheria Vaccination/Date Given: Yes Hx Influenza Vaccination/Date Given: Yes Hx Pneumococcal Vaccination/Date Given: No Immunizations Up to Date: Yes Travel Risk - International Travel Have you traveled outside of the country in past 3 weeks: No - Emerging Infectious Disease Are you exhibiting symptoms associated with any current EIDs: Yes Symptoms: Cough: New Onset - Review of Systems Constitutional: No Symptoms Eyes: No Symptoms Ears, Nose, & Throat: No Symptoms Respiratory: Cough, Dyspnea, Wheezing Cardiac: No Symptoms Abdominal/Gastrointestinal: No Symptoms Genitourinary Symptoms: No Symptoms Musculoskeletal: No Symptoms Skin: No Symptoms Neurological: No Symptoms Psychological: No Symptoms Endocrine: No Symptoms - Past Medical History Pertinent Past Medical History: Yes Neurological History: No Pertinent History ENT History: No Pertinent History Cardiac History: Coronary Artery Disease, High Cholesterol, Hypertension, 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 CARDIAC STENTS, GALL BLADDER SURGERY. PMH: CURRENT SMOKER - Past Surgical History Past Surgical History: Yes Neuro Surgical History: No Pertinent History Cardiac: Cardiac Catheterization, Cardiac Stent Respiratory: No Pertinent History Gastrointestinal: Cholecystectomy Genitourinary: No Pertinent History Musculoskeletal: Orthopedic Surgery Female Surgical History: Hysterectomy Other Surgical History: left knee scope. toe nail removel. shoulder surgery. thumb surgery. CARDIAC STENTS X2. lt leg- 2 stents - Social History Smoking Status: Current every day smoker How long have you smoked: 35 Exposure to second hand smoke: Yes Drug Use: none Patient Lives Alone: Yes - Social Determinants of Health Will the patient participate in the screening: Declined to provide - Nursing Vital Signs Nursing Vital Signs: Initial Vital Signs Temperature 99.9 F 07/30/24 03:45 Pulse Rate 98 H 07/30/24 03:45 Respiratory Rate 18 07/30/24 03:45 Blood Pressure 103/68 07/30/24 03:45 O2 Sat by Pulse Oximetry 87 L 07/30/24 03:45 Pain Scale Pain Intensity 2 - Physical Exam General Appearance: no apparent distress, alert Eye Exam: PERRL/EOMI Ears, Nose, Throat Exam: hearing grossly normal, normal ENT inspection, pharyngeal erythema Neck Exam: normal inspection, non-tender, supple, full range of motion Respiratory Exam: diminished breath sounds, crackles/rales, rhonchi, wheezing Cardiovascular/Chest Exam: normal heart sounds, regular rate/rhythm Abdominal/Gastrointestinal Exam: soft, normal bowel sounds, tenderness Extremity Exam: non-tender, normal range of motion Neurologic Exam: alert, oriented x 3, cooperative Skin Exam: normal color SpO2 Interpretation: hypoxic, O2 applied SpO2: 92 O2 Delivery: Nasal Cannula - Course EKG Interpreted by Me: RATE ([id number]), Sinus Rhythm, NORMAL AXIS, prolonged QT interval, NORMAL QRS Ordered Tests: Active Orders 24 hr Category Date Time Status EKG-ER Only STAT Care 07/30/24 04:18 Active CHEST WITHOUT CONTRAST [CT] Stat Exams 07/30/24 04:18 Completed BLOOD CULTURE Stat Lab 07/30/24 04:50 Received CBC W DIFF Stat Lab 07/30/24 04:23 Completed CMP Stat Lab 07/30/24 04:23 Completed TROPONIN Q4H Lab 07/30/24 04:23 Completed TROPONIN Q4H Lab 07/30/24 08:30 Ordered TROPONIN Q4H Lab 07/30/24 12:30 Ordered Respiratory Therapy Assessment DAILY RT 07/30/24 04:32 Completed Medication Summary Discontinued Medications Generic Name Dose Route Start Last Admin Trade Name Freq PRN Reason Stop Dose Admin Albuterol/Ipratropium 3 ml 07/30/24 04:21 07/30/24 04:31 Ipratropium/Albuterol Sulfate 3 Ml Ampul.Neb IH 07/30/24 04:22 3 ml STAT ONE Administration Albuterol/Ipratropium Confirm 07/30/24 04:29 Ipratropium/Albuterol Sulfate 3 Ml Ampul.Neb Administered 07/30/24 04:30 Dose 3 ml IH .STK-MED ONE Fentanyl Citrate 50 mcg 07/30/24 04:44 07/30/24 04:50 Fentanyl Citrate 100 Mcg/2 Ml* Vial IV 07/30/24 04:45 50 mcg STAT ONE Administration Fentanyl Citrate Confirm 07/30/24 04:47 Fentanyl Citrate 100 Mcg/2 Ml* Vial Administered 07/30/24 04:48 Dose 100 mcg .ROUTE .STK-MED ONE Azithromycin 500 mg in 250 mls @ 250 mls/hr 07/30/24 04:44 07/30/24 04:51 Zithromax 500 Mg/ 250 Ml Nacl Premix IV 07/30/24 05:43 250 mls/hr STAT STA 250 mls/hr Administration Ceftriaxone Sodium 2 gm in 100 mls @ 200 mls/hr 07/30/24 04:44 07/30/24 05:53 Rocephin 2 Gm/100 Ml Nacl IV 07/30/24 05:13 Infused STAT ONE Infusion Azithromycin Confirm 07/30/24 04:47 Zithromax 500 Mg/ 250 Ml Nacl Premix Administered 07/30/24 04:48 Dose 500 mg in 250 mls @ ud IV .STK-MED ONE Ceftriaxone Sodium Confirm 07/30/24 04:52 Rocephin 1 Gm / 100 Ml Nacl Administered 07/30/24 04:53 Dose 1 gm in 100 mls @ ud IV .STK-MED ONE Ceftriaxone Sodium Confirm 07/30/24 04:53 Rocephin 2 Gm/100 Ml Nacl Administered 07/30/24 04:54 Dose 2 gm in 100 mls @ ud IV .STK-MED ONE Ondansetron HCl 4 mg 07/30/24 04:44 07/30/24 04:50 Ondansetron Hcl 4 Mg/2 Ml Vial IV 07/30/24 04:45 4 mg STAT ONE Administration Ondansetron HCl Confirm 07/30/24 04:46 Ondansetron Hcl 4 Mg/2 Ml Vial Administered 07/30/24 04:47 Dose 4 mg .ROUTE .STK-MED ONE Lab/Rad Data: Laboratory Result Diagrams 07/30/24 04:23 07/30/24 04:23 Laboratory Results 07/30/24 07/30/24 07/30/24 Range/Units 04:30 04:23 04:23 WBC (3.98-10.04) x10^3/uL RBC (3.93-5.22) x10^6/uL Hgb (11.2-15.7) g/dL Hct (34.1-44.9) % MCV (79.4-94.8) fL MCH (25.6-32.2) pg MCHC (32.2-35.5) g/dL RDW (11.7-14.4) % Plt Count (182-369) x10^3/uL MPV (9.4-12.3) fL Gran % (34.0-71.1) % Immature Gran % (Auto) (0.001-0.429) % Nucleat RBC Rel Count (0.00-0.2) % Eos # (Auto) (0.04-0.36) x10^3/uL Immature Gran # (Auto) (0.001-0.031) x10^3u/L Absolute Lymphs (auto) (1.18-3.74) x10^3/uL Absolute Monos (auto) (0.24-0.86) x10^3/uL Absolute Nucleated RBC (0.00-0.012) x10^3u/L Lymphocytes % (19.3-51.7) % Monocytes % (4.7-12.5) % Eosinophils % (0.7-5.8) % Basophils % (0.1-1.2) % Absolute Granulocytes (1.56-6.13) x10^3/uL Basophils # (0.01-0.08) x10^3/uL Sodium 138 (135-145) mmol/L Potassium 3.9 (3.5-5.1) mmol/L Chloride 105 (98-107) mmol/L Carbon Dioxide 25 (22-30) mmol/L Anion Gap 12.6 (5-15) MEQ/L BUN 25 H (7-17) mg/dL Creatinine 1.15 H (0.52-1.04) mg/dL Estimated GFR 51.9 ML/MIN Glucose 117 H (74-106) mg/dL Calcium 8.9 (8.4-10.2) mg/dL Total Bilirubin 0.50 (0.2-1.3) mg/dL AST 31 (14-36) U/L ALT 24 (0-35) U/L Alkaline Phosphatase 143 H (38-126) U/L Troponin I < 0.012 (0.000-0.033) ng/mL Serum Total Protein 6.2 L (6.3-8.2) g/dL Albumin 3.4 L (3.5-5.0) g/dL Influenza Type A Ag NEGATIVE (NEGATIVE) Influenza Type B Ag NEGATIVE (NEGATIVE) RSV (PCR) NEGATIVE (NEGATIVE) SARS-CoV-2 (PCR) NEGATIVE (NEGATIVE) 07/30/24 Range/Units 04:23 WBC 9.0 (3.98-10.04) x10^3/uL RBC 3.76 L (3.93-5.22) x10^6/uL Hgb 12.4 (11.2-15.7) g/dL Hct 37.6 (34.1-44.9) % MCV 100.0 H (79.4-94.8) fL MCH 33.0 H (25.6-32.2) pg MCHC 33.0 (32.2-35.5) g/dL RDW 12.7 (11.7-14.4) % Plt Count 187 (182-369) x10^3/uL MPV 9.8 (9.4-12.3) fL Gran % 73.9 H (34.0-71.1) % Immature Gran % (Auto) 0.9 H (0.001-0.429) % Nucleat RBC Rel Count 0.0 (0.00-0.2) % Eos # (Auto) 0.03 L (0.04-0.36) x10^3/uL Immature Gran # (Auto) 0.08 H (0.001-0.031) x10^3u/L Absolute Lymphs (auto) 1.23 (1.18-3.74) x10^3/uL Absolute Monos (auto) 0.97 H (0.24-0.86) x10^3/uL Absolute Nucleated RBC 0.00 (0.00-0.012) x10^3u/L Lymphocytes % 13.7 L (19.3-51.7) % Monocytes % 10.8 (4.7-12.5) % Eosinophils % 0.3 L (0.7-5.8) % Basophils % 0.4 (0.1-1.2) % Absolute Granulocytes 6.61 H (1.56-6.13) x10^3/uL Basophils # 0.04 (0.01-0.08) x10^3/uL Sodium (135-145) mmol/L Potassium (3.5-5.1) mmol/L Chloride (98-107) mmol/L Carbon Dioxide (22-30) mmol/L Anion Gap (5-15) MEQ/L BUN (7-17) mg/dL Creatinine (0.52-1.04) mg/dL Estimated GFR ML/MIN Glucose (74-106) mg/dL Calcium (8.4-10.2) mg/dL Total Bilirubin (0.2-1.3) mg/dL AST (14-36) U/L ALT (0-35) U/L Alkaline Phosphatase (38-126) U/L Troponin I (0.000-0.033) ng/mL Serum Total Protein (6.3-8.2) g/dL Albumin (3.5-5.0) g/dL Influenza Type A Ag (NEGATIVE) Influenza Type B Ag (NEGATIVE) RSV (PCR) (NEGATIVE) SARS-CoV-2 (PCR) (NEGATIVE) - Progress Progress: improved, re-examined Air Movement: fair Progress Note: 07/30/24 06:15 68 years old female with multiple medical problems including CAD with stenting, COPD, hypertension/hyperlipidemia is evaluated for worsening cough with some difficulty breathing and right lower chest wall pain after repeated coughing prior to arrival. Patient has reproducibility of pain with palpation/movements in the right lower chest and some deep breathing. She was hypoxic on room air 87% and currently on 2 L oxygen with saturation of 92%. She is given neb treatment and steroid, workup showed normal white count, chemistries fairly unremarkable and negative troponins. CT chest showed right-sided consolidation and small pleural effusion. She is given a dose of Rocephin and Zithromax. I believe patient would benefit with IV antibiotics, steroids and frequent neb treatments with admission to the floor. Discussed with hospitalist Dr. Moody and patient is being admitted. I have shared the results of workup, treatment and plan of admission with patient which she understands and agrees. Blood Culture(s) Obtained: Yes Antibiotics given: Yes Discussed with Dr.: Other (Dr. Moody hospitalist) Will see patient in: hospital (observation) Medical Desision Making - Discussion of managment Care discussed with:: hospitalist Reviewed:: Test results Agreed on:: Treatment plan, place in obs Will see patient: in hospital - Diagnostic Testing Diagnostic test were ordered, analyzed, and reviewed by me: Yes Radiological Interpretation: Reviewed by me, Teleradiologist Report - Risk of complications The pt has a mod risk of morbidity or mortality based on: Need for prescription drug management The pt has a high risk of morbidity or mortality based on: Decision regarding hospitilization or escalation of hosp level of care - Departure Departure Disposition: Observation Clinical Impression: Acute hypoxic respiratory failure, Pneumonia, COPD exacerbation Condition: Stable Critical Care Time: No Referrals: [facility] [employer] [Primary Care Provider] - Follow up/PCP as directed Instructions: Chronic Obstructive Pulmonary Disease
[2024-07-30] MEDS: Zithromax 500 MG/ 250 ML NaCl Premix 500 MG/250 ML IVPB IV STA (04:51)
[2024-07-30] MEDS ORDERED: ROCEPHIN 1 GM / 100 ML NaCl 0 GM/0 ML IVPB IV ONE (04:52)
[2024-07-30] MEDS: ROCEPHIN 2 GM/100 ML NACL 2 GM/100 ML IVPB IV ONE (04:53)
[2024-07-30] MEDS ORDERED: ROCEPHIN 2 GM/100 ML NACL 2 GM/100 ML IVPB IV ONE (04:53)
[2024-07-30 04:55] LABS: ALBUMIN 3.4 g/dL (3.5-5.0); ANION GAP 12.6 MEQ/L (5-15); BILIRUBIN,TOTAL 0.5 mg/dL (0.2-1.3); Calcium 8.9 mg/dL (8.4-10.2); Creatinine 1 1.15 mg/dL (0.52-1.04); EST GLOMERULAR FILTRATION RATE 51.9 ML/MIN; Potassium 3.9 mmol/L (3.5-5.1); Total Protein 6.2 g/dL (6.3-8.2)
[2024-07-30 05:07] LABS: INFLUENZA A NEGATIVE (NEGATIVE); INFLUENZA B NEGATIVE (NEGATIVE); RESPIRATORY SYNCTIAL VIRUS NEGATIVE (NEGATIVE); SARS-CoV-2 Xpert Express NEGATIVE (NEGATIVE)
--- NOTE | 2024-07-30 05:46 | XRAY ---
CLINICAL HISTORY: COUGH/RIB PAIN COMPARISON: None. TECHNIQUE: Contiguous axial images were obtained from the neck base through the upper abdomen without contrast. In addition, sagittal and coronal reconstructions were performed to potentially increase the sensitivity for the detection of disease. CT scan was performed according to ALARA (as low as reasonable achievable). FINDINGS: Diffuse centrilobular emphysema is noted involving both the lungs. Multiple patchy confluent consolidations are noted involving superior and basal segment of right lower lobe. Minimal synpneumonic right sided pleural effusion is seen. Rest of both lungs are clear. The central airways are patent. There are no pleural effusions. No pneumothorax is seen. Evaluation of the mediastinum and ezekiel is limited due to the lack of intravenous contrast. No axillary or mediastinal adenopathy is identified. The thyroid is unremarkable. The heart, aorta, and pulmonary arteries are of normal size and configuration. There are coronary artery and aortic atherosclerotic calcifications. No pericardial effusion is identified. Imaged portions of the upper abdomen are unremarkable. No aggressive appearing osseous lesions are identified. IMPRESSION: Diffuse centrilobular emphysema is noted involving both the lungs. Multiple patchy confluent consolidations are noted involving superior and basal segment of right lower lobe. Minimal synpneumonic right sided pleural effusion is seen. Electronically Signed by: Jaleel Cobian MD. (07/30/2024 05:42:35 EST)
[2024-07-30] MEDS ORDERED: Sterile H2O 10 ml IJ ONE (06:23)
[2024-07-30] MEDS: solu-MEDROL 125 MG, Sterile H2O 10 ml 2 ML IV ONE (06:24)
[2024-07-30] MEDS ORDERED: solu-MEDROL ONE (06:24)
[2024-07-30] MEDS ORDERED: APRESOLINE 20 MG/ML INJ IV PRN (09:47)
--- NOTE | 2024-07-30 09:54 | PCM.HP ---
History of Present Illness - Chief Complaint Chief Complaint: Pneumonia Date: 07/30/24 History of Present Illness: is a 68 year old female with PMHX of COPD, tobacco abuse, hyperlipidemia, HTN, CAD, [place], GERD, depression, and restless leg syndrome. She presented in the ER with little over a week history of increasing dry cough. Patient reports she woke up earlier go to the bathroom, was coughing really hard and had sharp shooting pain in the right lower chest and hurts to move and take a deep breath. Patient denies any feeling of popping sensations. No fever or chills reported. Patient was hypoxic with saturation around 87% on room air, currently on 2 L oxygen with sats in the low 90s. Started on IV antibiotics and steroids and admitted for pneumonia and dehydration. She denies any further concerns at this time. - Review of Systems Constitutional: No Fever, No Chills Eyes: No Symptoms Ears, Nose, & Throat: No Symptoms, Throat Pain Respiratory: Cough, Short Of Breath Cardiac: No Chest Pain, No Edema, No Syncope Abdominal/Gastrointestinal: No Abdominal Pain, No Nausea, No Vomiting, No Diarrhea Genitourinary Symptoms: No Dysuria Musculoskeletal: No Back Pain, No Neck Pain Skin: No Rash Neurological: No Dizziness, No Focal Weakness, No Sensory Changes Psychological: No Symptoms Endocrine: No Symptoms Hematologic/Lymphatic: No Symptoms Immunological/Allergic: No Symptoms Medications & Allergies Home Medications: Home Medication List Clopidogrel Bisulfate [Plavix] 75 mg PO HS 04/09/12 [History Confirmed 07/30/24] Ropinirole HCl 8 mg PO HS 01/28/15 [History Confirmed 07/30/24] Atorvastatin Calcium [Lipitor 40Mg] 40 mg PO HS 06/28/17 [History Confirmed 07/30/24] Hydroxyzine HCl 25 mg [Atarax 25 mg] 25 mg PO HS 09/28/23 [History Confirmed 07/30/24] Losartan Potassium 50 mg [Cozaar 50 MG] 50 mg PO HS 09/28/23 [History Confirmed 07/30/24] Nebivolol HCl 20 mg PO BID 09/28/23 [History Confirmed 07/30/24] carvediloL [Coreg] 25 mg PO BID 09/28/23 [History Confirmed 07/30/24] Gabapentin 800 mg PO TID 07/30/24 [History Confirmed 07/30/24] Spironolactone 25 mg [Aldactone 25 MG] 1 tab PO BID 07/30/24 [History Confirmed 07/30/24] Allergies/Adverse Reactions: Allergies Allergy/AdvReac Type Severity Reaction Status Date / Time No Known Drug Allergies Allergy Verified 07/30/24 04:08 - Past Medical History Past Medical History: Yes Neurological History: No Pertinent History ENT History: Cataracts Cardiac History: Coronary Artery Disease, High Cholesterol, Hypertension, Myocardial Infarction ([place]) Respiratory History: COPD Endocrine Medical History: No Pertinent History Musculoskelatal History: No Pertinent History GI Medical History: GERD, Gallbladder Disease History: No Pertinent History Pyscho-Social History: Depression Reproductive Disorders: Other Comment: PSH: L WRIST ORIF X 2, L RTC REPAIR,. CARDIAC STENTS, GALL BLADDER SURGERY. tumor which is why she had a hysterectomy. PMH: CURRENT SMOKER - Past Surgical History Past Surgical History: Yes Neuro Surgical History: No Pertinent History Cardiac History: Cardiac Catheterization, Cardiac Stent Respiratory Surgery: No Pertinent History GI Surgical History: Cholecystectomy Genitourinary Surgical Hx: No Pertinent History Musculskeletal Surgical Hx: Orthopedic Surgery Female Surgical History: Hysterectomy Other Surgical History: left knee scope. toe nail removel. shoulder surgery. thumb surgery. CARDIAC STENTS X2. stents in left leg. lt leg- 2 stents - Social History Smoking Status: Current every day smoker How long have you smoked: 35 Exposure to second hand smoke: Yes Alcohol: None Drug Use: none - Social Determinants of Health Will the patient participate in the screening: Yes Do you worry about a steady place to live?: No Do you have any problems with any of the following?: No known problems In the past 12 months,have you had to go without utilities?: No Have you or anyone in your house had to go without enough: No Transportation Issues: No Has anyone in your support network made you feel unsafe?: No Does the patient want assistance with any of the above?: No - Physical Exam Vital Signs: Vital Signs - 24 hr Temp Pulse Resp BP BP BP Pulse Ox 07/30/24 09:42 91 L 07/30/24 08:44 98.4 F 97 H 20 175/76 89 L 07/30/24 08:26 98.4 F 97 H 20 175/76 89 L 07/30/24 07:30 96 H 23 130/67 91 L 07/30/24 07:00 97 H 29 H 119/66 92 L 07/30/24 06:30 94 H 26 H 141/75 94 L 07/30/24 06:19 92 L 07/30/24 06:12 98 H 23 132/67 93 L 07/30/24 06:11 97 H 22 132/67 94 L 07/30/24 04:42 86 18 92 L 07/30/24 04:00 97 H 21 139/74 92 L 07/30/24 03:46 102 H 30 H 103/68 94 L 07/30/24 03:45 99.9 F 98 H 22 103/68 87 L General Appearance: no apparent distress, alert Neurologic Exam: alert, oriented x 3, cooperative, normal mood/affect, nml cerebellar function, nml station & gait, sensation nml, No motor deficits Eye Exam: PERRL/EOMI, eyes nml inspection Ears, Nose, Throat Exam: normal ENT inspection, TMs normal, pharynx normal, moist mucous membranes Neck Exam: normal inspection, non-tender, supple, full range of motion Respiratory Exam: normal breath sounds, lungs clear, crackles/rales (BLLE), No respiratory distress Cardiovascular Exam: regular rate/rhythm, normal heart sounds, normal peripheral pulses Gastrointestinal/Abdomen Exam: soft, normal bowel sounds, No tenderness, No mass Back Exam: normal inspection, normal range of motion, No CVA tenderness, No vertebral tenderness Extremity Exam: normal inspection, normal range of motion, pelvis stable Skin Exam: normal color, warm, dry, No rash Lymphatic Exam: No adenopathy Results - Labs Lab/Micro Results: Lab Results-Last 24 Hours 07/30/24 07/30/24 07/30/24 Range/Units 04:23 04:23 04:23 WBC 9.0 (3.98-10.04) x10^3/uL RBC 3.76 L (3.93-5.22) x10^6/uL Hgb 12.4 (11.2-15.7) g/dL Hct 37.6 (34.1-44.9) % MCV 100.0 H (79.4-94.8) fL MCH 33.0 H (25.6-32.2) pg MCHC 33.0 (32.2-35.5) g/dL RDW 12.7 (11.7-14.4) % Plt Count 187 (182-369) x10^3/uL MPV 9.8 (9.4-12.3) fL Gran % 73.9 H (34.0-71.1) % Immature Gran % (Auto) 0.9 H (0.001-0.429) % Nucleat RBC Rel Count 0.0 (0.00-0.2) % Eos # (Auto) 0.03 L (0.04-0.36) x10^3/uL Immature Gran # (Auto) 0.08 H (0.001-0.031) x10^3u/L Absolute Lymphs (auto) 1.23 (1.18-3.74) x10^3/uL Absolute Monos (auto) 0.97 H (0.24-0.86) x10^3/uL Absolute Nucleated RBC 0.00 (0.00-0.012) x10^3u/L Lymphocytes % 13.7 L (19.3-51.7) % Monocytes % 10.8 (4.7-12.5) % Eosinophils % 0.3 L (0.7-5.8) % Basophils % 0.4 (0.1-1.2) % Absolute Granulocytes 6.61 H (1.56-6.13) x10^3/uL Basophils # 0.04 (0.01-0.08) x10^3/uL Sodium 138 (135-145) mmol/L Potassium 3.9 (3.5-5.1) mmol/L Chloride 105 (98-107) mmol/L Carbon Dioxide 25 (22-30) mmol/L Anion Gap 12.6 (5-15) MEQ/L BUN 25 H (7-17) mg/dL Creatinine 1.15 H (0.52-1.04) mg/dL Estimated GFR 51.9 ML/MIN Glucose 117 H (74-106) mg/dL Calcium 8.9 (8.4-10.2) mg/dL Total Bilirubin 0.50 (0.2-1.3) mg/dL AST 31 (14-36) U/L ALT 24 (0-35) U/L Alkaline Phosphatase 143 H (38-126) U/L Troponin I < 0.012 (0.000-0.033) ng/mL Serum Total Protein 6.2 L (6.3-8.2) g/dL Albumin 3.4 L (3.5-5.0) g/dL Influenza Type A Ag (NEGATIVE) Influenza Type B Ag (NEGATIVE) RSV (PCR) (NEGATIVE) SARS-CoV-2 (PCR) (NEGATIVE) 07/30/24 Range/Units 04:30 WBC (3.98-10.04) x10^3/uL RBC (3.93-5.22) x10^6/uL Hgb (11.2-15.7) g/dL Hct (34.1-44.9) % MCV (79.4-94.8) fL MCH (25.6-32.2) pg MCHC (32.2-35.5) g/dL RDW (11.7-14.4) % Plt Count (182-369) x10^3/uL MPV (9.4-12.3) fL Gran % (34.0-71.1) % Immature Gran % (Auto) (0.001-0.429) % Nucleat RBC Rel Count (0.00-0.2) % Eos # (Auto) (0.04-0.36) x10^3/uL Immature Gran # (Auto) (0.001-0.031) x10^3u/L Absolute Lymphs (auto) (1.18-3.74) x10^3/uL Absolute Monos (auto) (0.24-0.86) x10^3/uL Absolute Nucleated RBC (0.00-0.012) x10^3u/L Lymphocytes % (19.3-51.7) % Monocytes % (4.7-12.5) % Eosinophils % (0.7-5.8) % Basophils % (0.1-1.2) % Absolute Granulocytes (1.56-6.13) x10^3/uL Basophils # (0.01-0.08) x10^3/uL Sodium (135-145) mmol/L Potassium (3.5-5.1) mmol/L Chloride (98-107) mmol/L Carbon Dioxide (22-30) mmol/L Anion Gap (5-15) MEQ/L BUN (7-17) mg/dL Creatinine (0.52-1.04) mg/dL Estimated GFR ML/MIN Glucose (74-106) mg/dL Calcium (8.4-10.2) mg/dL Total Bilirubin (0.2-1.3) mg/dL AST (14-36) U/L ALT (0-35) U/L Alkaline Phosphatase (38-126) U/L Troponin I (0.000-0.033) ng/mL Serum Total Protein (6.3-8.2) g/dL Albumin (3.5-5.0) g/dL Influenza Type A Ag NEGATIVE (NEGATIVE) Influenza Type B Ag NEGATIVE (NEGATIVE) RSV (PCR) NEGATIVE (NEGATIVE) SARS-CoV-2 (PCR) NEGATIVE (NEGATIVE) - Radiology Impressions Radiology Exams & Impressions: Radiology Procedures Category Date Time Status CHEST WITHOUT CONTRAST [CT] Stat Exams 07/30/24 04:18 Completed - Other Procedures and Tests Respiratory Therapy 07/30/24 04:32 Respiratory Therapy Assessment DAILY 07/30/24 08:20 Oxygen Nasal Cannula 2 lpm Respiratory Therapy Consult ONCE 07/30/24 09:46 Incentive Spirometry Q1H Respiratory MDI BID Assessment/Plan (1) Pneumonia Current Visit: Yes Status: Acute Assessment & Plan: - Ceftriaxone, Azithromycin, Duonebs, Steriods, Advair - On 2lNC 91%- baseline RA - CXR: IMPRESSION: Diffuse centrilobular emphysema is noted involving both the lungs. Multiple patchy confluent consolidations are noted involving superior and basal segment of right lower lobe. Minimal synpneumonic right sided pleural effusion is seen. - CBC. CMP reviewed - Incentive spirometer - Tele - BC X2 pending - Flu/COVID/RSV negative Code(s): J18.9 - PNEUMONIA, UNSPECIFIED ORGANISM (2) COPD exacerbation Current Visit: Yes Status: Acute Onset Date: ~08/11/18 Assessment & Plan: - See above plan for pneumonia Code(s): J44.1 - CHRONIC OBSTRUCTIVE PULMONARY DISEASE W (ACUTE) EXACERBATION (3) Acute hypoxic respiratory failure Current Visit: Yes Status: Acute Assessment & Plan: - 2:2 pneumonia- see above plan - 2lNC 91%- BL RA - RT eval and treat Code(s): J96.01 - ACUTE RESPIRATORY FAILURE WITH HYPOXIA (4) PETRONA (acute kidney injury) Current Visit: Yes Status: Acute Assessment & Plan: - Creat 1.15- baseline 0.98 - Hold nephrotoxic meds Code(s): N17.9 - ACUTE KIDNEY FAILURE, UNSPECIFIED (5) Restless leg syndrome Current Visit: Yes Status: Chronic Assessment & Plan: - Continue requip and gabapentin (6) Hyperlipidemia Current Visit: Yes Status: Chronic Assessment & Plan: - not currently taking statin - lipid panel pending Code(s): E78.5 - HYPERLIPIDEMIA, UNSPECIFIED (7) Depression Current Visit: Yes Status: Chronic Assessment & Plan: - continue home med Code(s): F32.A - DEPRESSION, UNSPECIFIED (8) HTN (hypertension) Current Visit: Yes Status: Chronic Assessment & Plan: - Resume Coreg - Hold losartan and spirolactone- for PETRONA - consider restarting tomorrow - Monitor - Hydralizine PRN Code(s): I10 - ESSENTIAL (PRIMARY) HYPERTENSION (9) Smoker Current Visit: Yes Status: Chronic Assessment & Plan: - advised cessation - refused nicotine patch VTE: Lovenox PPI: Protonix Next of KIN: Child- Eliceo [place] [phone] D/C plan: 1-2 days Code status: Full Code(s): F17.200 - NICOTINE DEPENDENCE, UNSPECIFIED, UNCOMPLICATED
[2024-07-30] MEDS ORDERED: Sodium Chloride 0.9% 1000 ML 1,000 ML IV SCH (10:00)
[2024-07-30] MEDS ORDERED: NON-FORMULARY ITEM (Carvedilol [Coreg] 25 MG Tablet) PO SCH (10:00)
[2024-07-30] MEDS ORDERED: NON-FORMULARY ITEM (Gabapentin [Gabapentin] 800 MG Tablet) PO SCH (10:00)
[2024-07-30] MEDS ORDERED: NEBIVOLOL HCL 10 MG PO SCH (10:00)
[2024-07-30] MEDS ORDERED: Bystolic 5 MG PO SCH (10:00)
[2024-07-30] MEDS ORDERED: ZITHROMAX IV*** 0 MG in Sodium Chloride 0.9% 250 ML 250 ML IV SCH (10:00)
[2024-07-30] MEDS ORDERED: MELATONIN PO PRN (10:03)
[2024-07-30] MEDS: COREG 12.5 MG PO SCH ×2 (10:54→16:48)
[2024-07-30] MEDS: ROCEPHIN 1 GM / 100 ML NaCl 1 GM/100 ML IVPB IV SCH ×2 (10:54→21:26)
[2024-07-30] MEDS: Neurontin PO SCH (10:54)
[2024-07-30] MEDS: solu-MEDROL 20 MG, Sterile H2O 10 ml 1 ML IV SCH (10:55)
[2024-07-30] MEDS: Zithromax 500 MG/ 250 ML NaCl Premix 500 MG/250 ML IVPB IV SCH ×2 (11:15→22:10)
[2024-07-30] MEDS: DUONEB 0.5-3 MG/3 ml Neb IH SCH (13:55)
[2024-07-30] MEDS: HYDROCODONE-CHLORPHEN ER SUSP PO PRN (16:43)
[2024-07-30] MEDS: Advair Hfa 115/21 Common canister IH SCH (19:13)
[2024-07-30] MEDS: REQUIP 2MG TAB PO SCH (21:26)
[2024-07-30] MEDS ORDERED: ROPINIROLE HCL 4 MG PO SCH (22:00)
[2024-07-30] MEDS ORDERED: ATARAX 25 MG PO SCH (22:00)
[2024-07-30] MEDS ORDERED: PLAVIX Tablet PO SCH (22:00)
[2024-07-30] MEDS ORDERED: LIPITOR 40MG PO SCH (22:00)
[2024-07-30] MEDS ORDERED: ZOCOR 20MG PO SCH (22:00)
[2024-07-31 06:29] LABS: Hematocrit 36.8 % (34.1-44.9); Hemoglobin 11.8 g/dL (11.2-15.7); Mean Cell Volume 100.3 fL (79.4-94.8); Mean Corpuscular Hemoglobin 32.2 pg (25.6-32.2); Mean Corpuscular Hgb Concent. 32.1 g/dL (32.2-35.5); Platelet Count 200 x10^3/uL (182-369); Red Blood Count 3.67 x10^6/uL (3.93-5.22); Red Cell Distribution Width 12.6 % (11.7-14.4); White Blood Count 13.2 x10^3/uL (3.98-10.04)
[2024-07-31 06:43] LABS: ALBUMIN 3.7 g/dL (3.5-5.0); ANION GAP 12.6 MEQ/L (5-15); BILIRUBIN,TOTAL 0.3 mg/dL (0.2-1.3); Creatinine 1 1.13 mg/dL (0.52-1.04); Total Protein 7.1 g/dL (6.3-8.2)
[2024-07-31] MEDS ORDERED: NON-FORMULARY ITEM (Venlafaxine Hcl [Venlafaxine Hcl Er] 150 MG Tab.Er.24) PO SCH (10:00)
--- NOTE | 2024-07-31 10:58 | PCM.NOTE ---
Date and Time: 07/31/24 1052 Subjective Assessment: 07/30/24 is a 68 year old female with PMHX of COPD, tobacco abuse, hyperlipidemia, HTN, CAD, [place], GERD, depression, and restless leg syndrome. She presented in the ER with little over a week history of increasing dry cough. Patient reports she woke up earlier go to the bathroom, was coughing really hard and had sharp shooting pain in the right lower chest and hurts to move and take a deep breath. Patient denies any feeling of popping sensations. No fever or chills reported. Patient was hypoxic with saturation around 87% on room air, currently on 2 L oxygen with sats in the low 90s. Started on IV antibiotics and steroids and admitted for pneumonia and dehydration. She denies any further concerns at this time. 07/31/24 Pt resting in bed. She states she is feeling much better today. She continues to reuire 3lNC at 91%, baseline RA. Pt states she was to have Oxygen in the past per her PCP but her insurance would not pay for this. Will have case management discuss with pt tomorrow as she will likely need at d/c. When ready to d/c she will need RT to eval for home O2. Continue IV antibiotics, steroids, duonebs, advair for COPD/ pneumonia. Will start IVF for dehydration. Pt denies CP, SOB, abd. pain, N/V/D. May likely d/c tomorrow. - Review of Systems Constitutional: No Fever, No Chills Eyes: No Symptoms Ears, Nose, & Throat: No Symptoms Respiratory: No Cough, No Short Of Breath Cardiac: No Chest Pain, No Edema, No Syncope Abdominal/Gastrointestinal: No Abdominal Pain, No Nausea, No Vomiting, No Diarrhea Genitourinary Symptoms: No Dysuria Musculoskeletal: No Back Pain, No Neck Pain Skin: No Rash Neurological: No Dizziness, No Focal Weakness, No Sensory Changes Psychological: No Symptoms Endocrine: No Symptoms Hematologic/Lymphatic: No Symptoms Immunological/Allergic: No Symptoms Objective Exam General Appearance: no apparent distress, alert Neurologic Exam: alert, oriented x 3, cooperative, normal mood/affect, nml cerebellar function, sensation nml, No motor deficits Skin Exam: normal color, warm, dry Eye Exam: PERRL, EOMI, eyes nml inspection Ears, Nose, Throat Exam: normal ENT inspection, pharynx normal, moist mucous membranes Neck Exam: normal inspection, non-tender, supple, full range of motion Respiratory Exam: normal breath sounds, lungs clear, No respiratory distress Cardiovascular Exam: regular rate/rhythm, normal heart sounds Gastrointestinal/Abdomen Exam: soft, No tenderness, No mass Extremity Exam: normal inspection, normal range of motion Back Exam: normal inspection, normal range of motion, No CVA tenderness, No vertebral tenderness Pelvic Exam: deferred Rectal Exam: deferred Objective Data Vital Signs: Vital Signs - 24 hr Temp Pulse Resp BP Pulse Ox 07/31/24 07:03 78 18 91 L 07/31/24 07:00 96.9 F 78 16 123/58 96 07/31/24 03:00 98.1 F 75 15 142/63 91 L 07/31/24 00:39 75 14 87 L 07/30/24 23:00 97.1 F 70 16 117/57 92 L 07/30/24 19:35 96.7 F 72 20 122/58 93 L 07/30/24 19:10 71 14 96 07/30/24 17:49 72 91 L 07/30/24 16:00 96.5 F 71 16 115/57 89 L 07/30/24 14:00 74 18 93 L 07/30/24 11:24 97.5 F 90 19 130/60 89 L Pain Assessment - Last Documented Pain Intensity 0 Pain Scale Used 0-10 Pain Scale Intake and Output: Intake & Output 07/28/24 07/29/24 07/30/24 07/31/24 11:59 11:59 11:59 11:59 Intake Total 240 1500 Balance 240 1500 Weight 60.8 kg Lab Results: Lab Results-Last 24 Hours 07/30/24 07/31/24 07/31/24 Range/Units 13:30 04:00 06:27 WBC 13.2 H (3.98-10.04) x10^3/uL RBC 3.67 L (3.93-5.22) x10^6/uL Hgb 11.8 (11.2-15.7) g/dL Hct 36.8 (34.1-44.9) % MCV 100.3 H (79.4-94.8) fL MCH 32.2 (25.6-32.2) pg MCHC 32.1 L (32.2-35.5) g/dL RDW 12.6 (11.7-14.4) % Plt Count 200 (182-369) x10^3/uL MPV 10.0 (9.4-12.3) fL Sodium (135-145) mmol/L Potassium (3.5-5.1) mmol/L Chloride (98-107) mmol/L Carbon Dioxide (22-30) mmol/L Anion Gap (5-15) MEQ/L BUN (7-17) mg/dL Creatinine (0.52-1.04) mg/dL Estimated GFR ML/MIN Glucose (74-106) mg/dL Calcium (8.4-10.2) mg/dL Total Bilirubin (0.2-1.3) mg/dL AST (14-36) U/L ALT (0-35) U/L Alkaline Phosphatase (38-126) U/L Troponin I < 0.012 (0.000-0.033) ng/mL Serum Total Protein (6.3-8.2) g/dL Albumin (3.5-5.0) g/dL Triglycerides 87 (30-150) mg/dL Cholesterol 119 (50-200) mg/dL LDL Cholesterol 83 (30-100) mg/dL HDL Cholesterol 20 L (40-60) mg/dL Heart Disease Risk Ratio 6.0 / Range/Units 06:27 WBC (3.98-10.04) x10^3/uL RBC (3.93-5.22) x10^6/uL Hgb (11.2-15.7) g/dL Hct (34.1-44.9) % MCV (79.4-94.8) fL MCH (25.6-32.2) pg MCHC (32.2-35.5) g/dL RDW (11.7-14.4) % Plt Count (182-369) x10^3/uL MPV (9.4-12.3) fL Sodium 141 (135-145) mmol/L Potassium 4.0 (3.5-5.1) mmol/L Chloride 107 (98-107) mmol/L Carbon Dioxide 25 (22-30) mmol/L Anion Gap 12.6 (5-15) MEQ/L BUN 39 H (7-17) mg/dL Creatinine 1.13 H (0.52-1.04) mg/dL Estimated GFR 53.0 ML/MIN Glucose 138 H (74-106) mg/dL Calcium 9.0 (8.4-10.2) mg/dL Total Bilirubin 0.30 (0.2-1.3) mg/dL AST 41 H (14-36) U/L ALT 32 (0-35) U/L Alkaline Phosphatase 118 (38-126) U/L Troponin I (0.000-0.033) ng/mL Serum Total Protein 7.1 (6.3-8.2) g/dL Albumin 3.7 (3.5-5.0) g/dL Triglycerides (30-150) mg/dL Cholesterol (50-200) mg/dL LDL Cholesterol (30-100) mg/dL HDL Cholesterol (40-60) mg/dL Heart Disease Risk Ratio Radiology Exams: Radiology Procedures Category Date Time Status CHEST WITHOUT CONTRAST [CT] Stat Exams 07/30/24 04:18 Completed Assessment/Plan (1) Pneumonia Current Visit: Yes Status: Acute Code(s): J18.9 - PNEUMONIA, UNSPECIFIED ORGANISM (2) COPD exacerbation Current Visit: Yes Status: Acute Onset Date: ~08/11/18 Code(s): J44.1 - CHRONIC OBSTRUCTIVE PULMONARY DISEASE W (ACUTE) EXACERBATION (3) Acute hypoxic respiratory failure Current Visit: Yes Status: Acute Code(s): J96.01 - ACUTE RESPIRATORY FAILURE WITH HYPOXIA (4) PETRONA (acute kidney injury) Current Visit: Yes Status: Acute Code(s): N17.9 - ACUTE KIDNEY FAILURE, UNSPECIFIED (5) Restless leg syndrome Current Visit: Yes Status: Chronic (6) Hyperlipidemia Current Visit: Yes Status: Chronic Code(s): E78.5 - HYPERLIPIDEMIA, UNSPECIFIED (7) Depression Current Visit: Yes Status: Chronic Code(s): F32.A - DEPRESSION, UNSPECIFIED (8) HTN (hypertension) Current Visit: Yes Status: Chronic Code(s): I10 - ESSENTIAL (PRIMARY) HYPERTENSION (9) Smoker Current Visit: Yes Status: Chronic Assessment & Plan: (1) Pneumonia Current Visit: Yes Status: Acute Assessment & Plan: - Ceftriaxone, Azithromycin, Duonebs, Steriods, Advair - On 2lNC 91%- baseline RA - CXR: IMPRESSION: Diffuse centrilobular emphysema is noted involving both the lungs. Multiple patchy confluent consolidations are noted involving superior and basal segment of right lower lobe. Minimal synpneumonic right sided pleural effusion is seen. - CBC. CMP reviewed - Incentive spirometer - Tele - BC X2 pending - Flu/COVID/RSV negative 07/31 - CBC, CMP reviewed - on 3lNC 91%- BL RA - When ready to d/c will need RT eval for home O2 - WBC 13.2- increased likely 2:2 steroids Code(s): J18.9 - PNEUMONIA, UNSPECIFIED ORGANISM (2) COPD exacerbation Current Visit: Yes Status: Acute Onset Date: ~08/11/18 Assessment & Plan: - See above plan for pneumonia Code(s): J44.1 - CHRONIC OBSTRUCTIVE PULMONARY DISEASE W (ACUTE) EXACERBATION (3) Acute hypoxic respiratory failure Current Visit: Yes Status: Acute Assessment & Plan: - 2:2 pneumonia- see above plan - 2lNC 91%- BL RA - RT eval and treat 07/31 - 3lNC 91% Code(s): J96.01 - ACUTE RESPIRATORY FAILURE WITH HYPOXIA (4) PETRONA (acute kidney injury) Current Visit: Yes Status: Acute Assessment & Plan: - Creat 1.15- baseline 0.98 - Hold nephrotoxic meds 07/31 - NS @ 50ml/hr started - Creat 1.13 Code(s): N17.9 - ACUTE KIDNEY FAILURE, UNSPECIFIED (5) Restless leg syndrome Current Visit: Yes Status: Chronic Assessment & Plan: - Continue requip and gabapentin (6) Hyperlipidemia Current Visit: Yes Status: Chronic Assessment & Plan: - not currently taking statin - lipid panel pending Code(s): E78.5 - HYPERLIPIDEMIA, UNSPECIFIED (7) Depression Current Visit: Yes Status: Chronic Assessment & Plan: - continue home med Code(s): F32.A - DEPRESSION, UNSPECIFIED (8) HTN (hypertension) Current Visit: Yes Status: Chronic Assessment & Plan: - Resume Coreg - Hold losartan and spirolactone- for PETRONA - consider restarting tomorrow - Monitor - Hydralizine PRN Code(s): I10 - ESSENTIAL (PRIMARY) HYPERTENSION (9) Smoker Current Visit: Yes Status: Chronic Assessment & Plan: - advised cessation - refused nicotine patch VTE: Lovenox PPI: Protonix Next of KIN: Child- Eliceo [place] [phone] D/C plan: tomorrow? Code status: Full Code(s): F17.200 - NICOTINE DEPENDENCE, UNSPECIFIED, UNCOMPLICATED Code(s): F17.200 - NICOTINE DEPENDENCE, UNSPECIFIED, UNCOMPLICATED
[2024-07-31] MEDS: Protonix 20MG Tablet PO SCH (11:41)
[2024-07-31] MEDS: ENOXAPARIN SODIUM SQ SCH (11:41)
[2024-07-31] MEDS: Effexor XR 75 MG PO SCH (11:41)
[2024-07-31] MEDS: Sodium Chloride 0.9% 1000 ML 1,000 ML IV SCH (11:42)
[2024-08-01 05:06] LABS: Hematocrit 36.5 % (34.1-44.9); Hemoglobin 11.8 g/dL (11.2-15.7); Mean Cell Volume 100.3 fL (79.4-94.8); Mean Corpuscular Hemoglobin 32.4 pg (25.6-32.2); Mean Corpuscular Hgb Concent. 32.3 g/dL (32.2-35.5); Mean Platelet Volume 9.5 fL (9.4-12.3); Platelet Count 244 x10^3/uL (182-369); Red Blood Count 3.64 x10^6/uL (3.93-5.22); Red Cell Distribution Width 12.8 % (11.7-14.4); White Blood Count 12.3 x10^3/uL (3.98-10.04)
--- NOTE | 2024-08-01 05:35 | PCM.NOTE ---
Date and Time: 08/01/24 0532 Subjective Assessment: is a 68 year old female with PMHX of COPD, tobacco abuse, hyperlipidemia, HTN, CAD, IA, GERD, depression, and restless leg syndrome admitted 07/30/24 with pneumonia and dehydration after she presented in the ER with little over a week history of increasing dry cough. Patient reports she woke up earlier go to the bathroom, was coughing really hard and had sharp shooting pain in the right lower chest and hurts to move and take a deep breath. Patient was hypoxic with saturation around 87% on room air, currently on 2 L oxygen with sats in the low 90s. CT chest demonstrating multiple patchy confluent consolidations of the right lower lobe. Started on IV Rocephin/azithromycin, bronchodilators, and solumedrol. Objective Data Vital Signs: Vital Signs - 24 hr Temp Pulse Resp BP Pulse Ox 08/01/24 03:00 77 18 07/31/24 23:02 97.2 F 69 18 147/68 100 07/31/24 19:32 72 20 99 07/31/24 19:30 97.5 F 74 20 138/65 94 L 07/31/24 15:00 97.3 F 75 20 112/57 91 L 07/31/24 13:40 78 18 91 L 07/31/24 11:00 97.8 F 67 18 115/59 91 L 07/31/24 07:03 78 18 91 L 07/31/24 07:00 96.9 F 78 16 123/58 96 Pain Assessment - Last Documented Pain Intensity 0 Pain Scale Used 0-10 Pain Scale Intake and Output: Intake & Output 07/29/24 07/30/24 07/31/24 08/01/24 11:59 11:59 11:59 11:59 Intake Total 240 1500 600 Balance 240 1500 600 Weight 60.8 kg Lab Results: Lab Results-Last 24 Hours 07/31/24 07/31/24 07/31/24 Range/Units 04:00 06:27 06:27 WBC 13.2 H (3.98-10.04) x10^3/uL RBC 3.67 L (3.93-5.22) x10^6/uL Hgb 11.8 (11.2-15.7) g/dL Hct 36.8 (34.1-44.9) % MCV 100.3 H (79.4-94.8) fL MCH 32.2 (25.6-32.2) pg MCHC 32.1 L (32.2-35.5) g/dL RDW 12.6 (11.7-14.4) % Plt Count 200 (182-369) x10^3/uL MPV 10.0 (9.4-12.3) fL Sodium 141 (135-145) mmol/L Potassium 4.0 (3.5-5.1) mmol/L Chloride 107 (98-107) mmol/L Carbon Dioxide 25 (22-30) mmol/L Anion Gap 12.6 (5-15) MEQ/L BUN 39 H (7-17) mg/dL Creatinine 1.13 H (0.52-1.04) mg/dL Estimated GFR 53.0 ML/MIN Glucose 138 H (74-106) mg/dL Calcium 9.0 (8.4-10.2) mg/dL Total Bilirubin 0.30 (0.2-1.3) mg/dL AST 41 H (14-36) U/L ALT 32 (0-35) U/L Alkaline Phosphatase 118 (38-126) U/L Serum Total Protein 7.1 (6.3-8.2) g/dL Albumin 3.7 (3.5-5.0) g/dL Triglycerides 87 (30-150) mg/dL Cholesterol 119 (50-200) mg/dL LDL Cholesterol 83 (30-100) mg/dL HDL Cholesterol 20 L (40-60) mg/dL Heart Disease Risk Ratio 6.0 08/01/24 Range/Units 05:00 WBC 12.3 H (3.98-10.04) x10^3/uL RBC 3.64 L (3.93-5.22) x10^6/uL Hgb 11.8 (11.2-15.7) g/dL Hct 36.5 (34.1-44.9) % MCV 100.3 H (79.4-94.8) fL MCH 32.4 H (25.6-32.2) pg MCHC 32.3 (32.2-35.5) g/dL RDW 12.8 (11.7-14.4) % Plt Count 244 (182-369) x10^3/uL MPV 9.5 (9.4-12.3) fL Sodium (135-145) mmol/L Potassium (3.5-5.1) mmol/L Chloride (98-107) mmol/L Carbon Dioxide (22-30) mmol/L Anion Gap (5-15) MEQ/L BUN (7-17) mg/dL Creatinine (0.52-1.04) mg/dL Estimated GFR ML/MIN Glucose (74-106) mg/dL Calcium (8.4-10.2) mg/dL Total Bilirubin (0.2-1.3) mg/dL AST (14-36) U/L ALT (0-35) U/L Alkaline Phosphatase (38-126) U/L Serum Total Protein (6.3-8.2) g/dL Albumin (3.5-5.0) g/dL Triglycerides (30-150) mg/dL Cholesterol (50-200) mg/dL LDL Cholesterol (30-100) mg/dL HDL Cholesterol (40-60) mg/dL Heart Disease Risk Ratio Assessment/Plan (1) Pneumonia Current Visit: Yes Status: Acute Assessment & Plan: - Ceftriaxone, Azithromycin, Duonebs, Steriods, Advair - On 2lNC 91%- baseline RA - CT chest reviewed with diffuse centrilobular emphysema is noted involving both the lungs. Multiple patchy confluent consolidations are noted involving superior and basal segment of right lower lobe. Minimal synpneumonic right sided pleural effusion is seen. - CBC. CMP reviewed - WBC down-trending at 12.3<13.2 -No fever overnight -Supplemental oxygen with spo2 goal > 91% - Incentive spirometer - Tele - BC X2 pending - Flu/COVID/RSV negative -RT eval for home O2 Code(s): J18.9 - PNEUMONIA, UNSPECIFIED ORGANISM (2) PETRONA (acute kidney injury) Current Visit: Yes Status: Acute Assessment & Plan: - Baseline 0.98 -Avoid nephrotoxic meds - IVF Code(s): N17.9 - ACUTE KIDNEY FAILURE, UNSPECIFIED (3) Acute hypoxic respiratory failure Current Visit: Yes Status: Acute Assessment & Plan: - 2:2 pneumonia- see above plan - RT eval and treat - 3lNC -Baseline RA Code(s): J96.01 - ACUTE RESPIRATORY FAILURE WITH HYPOXIA (4) COPD exacerbation Current Visit: Yes Status: Acute Onset Date: ~08/11/18 Assessment & Plan: - See above plan for pneumonia Code(s): J44.1 - CHRONIC OBSTRUCTIVE PULMONARY DISEASE W (ACUTE) EXACERBATION (5) Depression Current Visit: Yes Status: Chronic Assessment & Plan: - continue home med Code(s): F32.A - DEPRESSION, UNSPECIFIED (6) HTN (hypertension) Current Visit: Yes Status: Chronic Assessment & Plan: - Resume Coreg - Hold losartan and spirolactone- for PETRONA - consider restarting tomorrow - Monitor - Hydralizine PRN Code(s): I10 - ESSENTIAL (PRIMARY) HYPERTENSION (7) Hyperlipidemia Current Visit: Yes Status: Chronic Assessment & Plan: - not currently taking statin - lipid panel pending Code(s): E78.5 - HYPERLIPIDEMIA, UNSPECIFIED (8) Restless leg syndrome Current Visit: Yes Status: Chronic Assessment & Plan: - Continue requip and gabapentin (9) Smoker Current Visit: Yes Status: Chronic Assessment & Plan: - advised cessation - refused nicotine patch VTE: Lovenox PPI: Protonix Next of KIN: Child- Elice[place] [phone] D/C plan: tomorrow? Code status: Full Code(s): F17.200 - NICOTINE DEPENDENCE, UNSPECIFIED, UNCOMPLICATED
[2024-08-01 05:52] LABS: ALBUMIN 3.2 g/dL (3.5-5.0); ANION GAP 8.8 MEQ/L (5-15); BILIRUBIN,TOTAL 0.2 mg/dL (0.2-1.3); Calcium 8.5 mg/dL (8.4-10.2); Creatinine 1 1.06 mg/dL (0.52-1.04); EST GLOMERULAR FILTRATION RATE 57.2 ML/MIN; Potassium 4.5 mmol/L (3.5-5.1); Total Protein 6.4 g/dL (6.3-8.2)
[2024-08-01 10:57] VITALS: BP 138/69; TEMP 97.6
--- NOTE | 2024-08-01 12:37 | PCM.DS ---
Discharge Summary Date of Admission: 07/30/24 08:18 Date of Discharge: 08/01/24 Admitting Physician: RADHA HAYES MD Primary Care Provider: JASVIR CALIXTO Allergies Allergies No Known Drug Allergies Allergy (Verified 07/30/24 04:08) Hospital Summary - Hospital Course Hospital Course: is a 68 year old female with PMHX of COPD, tobacco abuse, hyperlipidemia, HTN, CAD, IA, GERD, depression, and restless leg syndrome admitted 07/30/24 with pneumonia and dehydration after she presented in the ER with little over a week history of increasing dry cough. Patient reports she woke up earlier go to the bathroom, was coughing really hard and had sharp shooting pain in the right lower chest and hurts to move and take a deep breath. Patient was hypoxic with saturation around 87% on room air, currently on [address] chest demonstrating multiple patchy confluent consolidations of the right lower lobe. IP treatment with Rocephin/azithromycin, bronchodilators, and solumedrol. Patient states she has been on home oxygen previously but was taken off due to insurance. She has been requalified and will discharge home with oxygen. Dyspnea and cough have improved. Patient is requesting discharge as she has a dog to take care of at home. Will discharge on cefuroxime and prednisone. Advised close follow up with PCP and pulmonology. Advised smoking cessation and warned of dangers of smoking with oxygen. Discharge Note New Diagnosis: pneumonia New Medications: cefuroxime/prednisone Follow Up: PCP/pulm Results pending: Outpatient testing to order: Latest Assessment & Plan (1) Pneumonia Current Visit: Yes Status: Acute Assessment & Plan: - Ceftriaxone, Azithromycin, Duonebs, Steriods, Advair - On 2lNC 91%- baseline RA - CT chest reviewed with diffuse centrilobular emphysema is noted involving both the lungs. Multiple patchy confluent consolidations are noted involving superior and basal segment of right lower lobe. Minimal synpneumonic right sided pleural effusion is seen. - CBC. CMP reviewed - WBC down-trending at 12.3<13.2 -No fever overnight -Supplemental oxygen with spo2 goal > 91% - Incentive spirometer - Tele - BC X2 pending - Flu/COVID/RSV negative -RT eval for home O2 - qualified Code(s): J18.9 - PNEUMONIA, UNSPECIFIED ORGANISM (2) PETRONA (acute kidney injury) Current Visit: Yes Status: Acute Assessment & Plan: - Baseline 0.98 -Avoid nephrotoxic meds - IVF Code(s): N17.9 - ACUTE KIDNEY FAILURE, UNSPECIFIED (3) Acute hypoxic respiratory failure Current Visit: Yes Status: Acute Assessment & Plan: - 2:2 pneumonia- see above plan - RT eval and treat - 3lNC -Baseline RA Code(s): J96.01 - ACUTE RESPIRATORY FAILURE WITH HYPOXIA (4) COPD exacerbation Current Visit: Yes Status: Acute Onset Date: ~08/11/18 Assessment & Plan: - See above plan for pneumonia Code(s): J44.1 - CHRONIC OBSTRUCTIVE PULMONARY DISEASE W (ACUTE) EXACERBATION (5) Depression Current Visit: Yes Status: Chronic Assessment & Plan: - continue home med Code(s): F32.A - DEPRESSION, UNSPECIFIED (6) HTN (hypertension) Current Visit: Yes Status: Chronic Assessment & Plan: - Resume Coreg - Hold losartan and spirolactone- for PETRONA - consider restarting tomorrow - Monitor - Hydralizine PRN Code(s): I10 - ESSENTIAL (PRIMARY) HYPERTENSION (7) Hyperlipidemia Current Visit: Yes Status: Chronic Assessment & Plan: - not currently taking statin - lipid panel pending Code(s): E78.5 - HYPERLIPIDEMIA, UNSPECIFIED (8) Restless leg syndrome Current Visit: Yes Status: Chronic Assessment & Plan: - Continue requip and gabapentin (9) Smoker Current Visit: Yes Status: Chronic Assessment & Plan: - advised cessation - refused nicotine patch I spent 35 minutes [id number] with the patient on the day of discharge performing discharge exam, discussing hospital stay and discharge instructions with patient and caregivers, preparation of discharge records, prescriptions & referral forms and addressing any questions/concerns the patient had as documented above. - Vitals & Intake/Output Vital Signs: Vital Signs Temperature 97.6 F 08/01/24 10:56 Pulse Rate 71 08/01/24 10:56 Respiratory Rate 16 08/01/24 10:56 Blood Pressure 138/69 08/01/24 10:56 O2 Sat by Pulse Oximetry 92 L 08/01/24 10:56 Intake & Output: Intake & Output 07/30/24 07/31/24 08/01/24 08/02/24 11:59 11:59 11:59 11:59 Intake Total 240 1500 1080 Balance 240 1500 1080 Weight 60.8 kg - Lab Result Diagrams: 08/01/24 05:00 08/01/24 05:00 Lab Results-Last 24 Hrs: Lab Results-Last 24 Hours 08/01/24 08/01/24 Range/Units 05:00 05:00 WBC 12.3 H (3.98-10.04) x10^3/uL RBC 3.64 L (3.93-5.22) x10^6/uL Hgb 11.8 (11.2-15.7) g/dL Hct 36.5 (34.1-44.9) % MCV 100.3 H (79.4-94.8) fL MCH 32.4 H (25.6-32.2) pg MCHC 32.3 (32.2-35.5) g/dL RDW 12.8 (11.7-14.4) % Plt Count 244 (182-369) x10^3/uL MPV 9.5 (9.4-12.3) fL Sodium 141 (135-145) mmol/L Potassium 4.5 (3.5-5.1) mmol/L Chloride 111 H (98-107) mmol/L Carbon Dioxide 26 (22-30) mmol/L Anion Gap 8.8 (5-15) MEQ/L BUN 44 H (7-17) mg/dL Creatinine 1.06 H (0.52-1.04) mg/dL Estimated GFR 57.2 ML/MIN Glucose 117 H (74-106) mg/dL Calcium 8.5 (8.4-10.2) mg/dL Total Bilirubin 0.20 (0.2-1.3) mg/dL AST 61 H (14-36) U/L ALT 51 H (0-35) U/L Alkaline Phosphatase 110 (38-126) U/L Serum Total Protein 6.4 (6.3-8.2) g/dL Albumin 3.2 L (3.5-5.0) g/dL Micro Results-Entire Visit: Microbiology 07/30/24 05:10 Blood Culture - Preliminary Blood - Procedures and Test Procedures and Tests throughout Hospitalization: Therapy Orders & Screens 07/30/24 04:32 Respiratory Therapy Assessment DAILY Comment: 07/30/24 08:20 Oxygen Nasal Cannula 2 lpm Comment: Respiratory Therapy Consult ONCE Comment: Reason For Exam: 07/30/24 09:04 Smoking Cessation Education ONCE Comment: Diagnosis: Pneumonia Smoking Status: Current every day smoker How long have you smoked: 35 Have you smoked in the past 12 months: Yes Approximately how many cigarettes per day: 10/day Do you dip or chew tobacco: No 07/30/24 09:46 Incentive Spirometry UD Comment: Diagnosis: Pneumonia Respiratory MDI BID Comment: Diagnosis: Pneumonia 08/01/24 07:48 Qualify for Home Oxygen ROUTINE Comment: Diagnosis: Pneumonia 08/01/24 08:45 Flutter Therapy UD Comment: Diagnosis: Pneumonia Discharge Exam General Appearance: no apparent distress Neurologic Exam: alert, oriented x 3, cooperative Eye Exam: PERRL Ears, Nose, Throat Exam: normal ENT inspection Neck Exam: normal inspection Respiratory Exam: diminished breath sounds Cardiovascular Exam: regular rate/rhythm, normal heart sounds Gastrointestinal/Abdomen Exam: soft, normal bowel sounds Pelvic Exam: deferred Rectal Exam: deferred Back Exam: normal inspection Extremity Exam: normal inspection Skin Exam: normal color Final Diagnosis/Problem List - Final Discharge Diagnosis/Problem (1) Pneumonia Current Visit: Yes Status: Acute Code(s): J18.9 - PNEUMONIA, UNSPECIFIED ORGANISM (2) PETRONA (acute kidney injury) Current Visit: Yes Status: Acute Code(s): N17.9 - ACUTE KIDNEY FAILURE, UNSPECIFIED (3) Acute hypoxic respiratory failure Current Visit: Yes Status: Resolved Code(s): J96.01 - ACUTE RESPIRATORY FAILURE WITH HYPOXIA (4) COPD exacerbation Current Visit: Yes Status: Acute Onset Date: ~08/11/18 Code(s): J44.1 - CHRONIC OBSTRUCTIVE PULMONARY DISEASE W (ACUTE) EXACERBATION (5) Depression Current Visit: Yes Status: Chronic Code(s): F32.A - DEPRESSION, UNSPECIFIED (6) HTN (hypertension) Current Visit: Yes Status: Chronic Code(s): I10 - ESSENTIAL (PRIMARY) HYPERTENSION (7) Hyperlipidemia Current Visit: Yes Status: Chronic Code(s): E78.5 - HYPERLIPIDEMIA, UNSPECIFIED (8) Restless leg syndrome Current Visit: Yes Status: Chronic (9) Smoker Current Visit: Yes Status: Chronic Code(s): F17.200 - NICOTINE DEPENDENCE, UNSPECIFIED, UNCOMPLICATED - Discharge Discharge Date: 08/01/24 Disposition: Home, Self-Care Condition: Stable Prescriptions: Continue Ropinirole HCl 4 mg PO HS carvediloL [Coreg] 12.5 mg PO BIDWMEALS Hydroxyzine HCl 25 mg [Atarax 25 mg] 50 mg PO HS Gabapentin 800 mg PO TID Venlafaxine HCl [Venlafaxine HCl ER] 150 mg PO DAILY Instructions: Oxygen therapy at home Additional Instructions: WEAR 4L/NC AT ALL TIMES CALL [employer] AT [phone] WHEN YOU LEAVE [facility] SO THEY CAN MEET YOU AT HOME TO DELIVER YOUR HOME CONCENTRATOR Follow up with: JASVIR CALIXTO NP [Primary Care Provider] - 08/10/24 1:15 pm GENIA MARCELINO [CONSULTING PHYSICIAN] - 1 Week
[2024-08-01 13:35] VITALS: PULSE 74; RESP 18; O2SAT 94
== END 2024-08-01 13:56 | disposition home or self-care (01) ==
LOC: ED 03:41 → MED SURG 08:18
PROVIDERS: ADMIT Internal Medicine; ATTEND Internal Medicine
DX: J18.9 Pneumonia, unspecified organism (principal); N17.9 Acute kidney failure, unspecified; J96.01 Acute respiratory failure with hypoxia; J44.1 Chronic obstructive pulmonary disease with (acute) exacerbation; F32.A Depression, unspecified; I10 Essential (primary) hypertension; E78.5 Hyperlipidemia, unspecified; G25.81 Restless legs syndrome; F17.200 Nicotine dependence, unspecified, uncomplicated; I25.10 Atherosclerotic heart disease of native coronary artery without angina pectoris; I25.2 Old myocardial infarction; Z79.01 Long term (current) use of anticoagulants; Z79.899 Other long term (current) drug therapy
CPT/HCPCS: 0241U; 36415; 71250; 80053; 80061; 83721; 84484; 85025; 85027; 87040; 93005; 94640; 94667; 94762; 96374; 96375; 99285; 93268; J0456; J0696; J1650; J2405; J2919; J3010; Q3014; A9270-GY; G0378

== ENCOUNTER 2024-09-03 20:04 | Emergency (ER) | payer MEDICARE, OTHER ==
[2024-09-03 20:21] VITALS: TEMP 98
--- NOTE | 2024-09-03 20:30 | ERPHSYRPT ---
<BEVERLY OBRIEN. - Last Filed: 09/03/24 20:26> - History of Present Illness Historian: patient Exam Limitations: no limitations Patient Subjective Stated Complaint: pt states that she began having chest pain yesterday. pt states that her daughter was having a surgery and began to have chest pressure then. Triage Nursing Assessment: pt ambulated into the er; pt is axo x4; c/o chest pain; pt states 8/10 pain to mid sternum; pt states SOB, no respiratory distress present; pt states she wears 4L O2 at night; clear lung sounds in all lobes; clear apical heart tone; strong alexandra radial pulses; strong alexandra pedal pulses; hypertensive Physician History: Patient's had chest pain for a little over a day. It is substernal described as pressure. She says she feels like somebody sitting on her chest. She has a significant history of coronary vascular disease. She had a AL in 2009 andGot 2 stents at that time. She is on Plavix. She says that the pain gets worse when she coughs as well 2. She says that it is just a chronic tightness in her chest but whenever she coughs it feels a bit more sharp and stabbing.She has not had a cough. She has had no fever or chills. Nothing really makes his symptoms better. Like I said coughing makes it worse. She is not having any dyspnea at this time. Allergies/Adverse Reactions: No Known Drug Allergies Allergy (Verified 07/30/24 04:08) Home Medications: Ropinirole HCl 4 mg PO HS 01/28/15 [History] Hydroxyzine HCl 25 mg [Atarax 25 mg] 50 mg PO HS 09/28/23 [History] carvediloL [Coreg] 12.5 mg PO BIDWMEALS 09/28/23 [History] Gabapentin 800 mg PO TID 07/30/24 [History] Venlafaxine HCl [Venlafaxine HCl ER] 150 mg PO HS 07/30/24 [History] Spironolactone 25 mg [Aldactone 25 MG] 25 mg PO BID 09/03/24 [History] Hx Tetanus, Diphtheria Vaccination/Date Given: Yes Hx Influenza Vaccination/Date Given: No Hx Pneumococcal Vaccination/Date Given: No Travel Risk - International Travel Have you traveled outside of the country in past 3 weeks: No - Emerging Infectious Disease Are you exhibiting symptoms associated with any current EIDs: Yes Symptoms: Shortness of Breath - Review of Systems Constitutional: No Symptoms Respiratory: No Symptoms Cardiac: Chest Pain Abdominal/Gastrointestinal: No Symptoms Genitourinary Symptoms: No Symptoms Musculoskeletal: No Symptoms Skin: No Symptoms Neurological: No Symptoms Psychological: No Symptoms All Other Systems: Reviewed and Negative - Past Medical History Pertinent Past Medical History: Yes Neurological History: No Pertinent History ENT History: Cataracts Cardiac History: Coronary Artery Disease, High Cholesterol, Hypertension, Myocardial Infarction (AL) Respiratory History: COPD Endocrine Medical History: No Pertinent History Musculoskeletal History: No Pertinent History GI Medical History: GERD, Gallbladder Disease History: No Pertinent History Psycho-Social History: Depression Female Reproductive Disorders: Other Other Medical History: PSH: L WRIST ORIF X 2, L RTC REPAIR,. CARDIAC STENTS, GALL BLADDER SURGERY. tumor which is why she had a hysterectomy. PMH: CURRENT SMOKER - Past Surgical History Past Surgical History: Yes Neuro Surgical History: No Pertinent History Cardiac: Cardiac Catheterization, Cardiac Stent Respiratory: No Pertinent History Gastrointestinal: Cholecystectomy Genitourinary: No Pertinent History Musculoskeletal: Orthopedic Surgery Female Surgical History: Hysterectomy Other Surgical History: left knee scope. toe nail removel. shoulder surgery. thumb surgery. CARDIAC STENTS X2. stents in left leg. lt leg- 2 stents - Social History Smoking Status: Current every day smoker How long have you smoked: 35 Exposure to second hand smoke: No Drug Use: none - Social Determinants of Health Will the patient participate in the screening: Yes Do you worry about a steady place to live?: No Do you have any problems with any of the following?: No known problems In the past 12 months,have you had to go without utilities?: No Transportation Issues: No Has anyone in your support network made you feel unsafe?: No Have you or anyone in your house had to go w/o enough food: No - Physical Exam General Appearance: no apparent distress Eye Exam: PERRL/EOMI Ears, Nose, Throat Exam: normal ENT inspection Respiratory Exam: normal breath sounds, chest tenderness, other (Decreased air movement with some mild expiratory wheezes) Cardiovascular Exam: regular rate/rhythm, normal heart sounds Gastrointestinal/Abdomen Exam: soft, normal bowel sounds, No tenderness, No distention Back Exam: normal inspection, normal range of motion Extremity Exam: normal inspection, normal range of motion, No pedal edema Neurologic Exam: alert, oriented x 3, cooperative Skin Exam: normal color, warm, dry SpO2: 95 - Departure Clinical Impression: NSTEMI (non-ST elevated myocardial infarction) Condition: Stable Referrals: JASVIR CALIXTO NP [Primary Care Provider] - Follow up/PCP as directed <RADHA BANUELOS - Last Filed: 09/04/24 14:27> - History of Present Illness Aspirin Treatment Today: 325 mg x 1, provided by ED - Nursing Vital Signs Nursing Vital Signs: Initial Vital Signs Pulse Rate 92 H 09/03/24 20:03 Respiratory Rate 22 09/03/24 20:03 Blood Pressure 180/107 09/03/24 20:03 O2 Sat by Pulse Oximetry 95 09/03/24 20:03 Pain Scale Pain Intensity 2 Ordered Tests: Active Orders 24 hr Category Date Time Status EKG-ER Only STAT Care 09/03/24 20:26 Active CHEST 1 VIEW (PORTABLE) Stat Exams 09/03/24 20:26 Completed CHEST WITH CONTRAST [CT] Stat Exams 09/03/24 21:16 Completed CBC Q48H Lab 09/04/24 05:26 Completed CBC Q48H Lab 09/06/24 06:00 Ordered CBC Q48H Lab 09/08/24 06:00 Ordered CBC Q48H Lab 09/10/24 06:00 Ordered CBC Q48H Lab 09/12/24 06:00 Ordered CBC Q48H Lab 09/14/24 06:00 Ordered CBC Q48H Lab 09/16/24 06:00 Ordered CBC W DIFF Stat Lab 09/03/24 20:30 Completed CMP Stat Lab 09/03/24 20:30 Completed D-DIMER QUANTITATIVE Stat Lab 09/03/24 20:30 Completed PROTIME WITH INR Stat Lab 09/03/24 20:30 Completed PTT Q4H Lab 09/04/24 01:35 Completed PTT Q4H Lab 09/04/24 05:26 Completed PTT Q4H Lab 09/04/24 09:55 Completed PTT Q4H Lab 09/04/24 13:35 Completed PTT Q4H Lab 09/04/24 17:45 Ordered PTT Q4H Lab 09/04/24 21:45 Ordered PTT Q4H Lab 09/05/24 01:45 Ordered PTT Q4H Lab 09/05/24 05:45 Ordered PTT Q4H Lab 09/05/24 09:45 Ordered PTT Q4H Lab 09/05/24 13:45 Ordered PTT Q4H Lab 09/05/24 17:45 Ordered PTT Stat Lab 09/03/24 20:30 Completed TROPONIN Q4H Lab 09/03/24 20:30 Completed TROPONIN Q4H Lab 09/04/24 05:26 Completed TROPONIN Q4H Lab 09/04/24 09:55 Completed TROPONIN Q4H Lab 09/04/24 13:35 Completed TROPONIN Q4H Lab 09/04/24 17:35 Ordered TROPONIN Q4H Lab 09/04/24 21:35 Ordered TROPONIN Stat Lab 09/03/24 23:40 Completed Medication Summary Generic Name Dose Route Start Last Admin Trade Name Yudi PRN Reason Stop Dose Admin Carvedilol 12.5 mg 09/04/24 10:00 09/04/24 01:20 Carvedilol 12.5 Mg Tablet PO 10/04/24 09:59 12.5 mg BID MOISES Administration Heparin Sodium/Dextrose 25,000 units in 250 mls @ 7.38 mls/hr 09/03/24 22:00 09/04/24 06:13 Heparin 25,000 Units/D5w: Use Order Set Tricia IV 10/03/24 21:59 13.5 units/kg/hr .Q24H MOISES 8.3 mls/hr Titration Protocol 12 UNITS/KG/HR Discontinued Medications Generic Name Dose Route Start Last Admin Trade Name Yudi PRN Reason Stop Dose Admin Aspirin 324 mg 09/04/24 13:26 09/04/24 13:35 Aspirin 81 Mg Tab.Chew PO 09/04/24 13:27 324 mg STAT ONE Administration Aspirin Confirm 09/04/24 13:34 Aspirin 81 Mg Tab.Chew Administered 09/04/24 13:35 Dose 324 mg .ROUTE .STK-MED ONE Gabapentin 800 mg 09/04/24 00:58 09/04/24 01:20 Gabapentin 400 Mg Capsule PO 09/04/24 00:59 800 mg ONCE ONE Administration Heparin Sodium (Beef Lung) 3,700 unit 09/03/24 21:32 09/03/24 21:51 Heparin 5000 Units/0.5 Ml 5,000 Unit/0.5 Ml Syr 60 unit/kg (3700 unit) 09/03/24 21:33 3,700 unit IV Administration STAT STA Heparin Sodium (Beef Lung) Confirm 09/03/24 21:42 Heparin 5000 Units/0.5 Ml 5,000 Unit/0.5 Ml Syr Administered 09/03/24 21:43 Dose 5,000 unit .ROUTE .STK-MED ONE Heparin Sodium (Beef Lung) Confirm 09/03/24 21:46 Heparin 5000 Units/0.5 Ml 5,000 Unit/0.5 Ml Syr Administered 09/03/24 21:47 Dose 5,000 unit .ROUTE .STK-MED ONE Heparin Sodium (Beef Lung) Confirm 09/04/24 06:10 Heparin 5000 Units/0.5 Ml 5,000 Unit/0.5 Ml Syr Administered 09/04/24 06:11 Dose 5,000 unit .ROUTE .STK-MED ONE Heparin Sodium (Beef Lung) 1,500 unit 09/04/24 06:12 09/04/24 06:15 Heparin 5000 Units/0.5 Ml 5,000 Unit/0.5 Ml Syr IV 09/04/24 06:13 1,500 unit STAT ONE Administration Hydroxyzine HCl 50 mg 09/04/24 00:59 09/04/24 01:20 Hydroxyzine Hcl 25 Mg Tablet PO 09/04/24 01:00 50 mg STAT ONE Administration Hydroxyzine HCl Confirm 09/04/24 01:05 Hydroxyzine Hcl 25 Mg Tablet Administered 09/04/24 01:06 Dose 50 mg .ROUTE .STK-MED ONE Ropinirole HCl 4 mg 09/04/24 01:00 09/04/24 01:20 Ropinirole Hcl 2 Mg Tablet PO 09/04/24 01:01 4 mg ONCE ONE Administration Venlafaxine HCl 150 mg 09/04/24 01:04 09/04/24 01:20 Venlafaxine Hcl 75 Mg Extended Release Capsule PO 09/04/24 01:05 150 mg STAT ONE Administration Lab/Rad Data: Laboratory Result Diagrams 09/04/24 05:26 09/03/24 20:30 Laboratory Results 09/04/24 09/04/24 09/04/24 Range/Units 13:35 13:35 09:55 WBC (3.98-10.04) x10^3/uL RBC (3.93-5.22) x10^6/uL Hgb (11.2-15.7) g/dL Hct (34.1-44.9) % MCV (79.4-94.8) fL MCH (25.6-32.2) pg MCHC (32.2-35.5) g/dL RDW (11.7-14.4) % Plt Count (182-369) x10^3/uL MPV (9.4-12.3) fL Gran % (34.0-71.1) % Immature Gran % (Auto) (0.001-0.429) % Nucleat RBC Rel Count (0.00-0.2) % Eos # (Auto) (0.04-0.36) x10^3/uL Immature Gran # (Auto) (0.001-0.031) x10^3u/L Absolute Lymphs (auto) (1.18-3.74) x10^3/uL Absolute Monos (auto) (0.24-0.86) x10^3/uL Absolute Nucleated RBC (0.00-0.012) x10^3u/L Lymphocytes % (19.3-51.7) % Monocytes % (4.7-12.5) % Eosinophils % (0.7-5.8) % Basophils % (0.1-1.2) % Absolute Granulocytes (1.56-6.13) x10^3/uL Basophils # (0.01-0.08) x10^3/uL PT (9.4-12.5) SECONDS INR (0.8-3.0) APTT 56.1 H (25.1-36.5) SECONDS D-Dimer (0.0-0.50) mg/L Sodium (135-145) mmol/L Potassium (3.5-5.1) mmol/L Chloride (98-107) mmol/L Carbon Dioxide (22-30) mmol/L Anion Gap (5-15) MEQ/L BUN (7-17) mg/dL Creatinine (0.52-1.04) mg/dL Estimated GFR ML/MIN Glucose (74-106) mg/dL Calcium (8.4-10.2) mg/dL Total Bilirubin (0.2-1.3) mg/dL AST (14-36) U/L ALT (0-35) U/L Alkaline Phosphatase (38-126) U/L Troponin I 0.198 H* 0.222 H* (0.000-0.033) ng/mL Serum Total Protein (6.3-8.2) g/dL Albumin (3.5-5.0) g/dL Influenza Type A Ag (NEGATIVE) Influenza Type B Ag (NEGATIVE) RSV (PCR) (NEGATIVE) SARS-CoV-2 (PCR) (NEGATIVE) Slides for Path Review 09/04/24 09/04/24 09/04/24 Range/Units 09:55 05:26 05:26 WBC 5.1 (3.98-10.04) x10^3/uL RBC 4.07 (3.93-5.22) x10^6/uL Hgb 13.2 (11.2-15.7) g/dL Hct 40.4 (34.1-44.9) % MCV 99.3 H (79.4-94.8) fL MCH 32.4 H (25.6-32.2) pg MCHC 32.7 (32.2-35.5) g/dL RDW 13.2 (11.7-14.4) % Plt Count 143 L (182-369) x10^3/uL MPV 9.8 (9.4-12.3) fL Gran % (34.0-71.1) % Immature Gran % (Auto) (0.001-0.429) % Nucleat RBC Rel Count (0.00-0.2) % Eos # (Auto) (0.04-0.36) x10^3/uL Immature Gran # (Auto) (0.001-0.031) x10^3u/L Absolute Lymphs (auto) (1.18-3.74) x10^3/uL Absolute Monos (auto) (0.24-0.86) x10^3/uL Absolute Nucleated RBC (0.00-0.012) x10^3u/L Lymphocytes % (19.3-51.7) % Monocytes % (4.7-12.5) % Eosinophils % (0.7-5.8) % Basophils % (0.1-1.2) % Absolute Granulocytes (1.56-6.13) x10^3/uL Basophils # (0.01-0.08) x10^3/uL PT (9.4-12.5) SECONDS INR (0.8-3.0) APTT 66.3 H 44.5 H (25.1-36.5) SECONDS D-Dimer (0.0-0.50) mg/L Sodium (135-145) mmol/L Potassium (3.5-5.1) mmol/L Chloride (98-107) mmol/L Carbon Dioxide (22-30) mmol/L Anion Gap (5-15) MEQ/L BUN (7-17) mg/dL Creatinine (0.52-1.04) mg/dL Estimated GFR ML/MIN Glucose (74-106) mg/dL Calcium (8.4-10.2) mg/dL Total Bilirubin (0.2-1.3) mg/dL AST (14-36) U/L ALT (0-35) U/L Alkaline Phosphatase (38-126) U/L Troponin I (0.000-0.033) ng/mL Serum Total Protein (6.3-8.2) g/dL Albumin (3.5-5.0) g/dL Influenza Type A Ag (NEGATIVE) Influenza Type B Ag (NEGATIVE) RSV (PCR) (NEGATIVE) SARS-CoV-2 (PCR) (NEGATIVE) Slides for Path Review YES 09/04/24 09/04/24 09/03/24 Range/Units 05:26 01:35 23:40 WBC (3.98-10.04) x10^3/uL RBC (3.93-5.22) x10^6/uL Hgb (11.2-15.7) g/dL Hct (34.1-44.9) % MCV (79.4-94.8) fL MCH (25.6-32.2) pg MCHC (32.2-35.5) g/dL RDW (11.7-14.4) % Plt Count (182-369) x10^3/uL MPV (9.4-12.3) fL Gran % (34.0-71.1) % Immature Gran % (Auto) (0.001-0.429) % Nucleat RBC Rel Count (0.00-0.2) % Eos # (Auto) (0.04-0.36) x10^3/uL Immature Gran # (Auto) (0.001-0.031) x10^3u/L Absolute Lymphs (auto) (1.18-3.74) x10^3/uL Absolute Monos (auto) (0.24-0.86) x10^3/uL Absolute Nucleated RBC (0.00-0.012) x10^3u/L Lymphocytes % (19.3-51.7) % Monocytes % (4.7-12.5) % Eosinophils % (0.7-5.8) % Basophils % (0.1-1.2) % Absolute Granulocytes (1.56-6.13) x10^3/uL Basophils # (0.01-0.08) x10^3/uL PT (9.4-12.5) SECONDS INR (0.8-3.0) APTT 55.9 H (25.1-36.5) SECONDS D-Dimer (0.0-0.50) mg/L Sodium (135-145) mmol/L Potassium (3.5-5.1) mmol/L Chloride (98-107) mmol/L Carbon Dioxide (22-30) mmol/L Anion Gap (5-15) MEQ/L BUN (7-17) mg/dL Creatinine (0.52-1.04) mg/dL Estimated GFR ML/MIN Glucose (74-106) mg/dL Calcium (8.4-10.2) mg/dL Total Bilirubin (0.2-1.3) mg/dL AST (14-36) U/L ALT (0-35) U/L Alkaline Phosphatase (38-126) U/L Troponin I 0.272 H* 0.277 H* (0.000-0.033) ng/mL Serum Total Protein (6.3-8.2) g/dL Albumin (3.5-5.0) g/dL Influenza Type A Ag (NEGATIVE) Influenza Type B Ag (NEGATIVE) RSV (PCR) (NEGATIVE) SARS-CoV-2 (PCR) (NEGATIVE) Slides for Path Review 02/22/25 02/22/25 02/22/25 Range/Units 20:38 20:30 20:30 WBC (3.98-10.04) x10^3/uL RBC (3.93-5.22) x10^6/uL Hgb (11.2-15.7) g/dL Hct (34.1-44.9) % MCV (79.4-94.8) fL MCH (25.6-32.2) pg MCHC (32.2-35.5) g/dL RDW (11.7-14.4) % Plt Count (182-369) x10^3/uL MPV (9.4-12.3) fL Gran % (34.0-71.1) % Immature Gran % (Auto) (0.001-0.429) % Nucleat RBC Rel Count (0.00-0.2) % Eos # (Auto) (0.04-0.36) x10^3/uL Immature Gran # (Auto) (0.001-0.031) x10^3u/L Absolute Lymphs (auto) (1.18-3.74) x10^3/uL Absolute Monos (auto) (0.24-0.86) x10^3/uL Absolute Nucleated RBC (0.00-0.012) x10^3u/L Lymphocytes % (19.3-51.7) % Monocytes % (4.7-12.5) % Eosinophils % (0.7-5.8) % Basophils % (0.1-1.2) % Absolute Granulocytes (1.56-6.13) x10^3/uL Basophils # (0.01-0.08) x10^3/uL PT 10.0 (9.4-12.5) SECONDS INR 0.91 (0.8-3.0) APTT 25.3 (25.1-36.5) SECONDS D-Dimer (0.0-0.50) mg/L Sodium (135-145) mmol/L Potassium (3.5-5.1) mmol/L Chloride (98-107) mmol/L Carbon Dioxide (22-30) mmol/L Anion Gap (5-15) MEQ/L BUN (7-17) mg/dL Creatinine (0.52-1.04) mg/dL Estimated GFR ML/MIN Glucose (74-106) mg/dL Calcium (8.4-10.2) mg/dL Total Bilirubin (0.2-1.3) mg/dL AST (14-36) U/L ALT (0-35) U/L Alkaline Phosphatase (38-126) U/L Troponin I 0.278 H* (0.000-0.033) ng/mL Serum Total Protein (6.3-8.2) g/dL Albumin (3.5-5.0) g/dL Influenza Type A Ag NEGATIVE (NEGATIVE) Influenza Type B Ag NEGATIVE (NEGATIVE) RSV (PCR) NEGATIVE (NEGATIVE) SARS-CoV-2 (PCR) NEGATIVE (NEGATIVE) Slides for Path Review 09/03/24 09/03/24 09/03/24 Range/Units 20:30 20:30 20:30 WBC 6.1 (3.98-10.04) x10^3/uL RBC 4.32 (3.93-5.22) x10^6/uL Hgb 13.9 (11.2-15.7) g/dL Hct 42.3 (34.1-44.9) % MCV 97.9 H (79.4-94.8) fL MCH 32.2 (25.6-32.2) pg MCHC 32.9 (32.2-35.5) g/dL RDW 13.2 (11.7-14.4) % Plt Count 165 L (182-369) x10^3/uL MPV 10.0 (9.4-12.3) fL Gran % 54.0 (34.0-71.1) % Immature Gran % (Auto) 0.5 H (0.001-0.429) % Nucleat RBC Rel Count 0.0 (0.00-0.2) % Eos # (Auto) 0.17 (0.04-0.36) x10^3/uL Immature Gran # (Auto) 0.03 (0.001-0.031) x10^3u/L Absolute Lymphs (auto) 1.98 (1.18-3.74) x10^3/uL Absolute Monos (auto) 0.60 (0.24-0.86) x10^3/uL Absolute Nucleated RBC 0.00 (0.00-0.012) x10^3u/L Lymphocytes % 32.4 (19.3-51.7) % Monocytes % 9.8 (4.7-12.5) % Eosinophils % 2.8 (0.7-5.8) % Basophils % 0.5 (0.1-1.2) % Absolute Granulocytes 3.30 (1.56-6.13) x10^3/uL Basophils # 0.03 (0.01-0.08) x10^3/uL PT (9.4-12.5) SECONDS INR (0.8-3.0) APTT (25.1-36.5) SECONDS D-Dimer 0.88 H* (0.0-0.50) mg/L Sodium 139 (135-145) mmol/L Potassium 4.3 (3.5-5.1) mmol/L Chloride 101 (98-107) mmol/L Carbon Dioxide 28 (22-30) mmol/L Anion Gap 14.2 (5-15) MEQ/L BUN 17 (7-17) mg/dL Creatinine 1.14 H (0.52-1.04) mg/dL Estimated GFR 52.4 ML/MIN Glucose 83 (74-106) mg/dL Calcium 9.2 (8.4-10.2) mg/dL Total Bilirubin 0.40 (0.2-1.3) mg/dL AST 21 (14-36) U/L ALT 14 (0-35) U/L Alkaline Phosphatase 109 (38-126) U/L Troponin I (0.000-0.033) ng/mL Serum Total Protein 7.3 (6.3-8.2) g/dL Albumin 4.4 (3.5-5.0) g/dL Influenza Type A Ag (NEGATIVE) Influenza Type B Ag (NEGATIVE) RSV (PCR) (NEGATIVE) SARS-CoV-2 (PCR) (NEGATIVE) Slides for Path Review - Progress Progress: re-examined Air Movement: fair Progress Note: 09/04/24 07:33 pt continues to be vitally stable troponins trending down slightly pt on heparin drip 09/04/24 13:06 I spoke w/ Dr Crum - cardiology at [facility] who recommends pt receive aspirin 325mg loading dose, Dr Crum and Dr Portillo (hospitalist) are willing to accept pt for transfer 09/04/24 14:25 transport arrived and is transporting pt to [facility] Blood Culture(s) Obtained: No Antibiotics given: No Will see patient in: hospital (full admit) Counseled pt/family regarding: lab results, diagnosis, need for follow-up Medical Desision Making - Diagnostic Testing Diagnostic test were ordered, analyzed, and reviewed by me: Yes Radiological Interpretation: Reviewed by me, Teleradiologist Report - Risk of complications The pt has a high risk of morbidity or mortality based on: Decision regarding hospitilization or escalation of hosp level of care - Departure Departure Disposition: Transfer Critical Care Time: No
[2024-09-03 20:42] LABS: BASOPHIL % 0.5 % (0.1-1.2); Basophil (Absolute #) 0.03 x10^3/uL (0.01-0.08); Eosinophil % 2.8 % (0.7-5.8); Eosinophil (Absolute #) 0.17 x10^3/uL (0.04-0.36); Hematocrit 42.3 % (34.1-44.9); Hemoglobin 13.9 g/dL (11.2-15.7); IMMATURE GRAN # 0.03 x10^3u/L (0.001-0.031); IMMATURE GRAN % 0.5 % (0.001-0.429); Lymphocyte (Absolute #) 1.98 x10^3/uL (1.18-3.74); Lymphocytes % 32.4 % (19.3-51.7); Mean Cell Volume 97.9 fL (79.4-94.8); Mean Corpuscular Hemoglobin 32.2 pg (25.6-32.2); Mean Corpuscular Hgb Concent. 32.9 g/dL (32.2-35.5); Monocytes % 9.8 % (4.7-12.5); Platelet Count 165 x10^3/uL (182-369); Red Blood Count 4.32 x10^6/uL (3.93-5.22); Red Cell Distribution Width 13.2 % (11.7-14.4); White Blood Count 6.1 x10^3/uL (3.98-10.04)
[2024-09-03 20:56] LABS: ALBUMIN 4.4 g/dL (3.5-5.0); ANION GAP 14.2 MEQ/L (5-15); BILIRUBIN,TOTAL 0.4 mg/dL (0.2-1.3); Calcium 9.2 mg/dL (8.4-10.2); Creatinine 1 1.14 mg/dL (0.52-1.04); EST GLOMERULAR FILTRATION RATE 52.4 ML/MIN; Potassium 4.3 mmol/L (3.5-5.1); Total Protein 7.3 g/dL (6.3-8.2)
--- NOTE | 2024-09-03 21:11 | XRAY ---
Indication: Chest pain. Comparison: December 28, 2023 Portable chest again demonstrates COPD with new mild bibasilar infiltrates/atelectasis/effusions. Heart not enlarged. Bony thorax intact again with osteopenia, mild degenerative changes, and lower cervical fusion.
[2024-09-03 21:19] LABS: INFLUENZA A NEGATIVE (NEGATIVE); INFLUENZA B NEGATIVE (NEGATIVE); RESPIRATORY SYNCTIAL VIRUS NEGATIVE (NEGATIVE); SARS-CoV-2 Xpert Express NEGATIVE (NEGATIVE)
[2024-09-03] MEDS ORDERED: HEPARIN 5000 UNITS/0.5 ML (HIGH RISK MED) ONE ×2 (21:42→21:46)
[2024-09-03] MEDS ORDERED: Heparin 25,000 units/D5W: USE ORDER SET PROTO 25,000 UNITS/250 ML BAG IV ONE (21:46)
[2024-09-03 21:48] LABS: INR 0.91 (0.8-3.0); PTT 25.3 SECONDS (25.1-36.5)
[2024-09-03] MEDS: HEPARIN 5000 UNITS/0.5 ML (HIGH RISK MED) IV STA (21:51)
[2024-09-03] MEDS: Heparin 25,000 units/D5W: USE ORDER SET PROTO 25,000 UNITS/250 ML BAG IV SCH (21:53)
--- NOTE | 2024-09-03 23:21 | XRAY ---
CLINICAL HISTORY: chest pain COMPARISON: Comparison is made with CT dated 07/30/2024. TECHNIQUE: CT angiography of the chest was performed with and without intravenous contrast with the following protocol: axial images with, reconstructed coronal and sagittal images. Non-contrast images were initially acquired, followed by contrast-enhanced images in arterial and venous phases. Intravenous contrast [80ml Isovue 370] was administered using automated injection techniques. Bolus tracking was employed to optimize arterial phase imaging. One of these 3D techniques was utilized: Maximum Intensity Pixel (MIP), 3D Reconstructed Images, Volume Rendered Images, Surface Shaded Rendering. One of the following dose reduction techniques was utilized for this exam: Automated exposure control, adjustment of the mA and/or kV according to patient size, and use of iterative reconstruction. FINDINGS: Aorta and Great Vessels: Ascending Aorta: Normal in caliber, no aneurysm, dissection however minimal atherosclerotic wall calcifications are seen. Aortic Arch: Normal in caliber, no aneurysm, dissection however minimal atherosclerotic wall calcifications are seen. Descending Aorta: Normal in caliber, no aneurysm, dissection however minimal atherosclerotic wall calcifications are seen. Pulmonary Arteries: The main pulmonary artery and its branches are patent. No evidence of pulmonary embolism or significant stenosis. Heart: Cardiac Chambers: Normal in size. No evidence of cardiomegaly. Atherosclerotic wall calcifications of coronary arteries. Pericardium: No pericardial effusion or thickening. Lungs and Pleura: A patch of consolidation with air bronchograms is seen in the posterior basal segment of right lower lobe. Bilateral centrilobular emphysematous changes are seen with upper lobe predominance. Bilateral lower lobe atelectatic changes are seen. No pleural effusion. Mediastinum: No mediastinal mass or abnormal lymphadenopathy. Normal appearance of the trachea and central bronchi. Hilar Structures: Hilar structures are normal without enlargement. Chest Wall: No mass lesions or abnormalities in the chest wall. Vascular Structures: Superior Vena Cava: Patent without evidence of stenosis or thrombus. Inferior Vena Cava: Patent without evidence of stenosis or thrombus. Bones and Soft Tissues: No fractures, lytic, or blastic lesions of the visualized bony structures. Thoracic spine show mild degenerative changes with intervertebral disc prosthesis in lower cervical spine noted. IMPRESSION: 1. CT angiography chest show no evidence of pulmonary embolism or aortic aneurysm, dissection however minimal atherosclerotic wall calcifications are seen. 2. Right lower lobe consolidation suggestive of infective process. 3. Emphysematous lung disease. 4. On comparison to previous CT dated 07/30/2024 interval regression in previous right lung consolidations with resolution of right pleural effusion on current study. Electronically Signed by: Zulema Jones MD. (09/03/2024 23:17:31 EST)
[2024-09-04] MEDS ORDERED: ATARAX 25 MG ONE (01:05)
[2024-09-04] MEDS ORDERED: COREG 12.5 MG ONE (01:15)
[2024-09-04] MEDS: COREG 12.5 MG PO SCH (01:20)
[2024-09-04] MEDS: Effexor XR 75 MG PO ONE (01:20)
[2024-09-04] MEDS: REQUIP 2MG TAB PO ONE (01:20)
[2024-09-04] MEDS: Neurontin PO ONE (01:20)
[2024-09-04] MEDS: ATARAX 25 MG PO ONE (01:20)
[2024-09-04 05:33] LABS: Hematocrit 40.4 % (34.1-44.9); Hemoglobin 13.2 g/dL (11.2-15.7); Mean Cell Volume 99.3 fL (79.4-94.8); Mean Corpuscular Hemoglobin 32.4 pg (25.6-32.2); Mean Corpuscular Hgb Concent. 32.7 g/dL (32.2-35.5); Mean Platelet Volume 9.8 fL (9.4-12.3); Platelet Count 143 x10^3/uL (182-369); Red Blood Count 4.07 x10^6/uL (3.93-5.22); Red Cell Distribution Width 13.2 % (11.7-14.4); White Blood Count 5.1 x10^3/uL (3.98-10.04)
[2024-09-04] MEDS ORDERED: HEPARIN 5000 UNITS/0.5 ML (HIGH RISK MED) ONE (06:10)
[2024-09-04] MEDS: HEPARIN 5000 UNITS/0.5 ML (HIGH RISK MED) IV ONE (06:15)
[2024-09-04 09:10] LABS: Slide Review YES
[2024-09-04] MEDS ORDERED: BABY ASPIRIN 81 MG CHEW ONE (13:34)
[2024-09-04] MEDS: BABY ASPIRIN 81 MG CHEW PO ONE (13:35)
[2024-09-04 14:03] VITALS: BP 148/78; PULSE 80; RESP 23; O2SAT 97
== END 2024-09-04 14:25 | disposition short-term general hospital (02) ==
LOC: ED 20:04
DX: I21.4 Non-ST elevation (NSTEMI) myocardial infarction (principal); R07.9 Chest pain, unspecified; E78.5 Hyperlipidemia, unspecified; I10 Essential (primary) hypertension; Z79.02 Long term (current) use of antithrombotics/antiplatelets; Z79.899 Other long term (current) drug therapy; Z72.0 Tobacco use
CPT/HCPCS: 0241U; 36415; 71045; 71260; 80053; 84484; 85025; 85027; 85379; 85610; 85730; 93005; 96365; 96375; 96376; 99285; Q3014; 96374; J1644; A9270-GY

== ENCOUNTER 2024-10-02 14:55 | Emergency (ER) | payer MEDICARE, OTHER ==
[2024-10-02] MEDS ORDERED: SUBLIMAZE 100 MCG/2 ML ONE (16:38)
--- NOTE | 2024-10-02 16:38 | ERPHSYRPT ---
- History of Present Illness Source: patient Exam Limitations: no limitations Severity of Pain-Max: severe Severity of Pain-Current: severe Lower Extremities Pain: leg: left, knee: left, foot: left, ankle: left Modifying Factors: Improves With: nothing Hx Tetanus, Diphtheria Vaccination/Date Given: Yes Hx Influenza Vaccination/Date Given: No Hx Pneumococcal Vaccination/Date Given: No <RADHA BANUELOS - Last Filed: 10/02/24 18:59> <BEVERLY CEVALLOS - Last Filed: 10/02/24 20:01> - History of Present Illness Time Seen by Provider: 10/02/24 16:32 Physician History: 69yo f pmhx CAD, prior NSTEMI, PAD presents for evaluation of left leg pain. Pt reports LE pain that has been worsening over the past month, has worsened significantly in the past week. Pt had left LE artery stents placed [address] Mayes at [facility]. Pt had outpatient LE doppler on 09/28/24 that showed new occluded stent in med/distal superficial femoral artery - pt was scheduled for re-evaluation by her surgeon at that time for 10/11/24. Pt reports the pain is now so bad that she is having difficulties ambulating and it is affecting her daily activities signficantly. Pt denies any cp or difficulty breathing, denies n/v/d. (RADHA BANUEOLS) Allergies/Adverse Reactions: No Known Drug Allergies Allergy (Verified 10/02/24 16:17) Home Medications: Ropinirole HCl 4 mg PO HS 01/28/15 [History] Hydroxyzine HCl 25 mg [Atarax 25 mg] 50 mg PO HS 09/28/23 [History] carvediloL [Coreg] 12.5 mg PO BIDWMEALS 09/28/23 [History] Gabapentin 800 mg PO TID 07/30/24 [History] Venlafaxine HCl [Venlafaxine HCl ER] 150 mg PO HS 07/30/24 [History] Spironolactone 25 mg [Aldactone 25 MG] 25 mg PO BID 09/03/24 [History] Aspirin 81 gm Chew [Baby Aspirin 81 mg Chew] 81 mg PO DAILY 10/02/24 [History] Clopidogrel Bisulfate [Clopidogrel] 75 mg PO DAILY 10/02/24 [History] Travel Risk - Emerging Infectious Disease Are you exhibiting symptoms associated with any current EIDs: Yes Symptoms: Shortness of Breath <RADHA BANUELOS - Last Filed: 10/02/24 18:59> - Review of Systems Constitutional: No Symptoms Respiratory: No Symptoms Cardiac: No Symptoms, No Edema Abdominal/Gastrointestinal: No Symptoms Musculoskeletal: Myalgias <RADHA BANUELOS - Last Filed: 10/02/24 18:59> - Past Medical History Pertinent Past Medical History: Yes Neurological History: No Pertinent History ENT History: Cataracts Cardiac History: Coronary Artery Disease, High Cholesterol, Hypertension, Myocardial Infarction ([place]) Respiratory History: COPD Endocrine Medical History: No Pertinent History Musculoskeletal History: No Pertinent History GI Medical History: GERD, Gallbladder Disease History: No Pertinent History Psycho-Social History: Depression Female Reproductive Disorders: Other Other Medical History: PSH: L WRIST ORIF X 2, L RTC REPAIR,. CARDIAC STENTS, GALL BLADDER SURGERY. tumor which is why she had a hysterectomy. PMH: CURRENT SMOKER - Past Surgical History Past Surgical History: Yes Neuro Surgical History: No Pertinent History Cardiac: Cardiac Catheterization, Cardiac Stent Respiratory: No Pertinent History Gastrointestinal: Cholecystectomy Genitourinary: No Pertinent History Musculoskeletal: Orthopedic Surgery Female Surgical History: Hysterectomy Other Surgical History: left knee scope. toe nail removel. shoulder surgery. thumb surgery. CARDIAC STENTS X2. stents in left leg. lt leg- 2 stents - Social History Smoking Status: Current every day smoker How long have you smoked: 35 Exposure to second hand smoke: No Drug Use: none - Social Determinants of Health Will the patient participate in the screening: Yes Do you worry about a steady place to live?: No In the past 12 months,have you had to go without utilities?: No Transportation Issues: No Has anyone in your support network made you feel unsafe?: No Have you or anyone in your house had to go w/o enough food: No <RADHA BANUELOS - Last Filed: 10/02/24 18:59> - Physical Exam General Appearance: no apparent distress, alert Cardiovascular/Respiratory Exam: chest non-tender, normal breath sounds, regular rate/rhythm, heart sounds normal, no respiratory distress, decreased pulses (absent left pedal pulse) Gastrointestinal/Abdominal Exam: non-tender Legs Exam: right leg: non-tender, normal inspection, left leg: pain (from foot to knee anterior and posterior), soft tissue tenderness (from foot to knee anterior and posterior), swelling (minimal), other (erythema, from foot to knee), bilateral leg: no evidence of injury Ankle Exam: left ankle: pain, soft tissue tenderness Foot Exam: left foot: pain, soft tissue tenderness, bilateral foot: no evidence of injury Neuro/Tendon Exam: normal sensation, normal motor functions Mental Status Exam: alert, oriented x 3 Skin Exam: other (left leg from knee to foot - erythema, cool, faint pulses palpable) SpO2 Interpretation: normal SpO2: 100 O2 Delivery: Room Air <RADHA BANUELOS - Last Filed: 10/02/24 18:59> - Nursing Vital Signs Nursing Vital Signs: Initial Vital Signs Temperature 97.5 F 10/02/24 16:18 Pulse Rate 78 10/02/24 16:18 Respiratory Rate 27 H 10/02/24 16:18 Blood Pressure 220/75 10/02/24 16:18 O2 Sat by Pulse Oximetry 100 10/02/24 16:18 Pain Scale Pain Intensity 10 - Course EKG Interpreted by Me: RATE (71), Sinus Rhythm, Non-specific ST Changes, Other (not suggestive of acute ischemia, qtcb 473) <RADHA BANUELOS - Last Filed: 10/02/24 18:59> Ordered Tests: Active Orders 24 hr Category Date Time Status EKG-ER Only STAT Care 10/02/24 16:31 Active CBC Q48H Lab 10/03/24 06:00 Ordered CBC Q48H Lab 10/05/24 06:00 Ordered CBC Q48H Lab 10/07/24 06:00 Ordered CBC Q48H Lab 10/09/24 06:00 Ordered CBC Q48H Lab 10/11/24 06:00 Ordered CBC Q48H Lab 10/13/24 06:00 Ordered CBC Q48H Lab 10/15/24 06:00 Ordered CBC W DIFF Stat Lab 10/02/24 17:15 Completed CMP Stat Lab 10/02/24 17:15 Completed PROTIME WITH INR Stat Lab 10/02/24 17:15 Completed PTT Q4H Lab 10/02/24 22:00 Ordered PTT Q4H Lab 10/03/24 02:00 Ordered PTT Q4H Lab 10/03/24 06:00 Ordered PTT Q4H Lab 10/03/24 10:00 Ordered PTT Q4H Lab 10/03/24 14:00 Ordered PTT Q4H Lab 10/03/24 18:00 Ordered PTT Q4H Lab 10/03/24 22:00 Ordered PTT Q4H Lab 10/04/24 02:00 Ordered PTT Q4H Lab 10/04/24 06:00 Ordered PTT Q4H Lab 10/04/24 10:00 Ordered PTT Q4H Lab 10/04/24 14:00 Ordered PTT Stat Lab 10/02/24 17:15 Completed TROPONIN Q4H Lab 10/02/24 17:15 Completed TROPONIN Q4H Lab 10/02/24 20:45 Ordered TROPONIN Q4H Lab 10/03/24 00:45 Ordered Medication Summary Generic Name Dose Route Start Last Admin Trade Name Freq PRN Reason Stop Dose Admin Heparin Sodium/Dextrose 25,000 units in 250 mls @ 7.044 mls/hr 10/02/24 18:00 10/02/24 18:06 Heparin 25,000 Units/D5w: Use Order Set Tricia IV 11/01/24 17:59 12 units/kg/hr .Q24H MOISES 7.044 mls/hr Administration Protocol 12 UNITS/KG/HR Discontinued Medications Generic Name Dose Route Start Last Admin Trade Name Freq PRN Reason Stop Dose Admin Fentanyl Citrate 25 mcg 10/02/24 16:31 10/02/24 16:41 Fentanyl Citrate 100 Mcg/2 Ml* Vial IV 10/02/24 16:32 25 mcg STAT ONE Administration Fentanyl Citrate Confirm 10/02/24 16:38 Fentanyl Citrate 100 Mcg/2 Ml* Vial Administered 10/02/24 16:39 Dose 100 mcg .ROUTE .STK-MED ONE Heparin Sodium (Beef Lung) 3,500 unit 10/02/24 17:53 10/02/24 18:05 Heparin 5000 Units/0.5 Ml 5,000 Unit/0.5 Ml Syr 60 unit/kg (3500 unit) 0 10/02/24 17:54 3,500 unit IV Administration STAT STA Heparin Sodium (Beef Lung) Confirm 10/02/24 17:59 Heparin 5000 Units/0.5 Ml 5,000 Unit/0.5 Ml Syr Administered 10/02/24 18:00 Dose 5,000 unit .ROUTE .STK-MED ONE Lab/Rad Data: Laboratory Result Diagrams 10/02/24 17:15 10/02/24 17:15 Laboratory Results 10/02/24 10/02/24 10/02/24 Range/Units 17:15 17:15 17:15 WBC (3.98-10.04) x10^3/uL RBC (3.93-5.22) x10^6/uL Hgb (11.2-15.7) g/dL Hct (34.1-44.9) % MCV (79.4-94.8) fL MCH (25.6-32.2) pg MCHC (32.2-35.5) g/dL RDW (11.7-14.4) % Plt Count (182-369) x10^3/uL MPV (9.4-12.3) fL Gran % (34.0-71.1) % Immature Gran % (Auto) (0.001-0.429) % Nucleat RBC Rel Count (0.00-0.2) % Eos # (Auto) (0.04-0.36) x10^3/uL Immature Gran # (Auto) (0.001-0.031) x10^3u/L Absolute Lymphs (auto) (1.18-3.74) x10^3/uL Absolute Monos (auto) (0.24-0.86) x10^3/uL Absolute Nucleated RBC (0.00-0.012) x10^3u/L Lymphocytes % (19.3-51.7) % Monocytes % (4.7-12.5) % Eosinophils % (0.7-5.8) % Basophils % (0.1-1.2) % Absolute Granulocytes (1.56-6.13) x10^3/uL Basophils # (0.01-0.08) x10^3/uL PT 10.3 (9.4-12.5) SECONDS INR 0.94 (0.8-3.0) APTT 26.2 (25.1-36.5) SECONDS Sodium 136 (135-145) mmol/L Potassium 4.5 (3.5-5.1) mmol/L Chloride 102 (98-107) mmol/L Carbon Dioxide 26 (22-30) mmol/L Anion Gap 12.9 (5-15) MEQ/L BUN 12 (7-17) mg/dL Creatinine 0.89 (0.52-1.04) mg/dL Estimated GFR 70.1 ML/MIN Glucose 84 (74-106) mg/dL Calcium 8.7 (8.4-10.2) mg/dL Total Bilirubin 0.50 (0.2-1.3) mg/dL AST 23 (14-36) U/L ALT 15 (0-35) U/L Alkaline Phosphatase 99 (38-126) U/L Troponin I < 0.012 (0.000-0.033) ng/mL Serum Total Protein 6.6 (6.3-8.2) g/dL Albumin 4.1 (3.5-5.0) g/dL 10/02/24 Range/Units 17:15 WBC 3.6 L (3.98-10.04) x10^3/uL RBC 4.17 (3.93-5.22) x10^6/uL Hgb 13.6 (11.2-15.7) g/dL Hct 40.6 (34.1-44.9) % MCV 97.4 H (79.4-94.8) fL MCH 32.6 H (25.6-32.2) pg MCHC 33.5 (32.2-35.5) g/dL RDW 12.9 (11.7-14.4) % Plt Count 141 L (182-369) x10^3/uL MPV 9.4 (9.4-12.3) fL Gran % 38.7 (34.0-71.1) % Immature Gran % (Auto) 0.3 (0.001-0.429) % Nucleat RBC Rel Count 0.0 (0.00-0.2) % Eos # (Auto) 0.19 (0.04-0.36) x10^3/uL Immature Gran # (Auto) 0.01 (0.001-0.031) x10^3u/L Absolute Lymphs (auto) 1.69 (1.18-3.74) x10^3/uL Absolute Monos (auto) 0.30 (0.24-0.86) x10^3/uL Absolute Nucleated RBC 0.00 (0.00-0.012) x10^3u/L Lymphocytes % 46.7 (19.3-51.7) % Monocytes % 8.3 (4.7-12.5) % Eosinophils % 5.2 (0.7-5.8) % Basophils % 0.8 (0.1-1.2) % Absolute Granulocytes 1.40 L (1.56-6.13) x10^3/uL Basophils # 0.03 (0.01-0.08) x10^3/uL PT (9.4-12.5) SECONDS INR (0.8-3.0) APTT (25.1-36.5) SECONDS Sodium (135-145) mmol/L Potassium (3.5-5.1) mmol/L Chloride (98-107) mmol/L Carbon Dioxide (22-30) mmol/L Anion Gap (5-15) MEQ/L BUN (7-17) mg/dL Creatinine (0.52-1.04) mg/dL Estimated GFR ML/MIN Glucose (74-106) mg/dL Calcium (8.4-10.2) mg/dL Total Bilirubin (0.2-1.3) mg/dL AST (14-36) U/L ALT (0-35) U/L Alkaline Phosphatase (38-126) U/L Troponin I (0.000-0.033) ng/mL Serum Total Protein (6.3-8.2) g/dL Albumin (3.5-5.0) g/dL <RADHA BANUELOS - Last Filed: 10/02/24 18:59> - Progress Progress: improved, pain not gone completely <BEVERLY CEVALLOS - Last Filed: 10/02/24 20:01> - Progress Progress Note: 10/02/24 17:31 I spoke w/ Dr Roberto Lopez - vascular surgeon at [facility] [place], he recommends starting pt on heparin drip and transferring to their facility for further evaluation as inpatient 10/02/24 18:59 Pt tolerating heparin drip well I discussed pt case w/ Dr Cevallos who will assume care at 1900 (RADHA BANUELOS) I got a call back from the hospitalist name Dr. Dos Santos She excepted the patient.The patient has been started on a heparin drip. We are waiting for a bed and then we will transfer the patient.I went and evaluated the patient. She was having some more pain. She does appear to have adequate pulses in the left lower extremity at this time. It is not pallorous and a dorsal pedal is pulses detected. It is faint however. 10/02/24 20:00 10/02/24 20:01 (BEVERLY CEVALLOS) - Departure Critical Care Time: Yes Critical Care Time(excluding separately billable procedures): Critical 30-74 mins <RADHA BANUELOS - Last Filed: 10/02/24 18:59> - Departure Departure Disposition: Transfer <BEVERLY CEVALLOS - Last Filed: 10/02/24 20:01> - Departure Clinical Impression: PAD (peripheral artery disease) Occlusion of stent of peripheral artery Qualifiers: Encounter type: initial encounter Qualified Code(s): T82.599A - Other mechanical complication of unspecified cardiac and vascular devices and implants, initial encounter Condition: Stable Referrals: JASVIR CALIXTO NP [Primary Care Provider] - Follow up/PCP as directed
[2024-10-02] MEDS: SUBLIMAZE 100 MCG/2 ML IV ONE (16:41)
[2024-10-02 17:30] LABS: BASOPHIL % 0.8 % (0.1-1.2); Basophil (Absolute #) 0.03 x10^3/uL (0.01-0.08); Eosinophil % 5.2 % (0.7-5.8); Eosinophil (Absolute #) 0.19 x10^3/uL (0.04-0.36); Hematocrit 40.6 % (34.1-44.9); Hemoglobin 13.6 g/dL (11.2-15.7); IMMATURE GRAN # 0.01 x10^3u/L (0.001-0.031); IMMATURE GRAN % 0.3 % (0.001-0.429); Lymphocyte (Absolute #) 1.69 x10^3/uL (1.18-3.74); Lymphocytes % 46.7 % (19.3-51.7); Mean Cell Volume 97.4 fL (79.4-94.8); Mean Corpuscular Hemoglobin 32.6 pg (25.6-32.2); Mean Corpuscular Hgb Concent. 33.5 g/dL (32.2-35.5); Mean Platelet Volume 9.4 fL (9.4-12.3); Monocytes % 8.3 % (4.7-12.5); Neutrophil % 38.7 % (34.0-71.1); Platelet Count 141 x10^3/uL (182-369); Red Blood Count 4.17 x10^6/uL (3.93-5.22); Red Cell Distribution Width 12.9 % (11.7-14.4); White Blood Count 3.6 x10^3/uL (3.98-10.04)
[2024-10-02 17:53] LABS: INR 0.94 (0.8-3.0); PROTIME 10.3 SECONDS (9.4-12.5); PTT 26.2 SECONDS (25.1-36.5)
[2024-10-02 17:56] LABS: ALBUMIN 4.1 g/dL (3.5-5.0); ANION GAP 12.9 MEQ/L (5-15); BILIRUBIN,TOTAL 0.5 mg/dL (0.2-1.3); Calcium 8.7 mg/dL (8.4-10.2); Creatinine 1 0.89 mg/dL (0.52-1.04); EST GLOMERULAR FILTRATION RATE 70.1 ML/MIN; Potassium 4.5 mmol/L (3.5-5.1); Total Protein 6.6 g/dL (6.3-8.2)
[2024-10-02] MEDS ORDERED: HEPARIN 5000 UNITS/0.5 ML (HIGH RISK MED) ONE (17:59)
[2024-10-02] MEDS ORDERED: Heparin 25,000 units/D5W: USE ORDER SET PROTO 25,000 UNITS/250 ML BAG IV ONE (18:00)
[2024-10-02] MEDS: HEPARIN 5000 UNITS/0.5 ML (HIGH RISK MED) IV STA (18:05)
[2024-10-02] MEDS: Heparin 25,000 units/D5W: USE ORDER SET PROTO 25,000 UNITS/250 ML BAG IV SCH (18:06)
[2024-10-02 22:02] VITALS: TEMP 96.9
[2024-10-02 23:06] VITALS: BP 149/90; PULSE 89; RESP 17; O2SAT 94
[2024-10-02] MEDS ORDERED: ATARAX 25 MG ONE (23:14)
[2024-10-02] MEDS: ATARAX 25 MG PO ONE (23:16)
[2024-10-02] MEDS ORDERED: Effexor XR 75 MG ONE (23:19)
[2024-10-02] MEDS ORDERED: REQUIP 2MG TAB ONE (23:19)
[2024-10-02] MEDS ORDERED: Neurontin ONE (23:19)
[2024-10-02] MEDS: REQUIP 2MG TAB PO SCH (23:23)
[2024-10-02] MEDS: Neurontin PO SCH (23:23)
[2024-10-02] MEDS: Effexor XR 75 MG PO ONE (23:25)
== END 2024-10-02 23:36 | disposition short-term general hospital (02) ==
LOC: ED 14:55
DX: I73.9 Peripheral vascular disease, unspecified (principal); T82.599A Other mechanical complication of unspecified cardiac and vascular devices and implants, initial encounter; I82.402 Acute embolism and thrombosis of unspecified deep veins of left lower extremity; M79.605 Pain in left leg; E78.5 Hyperlipidemia, unspecified; I10 Essential (primary) hypertension; Z79.02 Long term (current) use of antithrombotics/antiplatelets; Z79.899 Other long term (current) drug therapy; Z72.0 Tobacco use
CPT/HCPCS: 36415; 80053; 84484; 85025; 85610; 85730; 93005; 96374; 96375; 99285; 99291; J1644; J3010; A9270-GY

== ENCOUNTER 2024-11-20 20:27 | Emergency (ER) | payer MEDICARE, OTHER ==
--- NOTE | 2024-11-20 20:49 | ERPHSYRPT ---
- History of Present Illness Time Seen by Provider: 11/20/24 20:49 Source: patient, family Exam Limitations: no limitations Physician History: This is a 69-year-old white female patient who arrives by private vehicle accompanied by family member and whose primary care physician's nurse practitioner Wesley. The patient underwent, what appears to be, a femoropopliteal procedure on the left side on November 14, 2024. Postoperatively she was not placed on any antibiotics, she is on Plavix and she is concerned that there is redness around the left medial thigh incision site with some mild serosanguineous drainage. She also has some swelling in her left lower extremity. Patient is on Plavix. Patient has no cough. Patient has no shortness of breath. Timing/Duration: today Quality: other (No significant pain) Severity: mild Location: extremities (Left lower extremity) Associated Symptoms: denies symptoms Allergies/Adverse Reactions: No Known Drug Allergies Allergy (Verified 11/20/24 21:07) Home Medications: Ropinirole HCl 4 mg PO HS 01/28/15 [History] Hydroxyzine HCl 25 mg [Atarax 25 mg] 50 mg PO HS 09/28/23 [History] carvediloL [Coreg] 12.5 mg PO BIDWMEALS 09/28/23 [History] Gabapentin 800 mg PO TID 07/30/24 [History] Venlafaxine HCl [Venlafaxine HCl ER] 150 mg PO HS 07/30/24 [History] Spironolactone 25 mg [Aldactone 25 MG] 25 mg PO BID 09/03/24 [History] Aspirin 81 gm Chew [Baby Aspirin 81 mg Chew] 81 mg PO DAILY 10/02/24 [History] Clopidogrel Bisulfate [Clopidogrel] 75 mg PO DAILY 10/02/24 [History] Hx Tetanus, Diphtheria Vaccination/Date Given: Yes Hx Influenza Vaccination/Date Given: No Hx Pneumococcal Vaccination/Date Given: No Travel Risk - International Travel Have you traveled outside of the country in past 3 weeks: No - Emerging Infectious Disease Are you exhibiting symptoms associated with any current EIDs: Yes Symptoms: Shortness of Breath - Review of Systems Constitutional: No Symptoms Eyes: No Symptoms Ears, Nose, & Throat: No Symptoms Respiratory: No Symptoms Cardiac: No Symptoms Abdominal/Gastrointestinal: No Symptoms Genitourinary Symptoms: No Symptoms Musculoskeletal: No Symptoms Skin: Other (Redness around the left medial thigh postoperative incision site with mild serosanguineous drainage) Neurological: No Symptoms Psychological: No Symptoms Endocrine: No Symptoms Hematologic/Lymphatic: No Symptoms Immunological/Allergic: No Symptoms All Other Systems: Reviewed and Negative - Past Medical History Pertinent Past Medical History: Yes Neurological History: No Pertinent History ENT History: Cataracts Cardiac History: Coronary Artery Disease, High Cholesterol, Hypertension, Myocardial Infarction ([place]) Respiratory History: COPD Endocrine Medical History: No Pertinent History Musculoskeletal History: No Pertinent History GI Medical History: GERD, Gallbladder Disease History: No Pertinent History Psycho-Social History: Depression Female Reproductive Disorders: Other Other Medical History: PSH: L WRIST ORIF X 2, L RTC REPAIR,. CARDIAC STENTS, GALL BLADDER SURGERY. tumor which is why she had a hysterectomy. PMH: CURRENT SMOKER - Past Surgical History Past Surgical History: Yes Neuro Surgical History: No Pertinent History Cardiac: Cardiac Catheterization, Cardiac Stent Respiratory: No Pertinent History Gastrointestinal: Cholecystectomy Genitourinary: No Pertinent History Musculoskeletal: Orthopedic Surgery Female Surgical History: Hysterectomy Other Surgical History: left knee scope. toe nail removel. shoulder surgery. thumb surgery. CARDIAC STENTS X2. stents in left leg. lt leg- 2 stents - Social History Smoking Status: Current every day smoker How long have you smoked: 35 Exposure to second hand smoke: No Drug Use: none - Social Determinants of Health Will the patient participate in the screening: Yes Do you worry about a steady place to live?: No In the past 12 months,have you had to go without utilities?: No Transportation Issues: No Has anyone in your support network made you feel unsafe?: No Have you or anyone in your house had to go w/o enough food: No - Physical Exam General Appearance: no apparent distress, alert, anxiety, thin Eye Exam: PERRL/EOMI, eyes nml inspection Ears, Nose, Throat Exam: normal ENT inspection, moist mucous membranes Neck Exam: normal inspection, non-tender, supple, full range of motion Respiratory Exam: normal breath sounds, lungs clear, airway intact, No chest tenderness, No respiratory distress Cardiovascular Exam: regular rate/rhythm, normal heart sounds, normal peripheral pulses, other (Patient has dopplerable left posterior tibial and left dorsalis pedis pulses) Gastrointestinal/Abdomen Exam: soft, normal bowel sounds, No tenderness, No guarding Pelvic Exam: not done Rectal Exam: not done Back Exam: normal inspection, normal range of motion, No CVA tenderness, No vertebral tenderness Extremity Exam: normal range of motion, pelvis stable, swelling (Left lower extremitypostoperative), No deformities Skin Exam: other (Left medial thigh incision site suture line appears to be intact with mild caudal serosanguineous fluid present. There is redness around the staple sites.) Lymphatic Exam: No adenopathy SpO2 Interpretation: normal O2 Delivery: Room Air - Course Nursing assessment & vital signs reviewed: Yes - Progress Progress: unchanged Progress Note: 11/20/24 21:29 My medical decision making and the assignment of low complexity to this patient's medical decision making is based on review of the patient's past medical history, review of the patient's medication list, review the patient drug allergy list, history present illness and physical findings on examination. The workup in this patient does not require any radiographic or laboratory studies. Patient is only 6 days out from a femoral-popliteal bypass procedure. I would expect a degree of swelling of her left lower extremities that is apparent today. I also would expect some mild redness around skin staple sites. I do not think the patient requires any laboratory data. Patient is on anticoagulation therapy and I do not think the patient requires D-dimer or venous Doppler of the left lower extremity. She has dopplerable pedal pulses on the left side (operative side) Differential diagnosis includes but is not limited to left lower extremity swelling, localized periincision cellulitis, serosanguineous drainage from the woundpostoperative Counseled pt/family regarding: diagnosis, need for follow-up Medical Desision Making - Independent Historian Additional History obtained from: Family - Diagnostic Testing Diagnostic test were ordered, analyzed, and reviewed by me: No - Risk of complications The pt has a mod risk of morbidity or mortality based on: Need for prescription drug management - Departure Departure Disposition: Home Clinical Impression: Superficial incisional infection of surgical site, Left leg swelling Condition: Stable Critical Care Time: No Referrals: JASVIR CALIXTO NP [Primary Care Provider, [facility]] - Follow up/PCP as directed Additional Instructions: Keep the postoperative incision sites clean as instructed. Make sure that you are following the activity postoperative instructions. Keep the left lower extremity elevated above the level of the heart at all times when you are not ambulating. Take your antibiotics as prescribed. Continue your anticoagulation therapy. Call your surgeon tomorrow, 11/21/2024, to make arrangements for follow-up appointment for further evaluation management. Prescriptions: Smz/Tmp Ds Tablet [Bactrim Ds Tablet] 1 udtab PO BID #14 tablet
[2024-11-20 21:26] VITALS: TEMP 97.4
[2024-11-20] MEDS ORDERED: BACTRIM DS TABLET PO ONE (22:21)
[2024-11-20] MEDS ORDERED: Rocephin 1000 MG INJ ONE (22:21)
[2024-11-20] MEDS ORDERED: XYLOCAINE 1% HCL 20 ML MDV ONE (22:22)
[2024-11-20] MEDS ORDERED: BACIGUENT PACKET ONE (22:22)
[2024-11-20] MEDS: BACTRIM DS TABLET PO ONE (22:23)
[2024-11-20] MEDS: Rocephin 1000 MG INJ IM ONE (22:23)
[2024-11-20] MEDS: BACIGUENT PACKET TP ONE (22:26)
[2024-11-20 22:30] VITALS: RESP 18
[2024-11-20 22:37] VITALS: BP 179/106; O2SAT 98
[2024-11-20 22:40] VITALS: PULSE 94
== END 2024-11-20 22:38 | disposition home or self-care (01) ==
LOC: ED 20:27
DX: T81.41XA Infection following a procedure, superficial incisional surgical site, initial encounter (principal); M79.89 Other specified soft tissue disorders; E78.5 Hyperlipidemia, unspecified; I10 Essential (primary) hypertension; Z79.02 Long term (current) use of antithrombotics/antiplatelets; Z79.899 Other long term (current) drug therapy; Z72.0 Tobacco use
CPT/HCPCS: 96372; 99283; J0696; A9270-GY